=== PATIENT | female | born 1965 | race African-American/Black ===

== ENCOUNTER 2020-03-25 11:01 | Emergency (ER) | payer OTHER ==
--- OUTSIDE RECORDS SUMMARY | 2020-03-25 11:51 | XMS REPORT ---
:1965 Author Organization [employer] Care Team Providers Name Role Phone Darius Graf Provider Role Unavailable Allergies, Adverse Reactions, Alerts Substance Reaction Event Type N.K.D.A. 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
--- OUTSIDE RECORDS SUMMARY | 2020-03-25 11:51 | XMS REPORT ---
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
--- OUTSIDE RECORDS SUMMARY | 2020-03-25 11:51 | XMS REPORT | Continuity of Care Document ---
:1965 Author Organization [facility] Care Team Providers Name Role Phone [facility] Unavailable Un available Problems Problem Status Onset Classification Date Comments Sourc e Date Reported Posterior tibial Active Problem 12/06/2018 [place] [facility] dysfunction [facility] Posterior Active Problem 12/06/2018 [facility] Tibialis [facility]iatry Tendinitis Ass[facility] Type 2 diabetes Active Problem 12/06/2018 [place] [facility] mellitus without Pod iatry complication, Assoc without long-term current use of insulin Joint Active Problem 12/06/2018 [place] [facility] Contracture [facility] Calcaneal spur Active Problem 12/06/2018 [place] [facility] Arthritis - Active Problem 12/06/2018 [place] [facility] Degenerative [facility] y [facility] Medications Medication Details Route Status Patient Ordering Order Source Instructions Provider Date Tramadol one tab orally Active 50 mg orally Koepsel 01/18/20 [place] [facility] every 4-6 hours 18 [facility] prn pain Assoc Allergies, Adverse Reactions, Alerts No Known Medication Allergies Immunizations No Data Provided for This Section Results No Data Provided for This Section Pathology Reports No Data Provided for This Section Diagnostic Reports No Data Provided for This Section Consultation Notes No Data Provided for This Section Discharge Summaries No Data Provided for This Section History and Physicals No Data Provided for This Section Vital Signs No Data Provided for This Section Encounters No Data Provided for This Section Procedures No Data Provided for This Section Assessment and Plan No Data Provided for This Section Plan of Care No Data Provided for This Section Social History No Data Provided for This Section Family History No Data Provided for This Section Advance Directives No Data Provided for This Section Functional Status No Data Provided for This Section
--- OUTSIDE RECORDS SUMMARY | 2020-03-25 11:51 | XMS REPORT ---
[...] Primary osteoarthritis of right M19.071 Active foot Assessment Primary osteoarthritis of right M19.071 Active foot Assessment Pain, joint, foot, right M25.571 Act irena Medications Medication Code Code Instructions Start End Status Dosage System Date Date Lisinopril-Hyd [facility] [id number] Active not rochlorothiazi defined de Aspirin [address] [facility] [id number] Active not defined Tramadol HCl NDC 0 Active not defined PredniSONE [facility] [id number] 10 MG Orally Feb 11Jan Active 1 t ablet Once a day 2019 Metformin HCl [facility] [address]-17 Active not defined Results No Known Results Summary Purpose [employer]ClinicalWorks Submission
--- OUTSIDE RECORDS SUMMARY | 2020-03-25 11:51 | XMS REPORT | Continuity of Care Document ---
:1965 Author Organization [facility] t Address [address] [place] [address] Care Team Providers Name Role Phone Iraida RAIN Primary Care Physician Unavailable UNKE Attending Clinician Unavailable CANDIDO Attending Clinician Unavailable Gaurang FLOWERS Attending Clinician Gabino LANGE, L Attending Clinician Unavailable Candido FLOWERS Attending Clinician Iraida Rain MD Attending Clinician Payers Payer Name Policy Type Policy Number Effective Date Expiration Date Bassam BISHOP O POS [id number] 2016 00:00:00 OPEN ACCESS Problems Condition Condition Condition Status Onset Resolution Last Treating Co mments Source Name Details Category Date Date Treatment Clinician Date Endometriu Endometriu Disease Active 0 M D m m 1-17 Anderso thickened thickened 00:00: n 00 Postmenopa Postmenopa Disease Active 0 M D usal usal 09-28 Anderso bleeding bleeding 00:00: n 00 Morbid Morbid Disease Active MD obesity obesity 09-27 Anderso 00:00: n 00 Dysfunctio Dysfunctio Disease Active 0 M D nal nal 09-27 Anderso uterine uterine 00:00: n bleeding bleeding 00 Hypertensi Hypertensi Disease Active 2019-0 M D on on 09-27 Anderso 00:00: n 00 Primary Primary Problem Active [facility] left knee left knee [facility] Primary Primary Problem Active [facility]oarth[facility] left [facility] left foot l [facility] Primary Primary Problem Active [facility] osteoarthr osteoarthr [facility] - [facility] right foot right foot l [facility] Posterior Problem Active 2018-12-06 Me moria tibial 02:45:07 l tendon [facility] dysfunctio Posterior n tibial tendon dysfunctio n Active Problem 12/06/2018 [facility] Posterior Problem Active 2018-12-06 Me moria Tibialis 02:45:07 l Tendinitis Ashkan n Posterior Tibialis Tendinitis Active Problem 12/06/2018 [facility] Type 2 Problem Active 2018-12-06 [facility] diabetes 02:45:07 l mellitus Type 2 Ashkan n without diabetes complicati mellitus on, without without complicati long-term on, current without use of long-term insulin current use of insulin Active Problem 12/06/2018 [facility] Joint Problem Active 2018-12-06 [facility] Contractur 02:45:07 l e Joint [place] Contractur e Active Problem 12/06/2018 [facility] Calcaneal Problem Active 2018-12-06 Me moria spur 02:45:07 l [place] Calcaneal spur Active Problem 12/06/2018 [facility] Arthritis Problem Active 2018-12-06 Me moria - 02:45:07 l Degenerati Ashkan n ve Arthritis - Degenerati ve Active Problem 9 [facility] Allergies, Adverse Reactions, Alerts This patient has no known allergies or adverse reactions. Family History Family Member Diagnosis Comments Start Date Stop Date Source Paternal aunt Breast cancer MD Witt son Natural sister -Breast cancer Social History Social Habit Start Date Stop Date Quantity Comments Source Sex Assigned At MD Ortiz on Tobacco use and 2019-06-15 2019-06-15 Never used MD Ortiz on exposure 00:00:00 00:00:00 Alcohol intake 2019-06-15 2019-06-15 Current drinker of MD Omer 00:00:00 00:00:00 alcohol (finding) Alcohol Comment 2018-09-28 2018-09-28 Occasional drinker Anna Omer 00:00:00 00:00:00 Smoking Status Start Date Stop Date Source Never smoker MD Omer Medications Ordered Filled Start Stop Current Ordering Indication Dosage Frequency Signature Comments Components Source Medication Medication Date Date Medication? Clinician (SIG) Name Name PredniSONE PredniSONE 2019- Yes Darius [address] [facility] 9-14 09-19 [facility] cyanocobala 2020- No 1{tbl} Take 1 M D min, 1-15 -15 tablet by Anderso vitamin 20:10: 00:00 mouth n B-12, 14 :00 daily. (VITAMIN B-12 ORAL) BIOTIN ORAL 2020- No 1{tbl} Take 1 M D 1-15 -15 tablet by Anderso 20:10: 00:00 mouth n 10 :00 daily. cholecalcif Yes 1{tbl} Take 1 MD rickie, 1-15 tablet by Anderso vitamin D3, 20:10: mouth n (VITAMIN D3 09 daily. ORAL) aspirin 81 Yes 81mg Take 81 mg M D mg EC 1-15 by mouth Anderso tablet 20:10: daily. n 09 metFORMIN Yes 1{tbl} Take 1 MD (GLUCOPHAGE 1-16 tablet by And erso ) 500 mg 00:00: mouth n tablet 00 daily. Tramadol Yes Ignacio one tab [facility] a 8-20 Koepsel l 00:00: [place] 00 lisinopril- Yes 1{tbl} Take 1 MD hydrochloro 7-29 tablet by And erso thiazide 00:00: mouth n (PRINZIDE,Z 00 daily. ESTORETIC) 20-12.5 mg per tablet Aspirin 81 Aspirin 81 Yes Darius not [facility] Tramadol Tramadol Yes Darius not [facility] HCl HCl Graf defined [facility] Metformin Metformin Yes Darius not [facility] HCl HCl [facility]f defined [facility] Lisinopril- Lisinopril- Yes Darius not [facility] Hydrochloro Hydrochloro Graf defined [facility] Vital Signs Vital Name Observation Time Observation Value Comments Source Systolic blood pressure 2019-06-14 19:40:50 113 mm[Hg] MD Omer Diastolic blood pressure 2019-06-14 19:40:50 75 mm[Hg] MD Omer Heart rate 2019-06-14 19:40:50 109 /min MD Eduar childers Body temperature 2019-06-14 19:40:50 36.78 Jeanette MD Kamilah emerson Respiratory rate 2019-06-14 19:40:50 18 /min MD Kamilah emerson Body weight 2019-06-14 19:40:50 160.7 kg MD Eduar childers BMI 2019-06-14 19:40:50 67.24 kg/m2 MD Eduar childers Procedures Procedure Date / Time Performed Performing Clinician Sour e SURGICAL BIOPSY HISTORIC 2019-06-14 18:00:00 Conversion, Jyotsna Omer PATHOLOGY BIOPSY SPECIMEN 2019-06-14 00:00:00 Jude Rey MD INTERPRETATION US TRANSVAGINAL 2019-05-16 17:16:42 Jude Rey MD Encounters Start End Encounter Admission Attending Care Care Encounter Source Date/Time Date/Time Type Type Clinicians Facility Department ID 2020-02-14 2020-02-14 [facility] [id number] [facility] 08:26:00 08:26[facility] 2020-02-12 2020-02-12 [facility] [id number] [facility] 08:30:00 08:30:00 [facility] 2020-01-26 2020-01-26 Outpatient VANESSA SALDANA [facility] [id number] 00:00:00 00:00:00 Angel herrera 2020-01-24 2020-01-24 Outpatient JODI REY MDA MDA [id number] 00:00:00 00:00:00 JUDE herrera 2020-01-19 2020-01-19 [facility] [id number] [facility] 08:30:00 08:30[facility]00 [facility] Clin[facility] 2019-12-13 2019-12-13 Outpatient VANESSA SALDANA MDA MDA [id number] 00:00:00 00:00:00 Angel herrera 2019-12-13 2019-12-13 Outpatient JODI REY MDA MDA [id number] 00:00:00 00:00:00 JUDE herrera 2018-11-30 2018-11-30 Outpatient [facility] [id number] [facility]Clinic 10:40:00 10:40:00 Podiatry [facility] 2018-09-06 2018-09-06 [facility] [id number] [facility] 08:00:00 08:00:00 [facility] Clinics 2018-04-28 2018-04-28 Outpatient [facility] [id number] eClinic 09:00:00 09:00:00 Podiatry Podiatry altoño escamillas [facility] 2018-01-17 2018-01-17 Outpatient [facility] [id number] [facility]Clinic 11:19:00 11:19:00 [facility] Results Test Description Test Time Test Comments Results Result Sour e Comments US Transvaginal 2019-04-30 1. Several uterine MD Omer 7 fibroids. At least 1 20:36:19 of the likely fibroids has a significant submucosal component. 2. Endometrial stripe measures up to 0.6 cm. This is thickened given the patient's postmenopausal status. 3. Nonvisualization of the ovaries. Please see above for details. Interface, Radiology Results In - 05/16/2019 2:38 PM CSTFULL RESULT:Examination: US TRANSVAGINAL on 05/16/2019 11:16 AMClinical History: Postmenopausal bleedingIndication: Post Menopausal BleedingComparison: Ultrasound dated 09/30/2018.Technique: Grayscale and color Doppler transvaginal ultrasound.Findings:T he uterus measures 8.6 x 4.8 x 4.9 cm. There are multiple uterine fibroids identified. For example, in the left uterine body there is a partially necrotic/cavitary fibroid measuring up to 2.6 x 2.3 x 2.0 cm as compared to 2.9 x 3.6 x 2.8 cm. Towards the anterior midline, there is a 2.2 x 1.4 x 1.8 cm intramural fibroid as compared to 2.2 x 2.1 x 2.0 m. Towards the right uterus, there is a 2.0 x 1.9 x 1.8 cm intramural fibroid. There is an additional lesion along the endometrial stripe towards the midline measuring up to 1.5 x 1.4 cm and has a similar sonographic appearance and size as compared to prior ultrasound and most likely represents a submucosal fibroid. The finding should be correlated with prior hysteroscopy and endometrial biopsies to exclude an endometrial-based lesion/polyp.Of note, evaluation of the endometrial stripe is significantly limited secondary to the presence of the multiple uterine fibroids limiting evaluation. However, the endometrial stripe does measures up to 0.6 cm in thickness similar as compared to the prior exam. Neither of the ovaries were visualized.IMPRESSION :1. Several uterine fibroids. At least 1 of the likely fibroids has a significant submucosal component.2. Endometrial stripe measures up to 0.6 cm. This is thickened given the patient's postmenopausal status.3. Nonvisualization of the ovaries.Please see above for details.
[2020-03-25 12:29] LABS: Absolute Lymphocytes (CBC) 1.3 K/uL (0.7-4.9); Basophils % 0.6 % (0-1.3); Hematocrit 40.7 % (36.0-45.0); Lymphocytes % 12.9 % (15.3-44.8); MPV 8.1 fL (7.6-11.3); RBC Red Blood Cell Count 4.73 M/uL (3.86-4.86)
--- NOTE | 2020-03-25 12:33 | RAD REPORT ---
EXAM DESCRIPTION: US - Extremity Venous Uni Ltd - 03/25/2020 11:59 am CLINICAL HISTORY: PAIN Leg swelling and edema. COMPARISON: No comparisons FINDINGS: Left lower extremity venous system was interrogated with Doppler technique. Normal flow, c ompressibility and augmentation was noted. There is no DVT present. IMPRESSION: No evidence of left lower extremity deep venous thrombosis.
--- NOTE | 2020-03-25 12:35 | RAD REPORT ---
EXAM DESCRIPTION: RAD - Ankle Left 3 View - 03/25/2020 12:16 pm CLINICAL HISTORY: Pain;Swelling COMPARISON: No comparisons FINDINGS: Moderate soft tissue swelling is seen about the left ankle. Flatfoot deformity is present with moderate intertarsal degenerative changes. Large posterior and plantar calcaneal spurs.
[2020-03-25 12:47] LABS: Albumin 3.3 g/dL (3.4-5.0); Bilirubin Total 0.8 mg/dL (0.2-1.0); Potassium 3.4 mmol/L (3.5-5.1); Protein, Total 9.5 g/dL (6.4-8.2)
[2020-03-25] MEDS ORDERED: ONDANSETRON 4 MG/2 ML VIAL ONE (12:54)
[2020-03-25] MEDS ORDERED: MORPHINE 2 MG/ML SYR ONE ×2 (12:54→14:07)
[2020-03-25] MEDS ORDERED: KETOROLAC 30 MG/ML INJ ONE (12:55)
[2020-03-25] MEDS ORDERED: NA CHLORIDE 0.9% 1,000 ML ONE (12:55)
--- NOTE | 2020-03-25 12:59 | EDPHYS ---
Physician Documentation [facility] Name: Isabel Mccabe Age: 55 yrs Sex: Female : 1965 Arrival Date: 03/25/2020 Time: 11:03 Bed 16 Private MD: ED Physician Shivam Omer HPI: 03/25 11:29 This 55 yrs old Black Female presents to ER via EMS with complaints of Ankle Swelling - laura ankle pain. 11:29 The patient presents with decreased range of motion. The complaints affect the left laura ankle. Onset: The symptoms/episode began/occurred 3 month(s) ago. Context: The problem was sustained at an unknown location, resulted from a chronic degenerative joint disease, an unknown cause, The mechanism of injury is unknown. Associated signs and symptoms: The patient has no apparent associated signs or symptoms. Severity of symptoms: At their worst the symptoms were moderate, in the emergency department the symptoms are unchanged. The patient has experienced similar episodes in the past, multiple times, chronically. Historical: - Allergies: 11:13 No Known Allergies; iw - Immunization history:: Adult Immunizations up to date. - Family history:: not pertinent. - Social history:: Smoking status: Patient denies any tobacco usage or history of. ROS: 11:29 Constitutional: Negative for fever, chills, and weight loss, Eyes: Negative for injury, laura pain, redness, and discharge, ENT: Negative for injury, pain, and discharge, Neck: Negative for injury, pain, and swelling, Cardiovascular: Negative for chest pain, palpitations, and edema, Respiratory: Negative for shortness of breath, cough, wheezing, and pleuritic chest pain, Abdomen/GI: Negative for abdominal pain, nausea, vomiting, diarrhea, and constipation, Back: Negative for injury and pain, : Negative for injury, bleeding, discharge, and swelling, Skin: Negative for injury, rash, and discoloration, Neuro: Negative for headache, weakness, numbness, tingling, and seizure, Psych: Negative for depression, anxiety, suicide ideation, homicidal ideation, and hallucinations, Allergy/Immunology: Negative for hives, rash, and allergies, Endocrine: Negative for neck swelling, polydipsia, polyuria, polyphagia, and marked weight changes, Hematologic/Lymphatic: Negative for swollen nodes, abnormal bleeding, and unusual bruising. 11:29 MS/extremity: Positive for decreased range of motion, pain, swelling, tenderness, of the left Achilles, left lateral malleolus and left medial malleolus. Exam: 11:29 Constitutional: This is a well developed, well nourished patient who is awake, alert, laura and in no acute distress. Head/Face: Normocephalic, atraumatic. Eyes: Pupils equal round and reactive to light, extra-ocular motions intact. Lids and lashes normal. Conjunctiva and sclera are non-icteric and not injected. Cornea within normal limits. Periorbital areas with no swelling, redness, or edema. ENT: Nares patent. No nasal discharge, no septal abnormalities noted. Tympanic membranes are normal and external auditory canals are clear. Oropharynx with no redness, swelling, or masses, exudates, or evidence of obstruction, uvula midline. Mucous membranes moist. Neck: Trachea midline, no thyromegaly or masses palpated, and no cervical lymphadenopathy. Supple, full range of motion without nuchal rigidity, or vertebral point tenderness. No Meningismus. Chest/axilla: Normal chest wall appearance and motion. Nontender with no deformity. No lesions are appreciated. Cardiovascular: Regular rate and rhythm with a normal S1 and S2. No gallops, murmurs, or rubs. Normal PMI, no JVD. No pulse deficits. Respiratory: Lungs have equal breath sounds bilaterally, clear to auscultation and percussion. No rales, rhonchi or wheezes noted. No increased work of breathing, no retractions or nasal flaring. Abdomen/GI: Soft, non-tender, with normal bowel sounds. No distension or tympany. No guarding or rebound. No evidence of tenderness throughout. Back: No spinal tenderness. No costovertebral tenderness. Full range of motion. Female : Normal external genitalia. Skin: Warm, dry with normal turgor. Normal color with no rashes, no lesions, and no evidence of cellulitis. Neuro: Awake and alert, GCS 15, oriented to person, place, time, and situation. Cranial nerves II-XII grossly intact. Motor strength 5/5 in all extremities. Sensory grossly intact. Cerebellar exam normal. Normal gait. Psych: Awake, alert, with orientation to person, place and time. Behavior, mood, and affect are within normal limits. 11:29 Musculoskeletal/extremity: Extremities: grossly normal except: noted in the left lateral ankle, left medial ankle and anterior aspect of left ankle: decreased ROM, pain, swelling, tenderness. Vital Signs: 11:12 BP 130 / 70; Pulse 97; Resp 18 S; Temp 98.6; Pulse Ox 97% on R/A; Weight 152.41 kg; iw Height 5 ft. 5 in. (165.10 cm); Pain 10/10; 13:08 BP 141 / 87; Pulse 64; Resp 16; Pulse Ox 98% on R/A; iw 11:12 Body Mass Index 55.91 (152.41 kg, 165.10 cm) iw MDM: 11:14 Patient medically screened. [facility] 11:31 Differential diagnosis: fracture, sprain, arthritis, gout. Data reviewed: vital signs, [facility] nurses notes, lab test result(s), radiologic studies, doppler, plain films. 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 Test interpretation: by ED physician or midlevel provider: plain radiologic studies. Counseling: I had a detailed discussion with the patient and/or guardian regarding: the historical points, exam findings, and any diagnostic results supporting the discharge/admit diagnosis, lab results, radiology results. 03/25 11:28 Order name: CBC with Diff; Complete Time: 12:55 [facility] 03/25 11:28 Order name: Comprehensive Metabolic Panel; Complete Time: 12:55 [facility] 03/25 11:28 Order name: Ankle Left 3 View XRAY; Complete Time: 12:55 [facility] 03/25 11:28 Order name: US Extremity Venous Unilateral Ltd; Complete Time: 12:55 laura 03/25 11:29 Order name: Sed Rate; Complete Time: 12:55 [facility] 03/25 11:32 Order name: Uric Acid; Complete Time: 12:55 [facility] 03/25 11:29 Order name: Walking boot: short, before dc; Complete Time: 18:52 laura 03/25 11:32 Order name: Ice pack; Complete Time: 18:49 laura Administered Medications: 12:49 Drug: TORadol 30 mg Route: IVP; Site: left antecubital; iw 13:50 Follow up: Response: No adverse reaction iw 12:49 Drug: morphine 2 mg Route: IVP; Site: left antecubital; iw 12:50 Drug: NS 0.9% 500 ml Route: IV; Rate: bolus; Site: left antecubital; iw 12:50 Drug: Zofran (Ondansetron) 4 mg Route: IVP; Site: left antecubital; iw 13:10 Follow up: Response: No adverse reaction iw 13:30 Drug: NS 0.9% 1000 ml Route: IV; Rate: 125 ml/hr; Site: left antecubital; iw 13:30 Drug: Colcrys 1.2 mg Route: PO; iw 14:00 Follow up: Response: No adverse reaction iw 13:30 Drug: Potassium Effervescent Tablet 25 mEq Route: PO; iw 14:00 Follow up: Response: No adverse reaction iw 13:30 Drug: Decadron - Dexamethasone 10 mg Route: IVP; Site: left antecubital; iw 14:00 Follow up: Response: No adverse reaction iw 13:45 Drug: morphine 2 mg Route: IVP; Site: left antecubital; iw 14:00 Follow up: Response: No adverse reaction; Pain is decreased iw 14:00 Drug: Colcrys 0.6 mg Route: PO; iw 14:03 Follow up: Response: No adverse reaction iw Disposition: 03/25/20 12:58 Discharged to Home. Impression: Pain in left ankle and joints of left foot, Pain in left lower leg, Obesity, unspecified, Hypokalemia, Gout. - Condition is Stable. - Discharge Instructions: Joint Pain, Arthritis, Gout, Musculoskeletal Pain, Obesity, Adult, Cryotherapy, Euyo-fk-Qwnr, Gout, Jwjo-es-Uwkj, Arthritis, Vtan-jh-Nqep, Ankle Pain, Cryotherapy, Obesity, Adult, Euka-ex-Onez. - Prescriptions for Tylenol- Codeine #3 300-30 mg Oral Tablet - take 2 tablet by ORAL route every 6 hours As needed; 30 tablet. indomethacin 50 mg Oral capsule - take 1 capsule by ORAL route 3 times per day with food; 21 capsule. - Medication Reconciliation Form, Thank You Letter, Antibiotic Education, Prescription Opioid Use, Work release form form. - Follow up: Private Physician; When: 2 - 3 days; Reason: Recheck today's complaints, Continuance of care, Re-evaluation by your physician. Follow up: Anibal Chaparro; When: 2 - 3 days; Reason: Recheck today's complaints, Continuance of care, Re-evaluation by your physician. - Problem is new. - Symptoms have improved. Signatures: Dispatcher [employer] Shivam Cifuentes MD MD cha Williams, Irene, RN RN iw Corrections: (The following items were deleted from the chart) 14:03 12:58 03/25/2020 12:58 Discharged to Home. Impression: Pain in left ankle and joints of iw left foot; Pain in left lower leg; Obesity, unspecified; Hypokalemia; Gout. Condition is Stable. Discharge Instructions: Joint Pain, Arthritis, Musculoskeletal Pain, Obesity, Adult, Cryotherapy, Jqwe-cp-Hzyb, Arthritis, Bzhx-cd-Zyua, Ankle Pain, Cryotherapy, Obesity, Adult, Xmcw-yz-Xiau. Prescriptions for Tylenol-Codeine #3 300-30 mg Oral Tablet - take 2 tablet by ORAL route every 6 hours As needed; 30 tablet, Motrin IB 200 mg Oral Tablet - take 3 tablet by ORAL route every 6 hours As needed as needed with food; 30 tablet. and Forms are Medication Reconciliation Form, Thank You Letter, Antibiotic Education, Prescription Opioid Use. Follow up: Private Physician; When: 2 - 3 days; Reason: Recheck today's complaints, Continuance of care, Re-evaluation by your physician. Follow up: Anibal Chaparro; When: 2 - 3 days; Reason: Recheck today's complaints, Continuance of care, Re-evaluation by your physician. Problem is new. Symptoms have improved. laura
--- NOTE | 2020-03-25 12:59 | ER ---
Nurse's Notes [facility] Name: Isabel Mccabe Age: 55 yrs Sex: Female : 1965 Arrival Date: 03/25/2020 Time: 11:03 Bed 16 Private MD: Diagnosis: Pain in left ankle and joints of left foot;Pain in left lower leg;Obesity, unspecified;Hypokalemia;Gout Presentation: 03/25 11:09 Chief complaint: Patient states: has hx of chronic left ankle pain for a few months iw now, has been seen at [facility], was told it was arthritis, had xray and cortisone injections, having increased pain over past couple days. Coronavirus screen: At this time, the client does not indicate any symptoms associated with coronavirus-19. Ebola Screen: Patient negative for fever greater than or equal to 101.5 degrees Fahrenheit, and additional compatible Ebola Virus Disease symptoms Patient denies exposure to infectious person. Patient denies travel to an Ebola-affected area in the 21 days before illness onset. No symptoms or risks identified at this time. Initial Sepsis Screen: Does the patient meet any 2 criteria? No. Patient's initial sepsis screen is negative. Does the patient have a suspected source of infection? No. Patient's initial sepsis screen is negative. Risk Assessment: Do you want to hurt yourself or someone else? Patient reports no desire to harm self or others. Onset of symptoms was December 2019. 11:09 Method Of Arrival: EMS: [facility] iw 11:09 Acuity: PRADIP 3 iw Triage Assessment: 13:00 General: Appears in no apparent distress. Behavior is calm, cooperative. iw Historical: - Allergies: 11:13 No Known Allergies; iw - Immunization history:: Adult Immunizations up to date. - Family history:: not pertinent. - Social history:: Smoking status: Patient denies any tobacco usage or history of. Screenin:09 Abuse screen: Denies threats or abuse. Denies injuries from another. Nutritional iw screening: No deficits noted. Tuberculosis screening: No symptoms or risk factors identified. Fall Risk None identified. Assessment: 11:30 General: Appears in no apparent distress. Behavior is calm, cooperative. Pain: iw Complains of pain in left lateral ankle, left medial ankle and anterior aspect of left ankle Pain currently is 10 out of 10 on a pain scale. Neuro: Level of Consciousness is awake, alert, obeys commands, Oriented to person, place, time, situation, Moves all extremities. Full function. Cardiovascular: Patient's skin is warm and dry. Respiratory: Respiratory effort is even, unlabored, Respiratory pattern is regular, symmetrical. GI: No signs and/or symptoms were reported involving the gastrointestinal system. Derm: Skin is healthy with good turgor. Musculoskeletal: Range of motion: limited in left ankle Swelling present in left lateral ankle, left medial ankle and anterior aspect of left ankle. 13:08 Reassessment: Patient appears in no apparent distress at this time. Patient and/or iw family updated on plan of care and expected duration. Pain level reassessed. Patient is alert, oriented x 3, equal unlabored respirations, skin warm/dry/pink. 14:00 Reassessment: Patient appears in no apparent distress at this time. Patient and/or iw family updated on plan of care and expected duration. Pain level reassessed. Patient is alert, oriented x 3, equal unlabored respirations, skin warm/dry/pink. Patient states feeling better. Vital Signs: 11:12 BP 130 / 70; Pulse 97; Resp 18 S; Temp 98.6; Pulse Ox 97% on R/A; Weight 152.41 kg; iw Height 5 ft. 5 in. (165.10 cm); Pain 10/10; 13:08 BP 141 / 87; Pulse 64; Resp 16; Pulse Ox 98% on R/A; iw 11:12 Body Mass Index 55.91 (152.41 kg, 165.10 cm) ED Course: 11:03 Patient arrived in ED. iw 11:08 Ameena Webster, RN is Primary Nurse. iw 11:12 Triage completed. iw 11:13 Arm band placed on. iw 11:14 Shivam Omer MD is Attending Physician. laura 11:30 Patient has correct armband on for positive identification. iw 11:55 US Extremity Venous Unilateral Ltd In Process Unspecified. EDMS 12:15 Initial lab(s) drawn, by ga, sent to lab. Inserted saline lock: 20 gauge in left iw antecubital area, using aseptic technique. 12:16 Ankle Left 3 View XRAY In Process Unspecified. EDMS 12:58 Anibal Chaparro MD is Referral Physician. laura 14:02 No provider procedures requiring assistance completed. Patient did not have IV access iw during this emergency room visit. Administered Medications: 12:49 Drug: TORadol 30 mg Route: IVP; Site: left antecubital; iw 13:50 Follow up: Response: No adverse reaction iw 12:49 Drug: morphine 2 mg Route: IVP; Site: left antecubital; iw 12:50 Drug: NS 0.9% 500 ml Route: IV; Rate: bolus; Site: left antecubital; iw 12:50 Drug: Zofran (Ondansetron) 4 mg Route: IVP; Site: left antecubital; iw 13:10 Follow up: Response: No adverse reaction iw 13:30 Drug: NS 0.9% 1000 ml Route: IV; Rate: 125 ml/hr; Site: left antecubital; iw 13:30 Drug: Colcrys 1.2 mg Route: PO; iw 14:00 Follow up: Response: No adverse reaction iw 13:30 Drug: Potassium Effervescent Tablet 25 mEq Route: PO; iw 14:00 Follow up: Response: No adverse reaction iw 13:30 Drug: Decadron - Dexamethasone 10 mg Route: IVP; Site: left antecubital; iw 14:00 Follow up: Response: No adverse reaction iw 13:45 Drug: morphine 2 mg Route: IVP; Site: left antecubital; iw 14:00 Follow up: Response: No adverse reaction; Pain is decreased iw 14:00 Drug: Colcrys 0.6 mg Route: PO; iw 14:03 Follow up: Response: No adverse reaction iw Outcome: 12:58 Discharge ordered by MD. sanchez 14:02 Discharged to home ambulatory, via wheelchair, with family. iw 14:02 Condition: good 14:02 Discharge instructions given to patient, Instructed on discharge instructions, follow up and referral plans. medication usage, Demonstrated understanding of instructions, follow-up care, medications, Prescriptions given X 2. 14:03 Patient left the ED. iw Signatures: Dispatcher [employer] Shivam Cifuentes MD MD cha Williams, Irene, RN RN iw
[2020-03-25] MEDS ORDERED: dexAMETHasone 4 MG/ML VIAL ONE (13:35)
[2020-03-25] MEDS ORDERED: COLCHICINE 0.6 MG TAB ONE ×2 (13:35)
[2020-03-25] MEDS ORDERED: POTASSIUM 25 MEQ EFFERV TAB ONE (13:36)
[2020-03-25 14:13] VITALS: TEMP 98.6
[2020-03-25 14:14] VITALS: BP 141/87; O2SAT 98
== END 2020-03-25 14:03 | disposition home or self-care (01) ==
LOC: ER 11:01
DX: M10.9 Gout, unspecified (principal); M79.662 Pain in left lower leg; E87.6 Hypokalemia; E66.9 Obesity, unspecified
CPT/HCPCS: 85025; 36415; 84550; 85652; 80053; 73610; 93971; 96375; 96374; 99284; J1100; J2270 ×2; J7030; J2405

== ENCOUNTER 2022-07-29 07:31 | Day surgery (SDC) | payer OTHER ==
[2022-07-29] MEDS ORDERED: NA CHLORIDE 0.9% 1,000 ML ONE (08:02)
[2022-07-29] MEDS ORDERED: propofoL 200 MG/20 ML VIAL IV ONE ×2 (09:29→09:30)
[2022-07-29 10:48] VITALS: BP 107/74; TEMP 97.8; O2SAT 100
== END 2022-07-29 10:55 | disposition home or self-care (01) ==
LOC: OR 07:31
PROVIDERS: ATTEND Internal Medicine Gastroenterology
PROC: 0DJD8ZZ Inspection of Lower Intestinal Tract, Via Natural or Artificial Opening Endoscopic (ICD-10-PCS; principal; 2022-07-29 08:45)
DX: Z12.11 Encounter for screening for malignant neoplasm of colon (principal); I10 Essential (primary) hypertension; K64.8 Other hemorrhoids; Q43.8 Other specified congenital malformations of intestine
CPT/HCPCS: 82947 ×2; 45378; J2704 ×2; J7030

== ENCOUNTER 2023-02-18 01:37 | Emergency (ER) | payer OTHER ==
--- OUTSIDE RECORDS SUMMARY | 2023-02-18 01:41 | XMS REPORT | Clinical Summary ---
:1965 Author Organization [facility] MD [facility] Address [address] [place] [address] Care Team Providers Name Role Phone Shree Cardoso MD Unavailable Rosibel Mcdonald MD Unavailable Unavailable Jasmin Hugo MD Primary Care Provider Tomás Dykes MD Unavailable Allergies No known active allergies Medications Medication Sig Dispensed Refills Start Date End Date Status cholecalciferol, Take 1 tablet by 0 Active vitamin D3, (VITAMIN mouth daily. D3 ORAL) aspirin 81 mg EC Take 81 mg by 0 Active tablet mouth daily. lisinopril-hydrochloro Take 1 tablet by 0 12/26/2017 Active thiazide mouth daily. 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, 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 after 02/18/2022 Surgical History Surgery Date Site/Laterality Comments STOMACH SURGERY 05/31/1988 - 05/30/1989 CHOLECYSTECTOMY 05/31/1988 - 05/30/1989 open Medical History Medical History Date Comments Hypertension Cyst of breast Arthritis Other pulmonary embolism without acute cor pulmonale 2019 vs 2020 Hyperglycemia Family History Medical History Relation Name Comments Breast cancer Paternal Aunt -Breast cancer Sister Lexie Miller Relation Name Status Comments Paternal Aunt Sister Lexie Miller Social History Tobacco Use Types Packs/Day Years Used Date Smoking Tobacco: Never Smokeless Tobacco: Never Alcohol Use Standard Drinks/Week Comments Yes 0 (1 standard drink = 0.6 oz pure alcoho l) Occasional drinker Sex Assigned at Date Recorded Not on file Job Start Date Occupation Industry Not on file Not on file Not on file Obstetrics History Para Term AB IAB SAB Ectopic Multiple Living Live Births 1 Date Outcome GA Total Labor/2nd/3rd Weight Sex Delivery Anes PTL Chitra A 1 A5 Name Clin Labor Term Comments Normal vaginal delivery Last Filed Vital Signs Not on file Plan of Treatment Date Type Specialty Care Team Description 03/12/2023 Consult Gynecology Jasmin Hugo MD [facility] [place], [place] [address] (Wo rk) Health Maintenance Due Date Last Done Comments COVID-19 Vaccination (3 - Pfizer series) 11/02/2020 021, 08/17/2020 Results Not on fileafter 02/18/2022 Insurance Payer Benefit Plan / Subscriber ID Effective Dates Phone Addre ss Type Group [employer] MANAGED CIGNA HMO POS [id number] 2016-Present [id number] HMO CARE OPEN ACCESS KAYLA Enrique [id number] Care Teams 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
--- OUTSIDE RECORDS SUMMARY | 2023-02-18 01:43 | XMS REPORT | Continuity of Care Document ---
:1965 Author Organization [facility] t Address [address] [facility] [address]. [address] [place] [address] Care Team Providers Name Role Phone [phone] Primary Care Physician Unavailable SYSTEM, PROVIDER NOT IN Attending Clinician Unavailable Rosibel Mcdonald Attending Clinician Unavailable Richy Che Attending Clinician Unavailable Arsen Carballo Attending Clinician Unavailable Ela Mcneil Attending Clinician [phone] Iker HENAO, Pedro Kunz Attending Clinician [phone] Lalo LANGE, August Attending Clinician Unavailable ELA GUTIÉRREZ Attending Clinician Unavailable LEONORA RAIN Attending Clinician Unavailable CORONA DAVILA Attending Clinician Unavailable Only, Ang Db Test Attending Clinician Unavailable Kavon Fisher Attending Clinician KAVON GRESHAM Attending Clinician Unavailable ALIN GUEVARA Attending Clinician Unavailable Whitley Anglin Attending Clinician [phone] Ebrahim GAS GOLF CART REPAIRER, Rania Attending Clinician Avinash LANGE, Shivam Attending Clinician Unavailable Only, Adc Test Attending Clinician Unavailable Dion Mcintyre MD Attending Clinician Genny Woodall RN Attending Clinician Unavailable Doctor Unassigned, [place] Attending Clinician Unavailable VANESSA EVERETT Attending Clinician Unavailable MAGNUS REY Attending Clinician Unavailable Rosibel Mcdonald Admitting Clinician Unavailable Richy Che Admitting Clinician Unavailable Arsen Carballo Admitting Clinician Unavailable Payers Payer Name Policy Type Policy Number Effective Date Expiration Date S ourdalia Problems Condition Condition Condition Status Onset Resolution Last Treating Co mments Source Name Details Category Date Date Treatment Clinician Date Endometriu Endometriu Disease Active 2020-0 U nivers m m 1-17 [place] [facility] Postmenopa Postmenopa Disease Active 2019-0 U nivers usal usal 5-01 ity of bleeding bleeding 00:00: [place] 00 MD [facility] Morbid Morbid Disease Active 2019-0 Univers obesity obesity 4-30 ity of 00:00: [place] 00 MD [facility] Dysfunctio Dysfunctio Disease Active 2019-0 U nivers nal nal 4-30 ity of uterine uterine 00:00: [place] bleeding bleeding 00 MD [facility] Hypertensi Hypertensi Disease Active 2019-0 U nivers on on 4-30 ity of 00:00: [place] 00 MD [facility] Primary Primary Problem Active Common osteoarthr osteoarthr Sp callie itis of itis of - [facility] left knee left knee [facility] Primary Primary Problem Active Common osteoarthr osteoarthr Sp callie itis of itis of - [facility] left foot left foot [facility] Primary Primary Problem Active Common osteoarthr osteoarthr Sp callie itis of itis of - [facility] right foot right foot [facility] Posterior Posterior Problem Active 2018-12-06 Memoria tibial tibial 02:45:07 l tendon tendon Freddy dysfunctio dysfunctio n n Active Problem 12/06/2018 [facility] Posterior Problem Active 2018-12-06 Me moria Tibialis Posterior 02:45:07 l Tendinitis Tibialis Herm hilda Tendinitis Active Problem 12/06/2018 [facility] Type 2 Type 2 Problem Active 2018-12-06 Derik brian diabetes diabetes 02:45:07 l mellitus mellitus Ashkan n without without complicati complicati on, on, without without long-term long-term current current use of use of insulin insulin Active Problem 12/06/2018 [facility] Joint Joint Problem Active 2018-12-06 Memor ia Contractur Contractur 02:45:07 l e e Active [place] Problem 12/06/2018 [facility] Calcaneal Calcaneal Problem Active 2018-12-06 Memoria spur spur 02:45:07 l Active [place] Problem 12/06/2018 [facility] Arthritis Arthritis Problem Active 2018-12-06 Memoria - - 02:45:07 l Degenerati Degenerati He rmann ve ve Active Problem 12/06/2018 [facility] Allergies, Adverse Reactions, Alerts Allergy Allergy Status Severity Reaction(s) Onset Inactive Treating Comm ents Source Name Type Date Date Clinician No Known DA Active U 2020-1 [facility] All[facility]ie 1-21 [place] 00:00: [facility] 00 are [facility] No Known DA Active U 2020-1 [facility] Allergie 1-21 [place] 00:00: [facility] 00 are [facility] No Known DA Active U 2020-1 [facility] Allergie 1-18 [place] s 00:00: Ashraf 00 [facility] No Known DA Active U 2020-1 [facility] Allergie 1-18 [place] s 00:00: Ashraf 00 [facility] NO KNOWN Drug Active Univers ALLERGIE Class ity of S [place] [facility] Family History Family Member Diagnosis Comments Start Date Stop Date Source Paternal aunt Breast cancer [facility] MD Omer [place] Natural sister -Breast cancer [facility] MD Kan [place] r [place] Social History Social Habit Start Date Stop Date Quantity Comments Source [facility] Tobacco use and 2022-12-21 2022-12-21 Smokeless tobacco [facility] exposure 00:00:00 00:00:00 non-user Hospital History of Social 2022-12-21 2022-12-[address] function 00:00:00 00:00:00 Hospital Alcohol intake 2022-01-30 2022-01-30 Current drinker Unive rsity of 00:00:00 00:00:00 of alcohol [facility] Exposure to 2021-12-12 2021-12-22 Not sure University SARS-CoV-2 (event) 00:00:00 09:26:00 [facility] Alcohol Comment 2018-09-28 2018-09-28 Occasional Universit y of 00:00:00 00:00:00 drinker [facility] Sex Ass[birth year] At [birth year] Universit y of 00:00:00 00:00:00 [facility] Smoking Status Start Date Stop Date Source Never smoked tobacco [facility] Medications Ordered Filled Start Stop Current Ordering Indication Dosage Frequency Signature Comments Components Source Medication Medication Date Date Medication? Clinician (SIG) Name Name aspirin Yes 81mg QD Take 1 [facility] (ECOTRIN) 7-24 tablet (81 st 81 MG 08:52: mg total) Hospita enteric 03 by mouth l coated daily. tablet methylPREDN 2022- No [id number] follow [facility] ISolone -24 12-[id number] (Medrol, 00:00: 04:59 directions Ho bree Haro,) 4 mg 00 :00 l tablet Xarelto 20 Yes 20mg QD Take 1 Metho di mg tablet 7-11 tablet (20 st 00:00: mg total) [facility]ospita 00 by mouth l daily. gabapentin Yes [facility] (NEURONTIN) -05 st 300 mg 00:00: Hospita capsule 00 l lisinopriL- Yes 1{tbl} QD Take 1 Me thodi hydrochloro 7-[address] thiazide 00:00: mouth [facility]osp[facility] (PRINZIDE) 00 daily. l 20-25 mg per tablet allopurinoL Yes Method i (ZYLOPRIM) 5-19 st 100 MG 00:00: Hospita tablet 00 l traMADoL Yes 1{capsu Take 1 Univ ers 300 mg MP17 7-15 le} capsule by it y of 13:44: mouth [place] 16 daily. Medical Branch traMADoL Yes 1{capsu Take 1 Univ ers 300 mg MP17 7-15 le} capsule by it y of 13:44: mouth [place] 16 daily. Medical Branch aspirin 81 Yes 81mg Take 81 mg U nivers mg EC 7-15 by mouth ity of tablet 13:43: daily. [address] rivaroxaban Yes 20mg Take 20 mg Univers 20 mg 7-15 by mouth. ity of tablet 13:43: [address] aspirin 81 0 Yes 81mg Take 81 mg U nivers mg EC 7-15 by mouth ity of tablet 13:43: daily. [address] rivaroxaban Yes 20mg Take 20 mg Univers 20 mg 7-15 by mouth. ity of tablet 13:43: [address] clindamycin 2021- No [id number] 300mg Take 1 Univers 300 mg 7-15 - capsule by ity of capsule 00:00: 04:59 mouth 4 [place] 00 [facility] times [place] daily for 10 days. clindamycin 2021- No [id number] 300mg Take 1 Univers 300 mg 7-15 - capsule by ity of capsule 00:00: 04:59 mouth 4 [place] 00 :[facility] [place] daily for 10 days. lisinopriL Yes Univers 20 mg 6-02 ity of tablet 00:00: [place] 00 [facility] lisinopriL 0 Yes Univers 20 mg 6-02 ity of tablet 00:00: [address] Xarelto 20 0 Yes TAKE 1 Unive rs mg tablet 4-10 TABLET BY ity o f 00:00: MOUTH [place] 00 EVERY DAY MD [facility] PredniSONE PredniSONE 2020-0 2020- No Darius 1 tablet Common 02-11 Graf Spirit 00:00: 00:00 - [facility] 00 :00 [facility] cholecalcif 2020-0 Yes 1{tbl} Take 1 Un cristian rickie, 1-15 tablet by ity of vitamin D3, 14:10: mouth [place] (VITAMIN D3 09 daily. ORAL) [facility] aspirin 81 2019-0 Yes 81mg Take 81 mg U nivers mg EC 1-15 by mouth ity of tablet 14:10: daily. [place] 09 [facility] aspirin 81 2018-0 Yes 81mg Take 81 mg U nivers mg EC 8-22 by mouth ity of tablet 18:26: daily. [address] aspirin 81 2018-0 Yes 81mg Take 81 mg U nivers mg EC 8-22 by mouth ity of tablet 18:26: daily. [address] aspirin 81 2018-0 Yes 81mg Take 81 mg U nivers mg EC 8-22 by mouth ity of tablet 18:26: daily. [address] aspirin 81 2018-0 Yes 81mg Take 81 mg U nivers mg EC 8-22 by mouth ity of tablet 13:26: daily. [address] aspirin 81 2018-0 Yes 81mg Take 81 mg U nivers mg EC 8-22 by mouth ity of tablet 13:26: daily. [address] Tramadol 2017-0 Yes Ignacio one tab Memori a 8-20 [place] 00:[place]: [place] Tramadol 2018-0 Yes Ignacio one tab Memori a 8-20 [place] 00:00: [place] Tramadol 2018-0 Yes Ignacio one tab Memori a 8-20 [place] 00:[place]: [place] metFORMIN 2018-0 Yes Univers 500 mg 8-16 ity of tablet 00:00: [address] metFORMIN 2018-0 Yes Univers 500 mg 8-16 ity of tablet 00:00: [address] metFORMIN 2018-0 Yes Univers 500 mg 8-16 ity of tablet 00:00: [address] metFORMIN 2018-0 Yes Univers 500 mg 8-16 ity of tablet 00:00: [address] metFORMIN 2018-0 Yes Methodi (GLUCOPHAGE 8-16 st ) 500 mg 00:00: Hospita tablet 00 l metFORMIN 2018-0 Yes Univers 500 mg 8-16 ity of tablet 00:00: [address] metFORMIN 2018-0 Yes Univers 500 mg 8-16 ity of tablet 00:00: [address] metFORMIN 2018-0 Yes Univers 500 mg 8-16 ity of tablet 00:00: [address] lisinopril- 0 Yes Saravanan s hydrochloro 7-29 ity of thiazide 00:00: [place] 20-12.5 00 [facility] Branch lisinopril- 0 Yes Univer s hydrochloro 7-29 ity of thiazide 00:00: [place] 20-12.5 mg 00 Medical per tablet Branch lisinopril- Yes Univer s hydrochloro 7-29 ity of thiazide 00:00: [place] 20-12.5 mg 00 Medical per tablet Branch lisinopril- Yes Univer s hydrochloro 7-29 ity of thiazide 00:00: [place] 20-12.5 mg 00 Medical per tablet Branch lisinopril- Yes Univer s hydrochloro 7-29 ity of thiazide 00:00: [place] 20-12.5 mg 00 Medical per tablet Branch lisinopril- Yes Univer s hydrochloro 7-29 ity of thiazide 00:00: [place] 20-12.5 mg 00 Medical per tablet Branch lisinopril- Yes Univer s hydrochloro 7-29 ity of thiazide 00:00: [place] 20-12.5 mg 00 Medical per tablet Branch lisinopril- Yes 1{tbl} Take 1 Un cristian hydrochloro 7-29 tablet by ity of thiazide 00:00: mouth [place] (ANABELL,Z 00 daily. MD KELLY) Anderso 20-12.5 mg n per tablet [facility] Aspirin 81 Aspirin 81 Yes Darius not Common Graf defined [facility] Tramadol Tramadol Yes Darius not Comm on HCl HCl Graf defined [facility] Metformin Metformin Yes Darius not Co mmon HCl HCl Graf defined [facility] Lisinopril- Lisinopril- Yes Darius not Common Hydrochloro Hydrochloro Graf defined [facility] thiazide thiazide [facility] Vital Signs Vital Name Observation Time Observation Value Comments Source Systolic blood 2021-12-12 18:34:00 138 mm[Hg] Univer sity of pressure [facility] Diastolic blood 2021-12-12 18:34:00 85 mm[Hg] Unive rsity of [facility] Heart rate 2021-12-12 18:34:00 90 /min [facility] Body temperature 2021-12-12 18:34:00 37.11 Jeanette [facility] Respiratory rate 2021-12-12 18:34:00 18 /min [facility] Body height 2021-12-12 18:34:00 165.1 cm [facility] Body weight 2021-12-12 18:34:00 154.722 kg [facility] BMI 2021-12-12 18:34:00 56.76 kg/m2 [facility] Oxygen saturation in 2021-12-12 18:34:00 97 /min [facility] Arterial blood by [facility] Pulse oximetry Branch Systolic blood 2022-12-21 13:41:00 127 mm[Hg] [facility] pressure Diastolic blood 2022-12-21 13:41:00 81 mm[Hg] [facility] dist [facility] pressure Heart rate 2022-12-21 13:41:00 117 /min [facility] Body height 2022-12-21 13:41:[address] [facility] Body weight 2022-12-21 13:41:[address] [facility] BMI 2022-12-21 13:41:00 45.76 kg/m2 [facility] Procedures Procedure Date / Time Performed Performing Clinician Sour e XR HAND 3+ VW RIGHT 2022-12-21 14:00:27 Dong, Myphuong [facility] Joaquina ASSIGNMENT OF BENEFITS 2020-09-03 14:21:36 Doctor Unassigned, No [facility] Plan of Care Planned Activity Planned Date Details Comments Source Future Scheduled 2023-02-12 [facility] Test 18:04:14 malignant neoplasm of colon (procedure) [code = 703247244] Future Scheduled 2023-02-12 [facility] Test 18:04:14 malignant neoplasm of colon (procedure) [code = 704620488] Future Scheduled 2023-02-12 [facility] Test 18:04:14 malignant neoplasm of colon (procedure) [code = 089658675] Future Scheduled 2023-02-12 Hepatitis C screening [facility] Test 18:04:14 (procedure) [code = 747112801] Future Scheduled 2023-02-12 [facility] Test 18:04:14 malignant neoplasm of cervix (procedure) [code = 122795229] Future Scheduled 2023-02-12 [facility] Test 18:04:14 malignant neoplasm of colon (procedure) [code = 898623652] Future Scheduled 2023-02-12 [facility] Test 18:04:14 malignant neoplasm of colon (procedure) [code = 642362175] Future Scheduled 2023-02-12 COVID-19 VACCINE ([facility] - [facility] Test 18:04:14 Pfizer series) [code = COVID-19 VACCINE (3 - Pfizer series)] Future Scheduled 2023-02-12 INFLUENZA VACCINE [facility] Test 18:04:14 (#1) [code = INFLUENZA VACCINE (#1)] Future Scheduled 2023-02-12 BREAST CANCER [facility] Test 18:04:14 SCREENING [code = BREAST CANCER SCREENING] Future Scheduled 2023-02-11 COVID-19 Vaccination Uni [facility] Test 14:45:52 (3 - Pfizer series) MD [facility] [code = COVID-19 Center Vaccination (3 - Pfizer series)] Encounters Start End Encounter Admission Attending Care Care Encounter Source Date/Time Date/Time Type Type Clinicians Facility Department ID 2023-02-18 Outpatient [id number] Memoria 01:41:06 [id number] Freddy [id number] 2022-12-21 Outpatient [id number] Memoria 20:29:09 [id number] Freddy [id number] 2022-02-12 Outpatient SYSTEM, [facility] [id number] 08:03:19 PROVIDER Angel herrera 2022-02-03 Outpatient [id number] Memoria 10:32:42 [id number] Freddy [id number] 2022-01-30 Outpatient [id number] Memoria 10:01:16 [id number] Freddy [id number] 2021-12-23 Outpatient SYSTEM, [facility] KRISTIN [id number] 14:16:48 PROVIDER Angel herrera 2021-06-25 Outpatient Harry STLMLC STLMLC [id number] Common 11:39:04 Rosibel Spirit - [facility] 2020-07-03 Inpatient HCACL YADY [id number] [facility] 05:40:00 07 [facility] 2020-04-20 Inpatient EM Yane, [facility] ADMI [id number] [facility] 22:15:00 Richy 36 [facility] 2020-04-17 Inpatient UR Haris, [facility] MEDI.01 [id number] [facility] 08:48:00 Oladipo 20 [facility] 2023-02-10 2023-02-10 Orders Rubin-Madhuri 1.2.840.1 [id number] [facility] 00:00:00 00:00:00 Only Ela iniguez 87073.1.1 ity of 3.412.2.7 [place] .3.080090 MD Atkins8 [facility] 2022-12-21 2022-12-21 Office Iker 1.2.840.1 [id number] [place] 09:20:00 09:49:25 Visit Myphuojacky [id number] Joaquina 3.430.2.7 Hospit a .3.388141 jossie Nguyen 2022-12-21 2022-12-21 [facility] [id number] [place] 00:00:00 00:00:[address] 2022-12-21 2022-12-21 [facility] [id number] [place] 00:00:00 00:00:00 LELAUONG 721 Wileyo [facility] 2022-05-29 2022-05-29 Orders Hernandez-Madhuri 1.2.840.1 [id number] Univers 00:00:00 00:00:00 Only Ela iniguez 30513.1.1 ity of 3.412.2.7 [place] .3.009317 .8 [facility] 2022-03-30 2022-03-30 Telephone Lalo, 1.2.840.1 [id number] Univers 00:00:00 00:00:00 August F 33348.1.1 ity of 3.412.2.7 [place] .3.684941 .8 [facility] 2022-02-03 2022-02-03 Outpatient EL HERNANDEZ-MADHURI FOSTER MDA [id number] 11:45:58 11:45:58 ELA INIGUEZ 2022-02-03 2022-02-03 Outpatient JODI RAIN MDA MDA [id number] 11:17:01 11:17:01 LEONORA herrera 2022-02-03 2022-02-03 Outpatient JODI RAIN MDA MDA [id number] 11:16:56 11:16:56 LEONORA herrera 2022-02-03 2022-02-03 Outpatient EL BRIAN FOSTER MDA [id number] 10:21:52 10:21:52 ELA INIGUEZso javier 2022-01-30 2022-01-30 Outpatient JODI DAVILA MDA MDA [id number] 10:01:04 11:45:40 CORONA herrera 2021-12-22 2021-12-22 Laboratory Only, Ang Db Test [facility] 1.2.8 40.114 [id number] [facility] 09:30:00 09:45:00 Only Idalmis, [facility] 350.1.13.10 ity of [place] 4.2.7.2.686 Paul as YOVANNY?BLEA [id number] [address] MEDICAL OFFICE BUILDING 2021-12-22 2021-12-22 Outpatient R IDALMIS [facility] [id number] Univers 09:30:00 09:38:34 KAVON greene o jenifer [facility] 2021-12-12 2021-12-12 Outpatient R RADHA [facility] [id number] Univers 13:20:00 13:58:14 RANIA ity of [facility] 2021-12-12 2021-12-12 Urgent Whitley Germain [facility] 1.2. 840.114 [id number] Univers 13:20:00 13:58:14 Care Alin Guevara [facility] 350.1.13.10 ity of [place] 4.2.7.2.686 Paul as YOVANNY?BLEA [id number] [address] MEDICAL OFFICE BUILDING 2021-05-27 2021-05-27 Telephone BEATRIZ Da Silva 1.2.840.114 [id number] Univers 00:00:00 00:00:00 Shivam LIMA 350.1.13.10 it y of [facility] 4.2.7.2.686 Paul as [id number] [address] 2021-05-26 2021-05-26 Outpatient R IDALMIS [facility] [id number] Univers 15:15:00 16:20:21 KAVON thakkary o jenifer [facility] 2021-05-26 2021-05-26 Laboratory Only, Ang Db Test [facility] 1.2.8 40.114 [id number] Univers 15:15:00 15:30:00 Only Kavon Gresham 350.1.13.10 ity of [place] 4.2.7.2.686 Paul as YOVANNY?BLEA [id number] [address] MEDICAL OFFICE BUILDING 2021-05-19 2021-05-19 Outpatient R IDALMIS [facility] [id number] Univers 18:30:00 18:30:00 KAVON ity o jenifer [facility] 2020-09-03 2020-09-03 Laboratory Only, Adc Test [facility] 1.2.840. 114 [id number] Univers 09:21:28 09:36:28 Only Dion Mcintyre 350.1.13.10 ity of [place] 4.2.7.2.686 [place] [facility] [id number] [facility] [address] Branch 2020-09-03 2020-09-03 Outpatient R [facility] [id number] Univers 09:30:00 09:30:00 ity of [facility] 2020-09-03 2020-09-03 Telephone Stenstadken HENDERSON 1.2.840.114 [id number] Univers 00:00:00 00:00:00 Genny partida 350.1.13.10 ity of [facility] 4.2.7.2.686 Paul as [id number] [facility] 019 Branch 2020-09-03 2020-09-03 Orders Doctor BEATRIZ 1.2.840.114 [id number] 00:00:00 00:00:00 Only Unassigned, JANIE 350.1.13.10 ity of [place] [facility] 4.2.7.2.686 Paul as [id number] [facility] 009 Branch 2020-04-20 2020-04-20 Outpatient ELIE Che REF [id number] [facility] 21:37:00 21:37:[address] [place] [address] 2020-04-17 2020-04-17 Outpatient INDIO Carballo LABO [id number] [facility] 23:25:00 23:25:[address] [place] [address] 2020-02-14 2020-02-14 Outpatient [facility] [id number] Common 08:26:00 08:26:00 t [facility] 2020-02-12 2020-02-12 Outpatient [facility] [id number] Common 08:30:00 08:30:00 t [facility] 2020-01-26 2020-01-26 Outpatient VANESSA SALDANA MDA, MDA [id number] 00:00:00 00:00:00 Angel herrera 2020-01-24 2020-01-24 Outpatient JODI REY MDA MDA [id number] 00:00:00 00:00:00 MAGNUS herrera 2020-01-19 2020-01-19 Outpatient [facility] [id number] Common 08:30:00 08:30:00 t [facility] 2019-12-13 2019-12-13 Outpatient VANESSA SALDANA KRISTIN [facility] [id number] 00:00:00 00:00:00 Angel herrera 2019-12-13 2019-12-13 Outpatient JODI REY KRISTIN FOSTER [id number] 00:00:00 00:00:00 MAGNUS herrera 2018-11-30 2018-11-30 Outpatient [facility] [id number] eClinic 10:40:00 10:40:00 Podiatry [facility] 2018-09-06 2018-09-06 Outpatient [facility] [id number] Common 08:00:00 08:00:00 t [facility] 2018-04-28 2018-04-28 Outpatient [facility] [id number] eClinic 09:00:00 09:00:00 Podiatry Podiatry [facility] 2018-01-17 2018-01-17 Outpatient [facility] [id number] eClinic 11:19:00 11:19:00 [facility] Results Test Description Test Time Test Comments Results Result Comments Source LUPUS ANTICOAGULANT PROFILE 2020-07-06 08:14:00 Test Item Value Reference Range Interpretation Comme nts RVVT PATIENT (test code 45.8 sec () Refe rence Range:<= 47.0 = RVVTPAT) RVVT PATIENT CONFIRM Test not performed () T esting Not IndicatedNot indicated (test code = RVVTPATMC) sec PTT LONG ACTING (test 37.7 sec () A aPTT i s 26.7 seconds following code = PTTLA) heparin neutra lization.This test has not been valida cabrera for monitoringunfra ctionated heparin therapy. aPTT-b ased therapeuticrang es for unfractionated heparin therapy have not beenestablished . Consider ordering Heparin anti-Xa(unfract ionated).Reference Range:18 years and older: 22.9 - 30.2 PTT LONG ACTING MIX Test not performed () Te sting Not IndicatedNot (test code = PTTLAM) sec indicat edThis test was developed and its performance characteristics determined by [facility]. It has not been cleared or approvedby the [place] Food and Drug Administration. PTT LONG ACTING INCUB Test not performed () Testing Not IndicatedNot MIX (test code = sec indicatedTh is test was developed and PTTLAMI) its performance characteristics determined by [facility]. It has not been cleared or approvedby the [place] Food and Drug Administration. HEXAGONAL PHASE 0 sec () This value i s NEGATIVE.This is a PHOSPHOLIPID (test code qual itative assay and is therefore = HEXPHAS) reported asposi tive for lupus anticoagulant o r negative. Thequantitative value is provided as an aid in diagn osis.Reference Range:0 - 11 LUPUS ANTICOAGULANT Comment () The APTT is prolonged. A lupus PANEL INT (test code = antic oagulant is notdetected. LUPPT) Anticoagulant t herapy (vitamin K antagonist,dire ct Xa inhibitor, direct thrombin inhibitor (DTI) orheparin thera py) may prolong the APTT. All antip hospholipidantibodies evaluated are n ormal. As antibody titers mayfluct uate with time, repeat testing may be indicated andideally shou ld be performed in the absence of anticoagulanttherapy. Please contact [facility] if evaluationof the prolonged APTT or further clar ification is needed.Performe d At: [id number] 8 [id number] Fermin Lopez MD RENAL FUNCTION [id number] 08:03:00 Test Item Value Reference Range Interpretation Comments SODIUM (test code = NA) 137 mEq/L 134-147 N POTASSIUM (test code = 3.9 mEq/L 3.4-5.0 N K) CHLORIDE (test code = 106 mEq/L 100-108 N CL) CARBON DIOXIDE (test 27 mEq/l 21-33 N code = CO2) ANION GAP (test code = 8 0-20 N GAP) GLUCOSE (test code = 117 mg/dL 70-110 H GLU) BLOOD UREA NITROGEN 10 mg/dL 7-18 (test code = BUN) GLOMERULAR FILTRATION 104.4 90-95 H Units of measure = RATE (test code = GFR) ml/mi n/1.73 m2 CREATININE (test code = 0.7 mg/dL 0.6-1.3 N CREAT) ALBUMIN (test code = 3.10 g/dL 3.4-5.0 L ALB) CALCIUM (test code = CA) 9.0 mg/dL 8.0-10.5 N PHOSPHOROUS (test code = 3.4 MG/DL 2.5-4.9 N PHOS) COVID 19 Asymptomatic IH [id number] 11:38:00 Test Item Value Reference Range Interpretation Comments COVID 19 Asymptomatic Negative Negative A nega tive result is IH AG (test code = presumpti ve and should COVNONPUIAG) be confirmedwit h an FDA authorized mole cular assay, if neces hortencia forpatient jennifer g[place].A positive result does not rule out co-inf ections withother patho gens.This test detects irina th viable (live) and non-viable,SARS -CoV, and SARS-CoV-2. Cleopatra t performance dep ends on theamount of vi yair (antigen) in th e sample.This cleopatra t has not been FDA cleare d or approved; the t est hasbeen authori zed by FDA under an Em ergency Use Authorizati on(EUA) for use by labo ratories certified under the CLIA thatmeet the requirements to perform moderate, high or waivedcomplexit y tests. COMMENTS: If not done this admission- CT ABD PELVIS W/[id number] 07:12:00 [facility] 1965 Sex: F Name: EMILY ARRINGTON : 1965 Age/S: 55 / F [address] [place] [address] Unit #: [id number] Loc: [place] [address] Phys: Scooter Martin MD Acct: [id number] Dis Date: Status: REG ER PHONE #: [phone] Exam Date: 07/03/2020 0624 FAX #: [phone] Reason: PAIN WITH TRAUMA EXAMS: CPT CODE:[id number] CT ABD PELVIS W/CONT 99205 STUDY: - CT CHEST W/CONTRAST, - CT ABD PELVIS W/CONT 07/03/2020 5:55 AM Ordering Physician: Scooter Martin MD Patient Name: EMILY ARRINGTON MR: [id number] : 1965; Age: 55 years y/o Female Clinical Indication: Generalized chest and abdominal pain related to trauma. Comparison: None TECHNIQUE: Multiple contiguous postcontrast transaxial CT images were obtained f rom the base of the neck through the symphysis pubis. Sagittal and coronal reformatted images were prepared. CT imaging performed at this location utilizes radiation dose optimization techniques which include one or more of the following: -Automated exposure control -Adjustment of the mA and/or kV according to patient size -Use of iterative reconstruction technique IV CONTRAST: [id number] Radiation Dose DLP: 1974.50 mGy-cm FINDINGS: CT CHEST WITH CONTRAST: LUNGS: Well inflated lungs associated with a moderately elevated right hemidiaphragm and mild bilateral basilar subsegmental atelectasis and scarring. No consolidation, pleural effusion, or pneumothorax. AIRWAY: Clear central tracheobronchial tree. HEART: Mild cardiomegaly. 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 No aneurysm or injury is appreciated. PULMONARY ARTERIES: Prominent central pulmonary arteries consistent with pulmonary arterial hypertension without central pulmonary embolus. PAGE 1 Signed Report (CONTINUED) Name: EMILY ARRINGTON : 1965 Age/S: 55 / F [address] [place] [address] Unit #: [id number] Loc: [place] [address] Phys: Scooter Martin MD Acct: [id number] Dis Date: Status: REG ER PHONE #: [phone] Exam Date: 07/03/2020623 FAX #: [phone] Reason: PAIN WITH TRAUMA EXAMS: CPT CODE: [id number] CT ABD PELVIS W/CONT 78142 <Continued> MEDIASTINUM AND YRN: No mediastinal lymphadenopathy or mass. Heterogeneous thyroid with indeterminate low-attenuation lesions measuring up to 8 mm. SOFT TISSUES: Mild indurationand stranding seen in the soft tissues in the left anterior chest wall consistent with soft tissue injury. OSSEOUS STRUCTURES: Mild to moderate thoracic spondylosis and facet arthrosis greatest in the mid and lower thoracic spine. Acute mildly displaced obliquely oriented fracture involving the T10 vertebral body extending into the posterior aspect of the T10-T11 intervertebral disc space or posterior margin of the spinal canal. Multiple mild 10% at maximum compression fractures in the remaining midand lower thoracic spine are of indeterminate age, but likely old most notably at T6, T7, T8, T9. CTABDOMEN WITH CONTRAST: BOWEL GAS: Nonobstructed bowel gas pattern. Mild colonic diverticulosis. APPENDIX: Normal appendix without inflammatory change. STOMACH: Under distended thick-walled stomach. PERITONEUM AND MESENTERY: Free Air: No evidence of pneumoperitoneum. Free Fluid: No evidence of significant free fluid, loculated fluid, peripherally enhancing abscess, or hemorrhage. Mesenteric and peritoneal fat: Normal without focal lesion or inflammation. LYMPH NODES: No lymphadenopathy or mass. VASCULAR: Abdominal Aorta: Normal caliber abdominal aorta without aneurysm or dissection. IVC: Normal. ABDOMINAL ORGANS: Liver: Normal size and morphology without discrete lesion. PAGE 2 Signed Report (BOB NUED) Name: EMILY ARRINGTON [facility] : 1965 Age/S: 55 / F [address] [place], [place] [address]vd Unit #:[id number] Loc: [place] [address] Phys: Scooter Martin MD Acct: [id number] Dis Date: Status: REG ER PHONE #: [phone] Exam Date: 07/03/2020623 FAX #: [phone] Reason: PAIN WITH TRAUMA EXAMS: CPT CODE: [id number] CT ABD PELVIS W/CONT 76272 <Continued> Gallbladder: Postoperative change of cholecystectomy. Biliary Tree: Mildly to moderately dilated intrahepatic and extrahepatic bile ducts likely physiological in nature status post cholecystectomy. Kidneys: Normal size and morphology without discrete lesion or hydronephrosis. Adrenal Glands: Normal size and morphology without discrete lesion. Pancreas: Normal size and morphology without discrete lesion. Spleen: Normal size spleenassociated with an indeterminate low- attenuation lesion measuring 5 mm inferiorly. PELVIC ORGANS: Urinary bladder: Normal nonenhanced appropriate for degree of distention. Reproductive organs: Normal uterus and adnexa. SOFT TISSUES: Focal soft tissue density in the subcutaneous fat in the right mid abdomen likely represent medication injection. Moderate size umbilical hernia measuring 10.8 x 9.4 x 10.3 cm containing omental fat and a portion of the transverse colon. Nonspecific small to mildly enlarged bilateral inguinal lymph nodes. Mild hazy induration is otherwise seen in the subcutaneous fat across the anterior lower abdominal wall fat. OSSEOUS STRUCTURES: Mild to moderate lumbar spondylosis and facet arthrosis. Mild loss of vertebral body height multiple lumbar vertebral body levels appears to be related to degenerative change. No definite acute fracture or dislocation is appreciated. No acute fracture or dislocation within the pelvis or hips. IMPRESSION: PAGE 3 Signed Report (CONTINUED) Name: EMILY ARRINGTON [facility] : 1965 Age/S: 55 / F [address] [place] [address] Blvd Unit #: [id number] Loc: [place] [address] Phys: Scooter Martin MD Acct: [id number] Dis Date: Status: REG ER PHONE #: [phone] Exam Date: 07/03/2020 06 FAX #: [phone] Reason: PAIN WITH TRAUMA EXAMS: CPT CODE: [id number] CT ABD PELVIS W/CONT 01827 <Continued> Acute mildly displaced obliquely oriented fracture involving the T10 vertebral body extending into the posterior aspect of the T10-T11 inte rvertebral disc space or posterior margin of the spinal canal. Multiple mild 10% at maximum compression fractures in the remaining mid and lower thoracic spine are of indeterminate age, but likely old most notably at T6, T7, T8, T9. No acute internal injury in the chest, abdomen, or pelvis. Mild cardiomegaly. Suspected pulmonary arterial hypertension without central pulmonary embolus. Heterogeneousthyroid with subcentimeter indeterminate low-attenuation lesions. No follow-up required. Postoperative change of cholecystectomy with mildly to moderately dilated intrahepatic and extrahepatic bile ducts likely physiological in nature to reservoir effect. Clinical correlation is required. Indeterminate low-attenuation splenic lesion measuring 5 mm cannot be better described. Moderate size umbilical hernia containing omental fat and a portion of the transverse colon. Mild soft tissue injury involving the anterior lower abdominal wall fat and the left upper chest wall fat. Critical findings were communicated to Dr. Coburn on 07/03/2020 7:07 AM. SL: TPAINTER-H at 0712 Reported and signed by: Jorden Palmer M.D. PAGE 4 Signed Report (CONTINUED) Name: EMILY ARRINGTON [facility] : 1965 Age/S: 55 / F [address] [place] [address] Unit #: [id number] Loc: [place] [address] Phys: Scooter Martin MD Acct: [id number] Dis Date: Status: REG ER PHONE #: [phone] Exam Date: 07/03/2020623 FAX #: [phone] Reason: PAIN WITH TRAUMA EXAMS: CPT CODE: [id number] CT ABD PELVIS W/CONT 40597 <Continued> CC: Rosibel Mcdonald; Scooter Martin MD Technologist:Dago Chen, RT(R) CTDI: DLP: Trnscb Date/Time: 07/03/2020 (711) [email or web address] Orig Print D/T: S: 07/03/2020 (07) PAGE 5 Signed Report- CT CHEST W/[id number] 07[facility]12[facility]00 [facility] 1965 Sex: F Name: EMILY ARRINGTON : 1965 Age/S: 55 / F [address] [facility] Unit #: [id number] Loc: [place] [address] Phys: Scooter Martin MD Acct: [id number] Dis Date: Status: REG ER PHONE #: [phone] Exam Date: 07/03/2020 0624 FAX #: [phone] Reason: PAIN WITH TRAUMA EXAMS: CPT CODE:[id number] CT CHEST W/CONTRAST 65999 STUDY: - CT CHEST W/CONTRAST, - CT ABD PELVIS W/CONT 07/03/2020 5:55 AM Ordering Physician: Scooter Martin MD Patient Name: EMILY ARRINGTON MR: [id number] : 1965; Age: 55 years y/o Female Clinical Indication: Generalized chest and abdominal pain related to trauma. Comparison: None TECHNIQUE: Multiple contiguous postcontrast transaxial CT images were obtained from the base of the neck through the symphysis pubis. Sagittal and coronal reformatted images were prepared. CT imaging performed at this location utilizes radiation dose optimization techniques which include one or more of the following: -Automated exposure control -Adjustment of the mA and/or kV according to patient size -Use of iterative reconstruction technique IV CONTRAST: [id number] Radiation Dose DLP: 1974.50 mGy-cm FINDINGS: CT CHEST WITH CONTRAST: LUNGS: Well inflated lungs associated with a moderately elevated right hemidiaphragm and mild bilateral basilar subsegmental atelectasisand scarring. No consolidation, pleural effusion, or pneumothorax. AIRWAY: Clear central tracheobronchial tree. HEART: Mild cardiomegaly. 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 No aneurysm or injury is appreciated. PULMONARY ARTERIES: Prominent central pulmonary arteries consistent with pulmonary arterial hypertension without central pulmonary embolus. PAGE 1 Signed Report (CONTINUED) Name: EMILY ARRINGTON : 1965 Age/S: 55 / F [address] [facility] Unit #: [id number] Loc: [place] [address] Phys: Scooter Martin MD Acct: [id number] Dis Date: Status: REG ER PHONE #: [phone] Exam Date: 07/03/2020623 FAX #: [phone] Reason: PAIN WITH TRAUMA EXAMS: CPT CODE: [id number] CT CHEST W/CONTRAST 03001 <Continued> MEDIASTINUM AND YRN: No mediastinal lymphadenopathy or mass. Heterogeneous thyroid with indeterminate low-attenuation lesions measuring up to 8 mm. SOFT TISSUES: Mild induration and stranding seen in the soft tissues in the left anterior chest wall consistent with soft tissue injury. OSSEOUS STRUCTURES: Mild to moderate thoracic spondylosis and facet arthrosis greatest in the mid and lower thoracic spine. Acute mildly displaced obliquely oriented fracture involving the T10 vertebral body extending into the posterior aspect of the T10-T11 intervertebral disc space or posterior margin of the spinal canal. Multiple mild 10% at maximum compression fractures in the remaining mid and lower thoracic spine are of indeterminate age, but likely old most notably at T6, T7, T8, T9. CT ABDOMEN WITH CONTRAST: BOWEL GAS: Nonobstructed bowel gas pattern. Mild colonic diverticulosis. APPENDIX: Normal appendix without inflammatory change. STOMACH: Under distended thick-walled stomach. PERITONEUM AND MESENTERY: Free Air: No evidence of pneumoperitoneum. Free Fluid: No evidence of significant free fluid, loculated fluid, peripherally enhancing abscess, or hemorrhage. Mesenteric and peritoneal fat: Normal without focal lesion or inflammation. LYMPH NODES: No lymphadenopathy or mass. VASCULAR: Abdominal Aorta: Normal caliber abdominal aorta without aneurysm or dissection. IVC: Normal. ABDOMINAL ORGANS: Liver: Normal size and morphology without discrete lesion. PAGE 2 Signed Report (CONTINUED) Name: EMILY ARRINGTON [facility] : 1965 Age/S: 55 / F [address] [place] [address] Blvd Unit #: [id number] Loc: [place] [address] Phys: Scooter Martin MD Acct: [id number] Dis Date: Status: REG ER PHONE #: [phone] Exam Date: 07/03/2020623 FAX #: [phone] Reason: PAIN WITH TRAUMA EXAMS: CPT CODE: [id number] CT CHEST W/CONTRAST 26486 <Continued> Gallbladder: Postoperative change of cholecystectomy. Biliary Tree: Mildly to moderately dilated intrahepatic and extrahepatic bile ducts likely physiological in nature status post cholecystectomy. Kidneys: Normal size and morphology wit hout discrete lesion or hydronephrosis. Adrenal Glands: Normal size and morphology without discretelesion. Pancreas: Normal size and morphology without discrete lesion. Spleen: Normal size spleen associated with an indeterminate low-attenuation lesion measuring 5 mm inferiorly. PELVIC ORGANS: Urinary bladder: Normal nonenhanced appropriate for degree of distention. Reproductive organs: Normal uterus and adnexa. SOFT TISSUES: Focal soft tissue density in the subcutaneous fat in the right mid abdomen likely represent medication injection. Moderate size umbilical hernia measuring 10.8 x 9.4 x 10.3 cm containing omental fat and a portion of the transverse colon. Nonspecific small to mildly enlarged bilateral inguinal lymph nodes. Mild hazy induration is otherwise seen in the subcutaneous fat across the anterior lower abdominal wall fat. OSSEOUS STRUCTURES: Mild to moderate lumbar spondylosis and facet arthrosis. Mild loss of vertebral body height multiple lumbar vertebral body levels appears to be related to degenerative change. No definite acute fracture or dislocation is appreciated. No acutefracture or dislocation within the pelvis or hips. IMPRESSION: PAGE 3 Signed Report (CONTINUED) Name: EMILY ARRINGTON [facility] : 1965 Age/S: 55 / F [address] [place] [address] Blvd Unit #: [id number] Loc: [place] [address] Phys: Scooter Martin MD Acct: [id number] Dis Date: Status: REG ER PHONE #: [phone] Exam Date: 07/03/2020623 FAX #: [phone] Reason: PAIN WITH TRAUMA EXAMS: CPT CODE: [id number] CT CHEST W/CONTRAST 24203 <Continued> Acute mildly displaced obliquely oriented fracture involving the T10 vertebral body extending into the posterior aspect of the T10-T11 intervertebral disc space or posterior margin of the spinal canal. Multiple mild 10% at maximum compression fractures in the remaining mid and lower thoracic spine are of indeterminate age, but likely old most notably at T6, T7, T8, T9. No acute internal injury in the chest, abdomen, or pelvis. Mild cardiomegaly. Suspected pulmonary arterial hypertension without central pulmonary embolus. Heterogeneous thyroidwith subcentimeter indeterminate low-attenuation lesions. No follow-up required. Postoperative change of cholecystectomy with mildly to moderately dilated intrahepatic and extrahepatic bile ducts likely physiological in nature to reservoir effect. Clinical correlation is required. Indeterminate low-attenuation splenic lesion measuring 5 mm cannot be better described. Moderate size umbilical hernia containing omental fat and a portion of the transverse colon. Mild soft tissue injury involving the anterior lower abdominal wall fat and the left upper chest wall fat. Critical findings were communicated to Dr. Coburn on 07/03/2020 7:07 AM. SL: TPAINTER-H at 0712 Reported and signed by: Jorden Palmer M.D. PAGE 4 Signed Report (CONTINUED) Name: EMILY ARRINGTON [facility] : 1965 Age/S: 55 / F [address] [place] [address] Unit #: [id number] Loc: [place] [address] Phys: Scooter Martin MD Acct: [id number] Dis Date: Status: REG ER PHONE #: [phone] Exam Date: 07/03/2020623 FAX #: [phone] Reason: PAIN WITH TRAUMA EXAMS: CPT CODE: [id number] CT CHEST W/CONTRAST 95819 <Continued> CC: Rosibel Mcdonald; Scooter Martin MD Technologist:Dago Chen, RT(R) CTDI: DLP: Trnscb Date/Time: 07/03/2020 (711) [email or web address] Orig Print D/T: S: 07/03/2020 (714) PAGE 5 Signed Report- CT C-SPINE W/O [id number] 06:45:00 [facility] 1965 Sex: F Name: EMILY ARRINGTON : 1965 Age/S: 55 / F [address] [facility] Unit #: [id number] Loc: [place] [address] Phys: Scooter Martin MD Acct: [id number] Dis Date: Status: REG ER PHONE #: [phone] Exam Date: 07/03/2020623 FAX #: [phone] Reason: NECK PAIN EXAMS: CPT CODE: [id number] CT C-SPINE W/O CONT 04657 STUDY: - CT C-SPINE W/O CONT 07/03/2020 5:55 AM Ordering Physician: Scooter Martin MD Patient Name: EMILY ARRINGTON MR: [id number] : 1965; Age: 55 years y/o Female Clinical Indication: Cervical pain related to trauma. Comparison: None Technique: Multiple contiguous noncontrast CT images were obtained through the cervical spine. Coronal and sagittal reconstructions were prepared. CT imaging performed at this location utilizes radiation dose optimization techniques which include one or more of the following: -Automated exposure control -Adjustment of the mA and/or kV according to patient size -Use of iterative reconstruction technique CT Radiation Dose DLP: 295.66 mGy-cm FINDINGS: ALIGNMENT AND GENERAL ASSESSMENT: Mild to moderate cervical spondylosis and facet arthrosis greatest in the mid and lower cervical spine. No acute fracture, dislocation, or suspicious focal osseous lesion. No acute fracture or dislocation. DISK SPACES: Multilevel mild to moderate spinal canal narrowing and mild to moderate neural foraminal narrowing greatest in the mid and lower cervical spine. PREVERTEBRAL SOFT TISSUES: The prevertebral soft tissue thickness is normal. Mildly heterogeneous thyroid. LUNG APICES: The visualized portions of the lung apices are clear. IMPRESSION: PAGE1 Signed Report (CONTINUED) Name: EMILY ARRINGTON : 1965 Age/S: 55 / F [address] [place] [address] Unit #: [id number] Loc: [place] [address] Phys: Scooter Martin MD Acct: [id number] Date: Status: REG ER PHONE #: [phone] Exam Date: 07/03/2020623 FAX #: [phone] Reason: NECK PAIN EXAMS: CPT CODE: [id number] CT C-SPINE W/O CONT 11151 <Continued> Mild to moderate cervical spondylosis and facet arthrosis. No acute fracture or dislocation. SL: BERTHAINTER-H at 0645 Reported and signed by: Bre Young CC: Rosibel Mcdonald; Scooter Martin MD Technologist:Dago Chen, RT(R) CTDI: DLP: Trnscb Date/Time: 07/03/2020 (0645) [email or web address] Orig Print D/T: S: 07/03/2020 (48) PAGE 2 Signed Report- CT HEAD/BRAIN W/O [id number] 06:40[facility]00[facility] 1965 Sex: F Name: EMILY ARRINGTON [facility] : 1965 Age/S: 55 / F [address] [place] [address] Unit #: [id number] Loc: [place] [address] Phys: Scooter Martin MD Acct: [id number] Dis Date: Status: REG ER PHONE #: [phone] Exam Date: 07/03/2020623 FAX #: [phone] Reason: PAIN WITH TRAUMA EXAMS: CPT CODE:[id number] CT HEAD/BRAIN W/O CONT 33808 STUDY: - CT HEAD/BRAIN W/O CONT 07/03/2020 5:55 AM Ordering Phys ician: Scooter Martin MD Patient Name: EMILY ARRINGTON MR: [id number] : 1965; Age: 55 years y/o Female Clinical Indication: Headache related to trauma. Comparison: None TECHNIQUE: Multiple contiguous transaxial noncontrast CT images were obtained through the head. Coronal and sagittal reformatted images were prepared. CT imaging performed at this location utilizes radiation dose optimization techniques which include one or more of the following: - Automated exposure control -Adjustment of the mA and/or kV according to patient size -Use of iterative reconstruction technique CT Radiation Dose DLP: 609.43 mGy-cm FINDINGS: BRAIN PARENCHYMA: Mildly limited examination secondary to patient positioning. 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 No evidence of acute intracranial hemorrhage, mass lesion, mass effect, midline shift, or extra-axial fluid collection. VENTR ICLES: The lateral ventricles, third ventricle, fourth ventricle, and basilar cisterns are appropriate for degree of atrophy present. PARANASAL SINUSES: Minimal mucoperiosteal thickening in the left maxillary sinus.. The visualized portions of the remaining paranasal sinuses are clear. MASTOIDS: Clear. PAGE 1 Signed Report (CONTINUED) Name: EMILY ARRINGTON : 1965 Age/S: 55 / F [address] [place], [place] [address]vd Unit #: [id number] Loc: [place] [address] Phys: Scooter Martin MD Acct: [id number] Dis Date: Status: REG ER PHONE #: [phone] Exam Date: 07/03/2020 0624 FAX #: [phone] Reason: PAIN WITH TRAUMA EXAMS: CPT CODE: [id number] CT HEAD/BRAIN W/O CONT 99407 <Continued>ORBITS: The visualized portions of the orbits are normal. SOFT TISSUES: No significant abnormality. SKULL: No acute fracture or suspicious osseous lesion. 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 No acute intracranial abnormality. Multiple chronic sinusitis. SL: TPAINTER-H at 0640 Reported and signed by: Jorden Palmer M.D. CC: Rosibel Mcdonald; Scooter Martin MD Technologis t:Dago Chen, RT(R) CTDI: DLP: Trnscb Date/Time: 07/03/2020 (639) [email or web address] Orig Print D/T: S: 07/03/2020 (0615) PAGE 2 Signed ReportBASIC METABOLIC [id number] 06:30:00 Test Item Value Reference Range Interpretation Comments SODIUM (test code = NA) 139 mEq/L 134-147 N POTASSIUM (test code = 4.6 mEq/L 3.4-5.0 N K) CHLORIDE (test code = 107 mEq/L 100-108 N CL) CARBON DIOXIDE (test 26 mEq/l 21-33 N code = CO2) ANION GAP (test code = 11 0-20 N GAP) GLUCOSE (test code = 141 mg/dL 70-110 H GLU) BLOOD UREA NITROGEN 21 mg/dL 7-18 H (test code = BUN) GLOMERULAR FILTRATION 78.1 90-95 L Units of measure = RATE (test code = GFR) ml/mi n/1.73 m2 CREATININE (test code = 0.9 mg/dL 0.6-1.3 N CREAT) CALCIUM (test code = 9.9 mg/dL 8.0-10.5 N CA) HEPATIC FUNCTION [id number] 06:30:00 Test Item Value Reference Range Interpretation Comments TOTAL PROTEIN (test code = PROT) 7.3 g/dL 6.4-8.2 N ALBUMIN (test code = ALB) 3.50 g/dL 3.4-5.0 N BILIRUBIN TOTAL (test code = BILT) 0.70 mg/dL 0.0-1.0 N BILIRUBIN DIRECT (test code = 0.20 MG/DL 0.0-0.30 N BILD) BILIRUBIN INDIRECT (test code = 0.50 MG/DL BILIND) SGOT/AST (test code = AST) 55 IUnit/L 15-37 H SGPT/ALT (test code = ALT) 46 IUnit/L 30-65 N ALKALINE PHOSPHATASE TOTAL (test 86 IUnit/L 20-125 N code = ALKP) [id number] 06:30:00 Test Item Value Reference Range Interpretation Comments TROPONIN-I < 0.006 ng/mL 0.000-0.045 N Negative: <= 0 .045 Positive: (test code = >= 0.046 Correl ation with TROPI) serial results, other cardiac markers andclinical findings is nec essary to determine the clinicalsignifi cance of this result. Results using different metho dologies should not be c omparedto one another as dalton titative results may jolly y by method. [id number] 06:30:00 Test Item Value Reference Range Interpretation Comments ALCOHOL (test code 3.2 mg/dL <10 N Ethyl Alc ohol = ALC) Interpretation: 100 mg/dL - Legally Intox icated 300-400 mg/dL - Severely Intoxicated &gt ;400 mg/dL - Potentially L ethalThe pharmacological response to blood alcoho l levels mayvary from in dividual to individual. Sig ns of intoxicationcan be observed at lev els of 50-100 mg/dL. R esults are for Medical pur poses only, and not for Leg al orEmployment ev aluation purposes. PROTHROMBIN [id number] 06:18:00 Test Item Value Reference Range Interpretation Comments PROTHROMBIN TIME 12.7 SECONDS 9.3-12.9 N PATIENT (test code = PTP) INTERNATIONAL NORMAL 1.2 0.8-1.2 N TARGET INR BY RATIO (test code = INDICATIO N Indication INR) INR1. Prophylax is of venous thrombos is 2.0 - 3.0 (orthoped ic surgery), Proph ylaxis of venous throm bosis (other than hig h-risk surgery), Treat ment of Deep Vein Thrombosis/Pulm onary Embolism, Preve ntion of systemic emb olism - Tissue heart va lves, Acute Myocardia l Infarction (to prevent systemic emboli sm), Valvular heart disease, Atrial Fibrillation, Bileaflet mecha nical valve in aortic position.2. Mec hanical prosthetic valv es (high risk), 2. 5 - 3.5 Presence of Lup us Anticoagulant o r Antiphospholipi d Antibodies, Pre vention of systemic emb olism - Acute Myocardia l Infarction (to prevent recurrent infar ct). THROMBOPLASTIN TIME [id number] 06:18:00 Test Item Value Reference Range Interpretation Comments THROMBOPLASTIN TIME 32.2 Seconds 25.0-39.5 N Therape utic Range: PARTIAL (test code = 50.4 - 88.3 Seconds PTT) Effective 09/13/2018 PROTHROMBIN [id number] 06:17:00 Test Item Value Reference Range Interpretation Comments PROTHROMBIN TIME 12.7 SECONDS 9.3-12.9 N PATIENT (test code = PTP) INTERNATIONAL NORMAL 1.2 0.8-1.2 N TARGET INR BY RATIO (test code = INDICATIO N Indication INR) INR1. Prophylax is of venous thrombos is 2.0 - 3.0 (orthoped ic surgery), Proph ylaxis of venous throm bosis (other than hig h-risk surgery), Treat ment of Deep Vein Thrombosis/Pulm onary Embolism, Preve ntion of systemic emb olism - Tissue heart va lves, Acute Myocardia l Infarction (to prevent systemic emboli sm), Valvular heart disease, Atrial Fibrillation, Bileaflet mecha nical valve in aortic position.2. Mec hanical prosthetic valv es (high risk), 2. 5 - 3.5 Presence of Lup us Anticoagulant o r Antiphospholipi d Antibodies, Pre vention of systemic emb olism - Acute Myocardia l Infarction (to prevent recurrent infar ct). THROMBOPLASTIN TIME [id number] 06:17:00 Test Item Value Reference Range Interpretation Comments THROMBOPLASTIN TIME PARTIAL (test Seconds 25.0-39.5 code = PTT) - XR PELVIS 1/2 [id number] 06:14:00 [facility] : 1965 Sex: F FAX: Rosibel Samuel MD [phone] [place]: St: [facility] FAX: Scooter Aguila MD [phone] Name: EMILY ARRINGTON [facility] [place] : 1965 Age/S: 55/F [address] [place] [address] Unit #: [id number] Loc: [place] [address] Phys: Scooter Martin MD Acct: [id number] Dis Date: Status: REG ER PHONE #: [phone] Exam Date: 07/03/2020 06 FAX #: [phone] Reason: PELVIC PAIN EXAMS: CPT CODE: [id number] XR PELVIS 1/2VIEWS 12635 Study: - XR PELVIS 1/2 VIEWS 07/03/2020 5:55 AM Patient Name: EMILY ARRINGTON MR: [id number] : 1965; Age: 55 years y/o Female Ordering Physician: Scooter Martin MD Clinical Indication:Pelvic pain related to trauma. Comparison: None PELVIS, 1 view: IMPRESSION: Mildly limited examination secondary to underpenetration greatest in the superior half of the pelvis. No acute fracture or dislocation is appreciated given limitations. 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 Moderatelumbosacral spondylosis and facet arthrosis. Normal soft tissues. SL: TPAINTER-H at 0614 Reported and signed by: Jorden Palmer M.D. CC: Rosibel Mcdonald; Scooter Martin MD Technologist: Radha Washington RT(R) Trnscrd Date/Time/By: 07/03/2020 (613) : By: [email or web address] Orig Print D/T: S: 07/03/2020 (0617) PAGE 1 Signed Report- XR CHEST 1 [id number] 06:12:00 [facility] 1965 Sex: F FAX: Rosibel Dozier MD [phone] [place]: St: REG FAX: Scooter Aguila MD [phone] Name: EMILY ARRINGTON [facility] [place] : 1965 Age/S: 55/F [address] [place] [address] Unit #: [id number] Loc: [place] [address] Phys: Scooter Martin MD Acct: [id number] Dis Date: Status: REG ER PHONE #: [phone] Exam Date: 07/03/2020 0600 FAX #: [phone] Reason: CHEST PAIN EXAMS: CPT CODE: [id number] XR CHEST 1 V 82011 Study: - XR CHEST 1 V 07/03/2020 5:55 AM Patient Name: EMILY ARRINGTON MR: [id number] : 1965; Age: 55 years y/o Female Ordering Physician: Scooter Martin MD Clinical Indication: Chest pain related to trauma. Comparison: None FINDINGS LUNGS: Mildly hypoinflated and underpenetrated lungs associated with mild central pulmonary vascular congestion, a mildly elevated right hemidiaphragm, and ill-defined left lower lobe opacity and right perihilar opacity suggesting artifact, subsegmental atelectasis, or pneumonia. Question small left pleural effusion. No pneumothorax. HEART AND MEDIASTINUM: Mild cardiomegaly. LINES: None. OSSEOUS STRUCTURES: No fracture, dislocation, or suspicious focal osseous lesion. OTHER: None. IMPRESSION: Mildly hypoinflated and underpenetrated lungs associated with mild central pulmonary vascular congestion, a mildly elevated right hemidiaphragm, and ill-defined left lower lobe opacity and right perihilar opacity suggesting artifact, subsegmental atelectasis, or pneumonia. Question small left pleural effusion. Mild cardiomegaly. SL: TPAINTER-H PAGE 1 Signed Report (CONTINUED) FAX: Rosibel Samuel MD [phone] [place]: St: REG FAX: Scooter Aguila MD [phone] Name: EMILY ARRINGTON [facility] : 1965 Age/S: 55/F [address] [place] [address] Unit #: [id number] Loc: [place] [address] Phys: Scooter Martin MD Acct: [id number] Dis Date: Status: REG ER PHONE #: [phone] Exam Date: 07/03/2020 0600 FAX #: [phone] Reason: CHEST PAIN EXAMS: CPT CODE: [id number] XR CHEST 1 V 67623 <Continued> at 0612 Reported and signed by: Jorden Palmer M.D. CC: Rosibel Mcdonald; Scooter Martin MD Technologist: RT Hector(R) Trnscrd Date/Time/By: 07/03/2020 (611) : By: [email or web address] Orig Print D/T: S: 07/03/2020 (0615) PAGE 2 Signed ReportCBC W/AUTO DIFF 2020-07-03 06:10:00 Test Item Value Reference Range Interpretation Comments WHITE BLOOD CELL (test code = 7.1 x10 3/uL 4.5-11.0 N WBC) RED BLOOD CELL (test code = 4.88 x10 6/uL 3.54-5.02 N RBC) HEMOGLOBIN (test code = HGB) 13.6 g/dL 11.0-15.0 N HEMATOCRIT (test code = HCT) 44.2 % 33.0-45.0 N MEAN CELL VOLUME (test code = 90.6 fL 81.0-99.0 N MCV) MEAN CELL HGB (test code = MCH) 27.9 pg 27.0-33.0 N MEAN CELL HGB CONCETRATION 30.8 g/dL 33.0-37.0 L (test code = MCHC) RED CELL DISTRIBUTION WIDTH CV 15.0 % 11.5-14.5 H (test code = RDW) RED CELL DISTRIBUTION WIDTH SD 50.6 fL 37.0-54.0 N (test code = RDW-SD) PLATELET COUNT (test code = 299 x10 3/uL 150-400 N PLT) MEAN PLATELET VOLUME (test code 10.0 fL 7.0-9.0 H = MPV) NEUTROPHIL % (test code = NT%) 53.6 % 56.0-77.0 L IMMATURE GRANULOCYTE % (test 1.1 % 0.0-2.0 N code = IG%) LYMPHOCYTE % (test code = LY%) 38.0 % 14.0-32.0 H MONOCYTE % (test code = MO%) 4.8 % 4.8-9.0 N EOSINOPHIL % (test code = EO%) 2.1 % 0.3-3.7 N BASOPHIL % (test code = BA%) 0.4 % 0.0-2.0 N NUCLEATED RBC % (test code = 0.0 % 0-0 N NRBC%) NEUTROPHIL # (test code = NT#) 3.78 x10 3/uL 2.0-7.6 N IMMATURE GRANULOCYTE # (test 0.08 x10 3/uL 0.00-0.03 H code = IG#) LYMPHOCYTE # (test code = LY#) 2.68 x10 3/uL 1.0-3.8 N MONOCYTE # (test code = MO#) 0.34 x10 3/uL 0.1-0.8 N EOSINOPHIL # (test code = EO#) 0.15 x10 3/uL 0.0-0.2 N BASOPHIL # (test code = BA#) 0.03 x10 3/uL 0.0-0.2 N NUCLEATED RBC # (test code = 0.00 x10 3/uL 0.0-0.1 N NRBC#) MANUAL DIFF REQUIRED (test code NO = MDIFF) CBC W/AUTO [id number] 06:09:00 Test Item Value Reference Range Interpretation Comments WHITE BLOOD CELL (test code = x10 3/uL 4.5-11.0 WBC) RED BLOOD CELL (test code = RBC) x10 6/uL 3.54-5.02 HEMOGLOBIN (test code = HGB) 13.6 g/dL 11.0-15.0 N HEMATOCRIT (test code = HCT) 44.2 % 33.0-45.0 N MEAN CELL VOLUME (test code = fL 81.0-99.0 MCV) MEAN CELL HGB (test code = MCH) pg 27.0-33.0 MEAN CELL HGB CONCETRATION (test g/dL 33.0-37.0 code = MCHC) RED CELL DISTRIBUTION WIDTH CV % 11.5-14.5 (test code = RDW) PLATELET COUNT (test code = PLT) 299 x10 3/uL 150-400 N NEUTROPHIL % (test code = NT%) % 56.0-77.0 LYMPHOCYTE % (test code = LY%) % 14.0-32.0 NEUTROPHIL # (test code = NT#) x10 3/uL 2.0-7.6 LYMPHOCYTE # (test code = LY#) x10 3/uL 1.0-3.8 MANUAL DIFF REQUIRED (test code = MDIFF) LUPUS ANTICOAGULANT [id number] 18:08:00 Test Item Value Reference Interpretation Comments Range RVVT PATIENT (test 45.8 sec () Reference Range:<= 47.0 code = RVVTPAT) RVVT PATIENT sec () Testing Not Ind icatedNot CONFIRM (test code indicated = RVVTPATMC) PTT LONG ACTING 37.7 sec () A aPTT is 26.7 seconds following (test code = heparin neutral ization.This PTTLA) test has not be en validated for monitoringu nfractionated heparin therapy . aPTT-based therapeuticrang es for unfractionated heparin therapy have not beenes tablished. Consider orderi ng Heparin anti-Xa(unfract ionated).Refere nce Range:18 ye ars and older: 22.9 - 30.2 PTT LONG ACTING sec () Testing Not IndicatedNot MIX (test code = indicatedTh is test was PTTLAM) developed and i ts performance characteristics determined by [facility]. It has not been cleared or appr ovedby the US Food and Drug A dministration. PTT LONG ACTING sec () Testing Not IndicatedNot INCUB MIX (test indicatedThi s test was code = PTTLAMI) developed an d its performance characteristics determined by [facility]. It has not been cleared or appr ovedby the US Food and Drug A dministration. HEXAGONAL PHASE 0 sec () This value i s NEGATIVE.This is PHOSPHOLIPID (test a qualita tive assay and is code = HEXPHAS) therefore re ported aspositive for lupus antic oagulant or negative. Thequ antitative value is provid ed as an aid in diagnosis.Refer ence Range:0 - 11 LUPUS Comment () The APTT is pro longed. A lupus ANTICOAGULANT anticoagulant is notdetected. PANEL INT (test Anticoagulan t therapy (vitamin code = LUPPT) K antagonist,d irect Xa inhibitor, dire ct thrombin inhibitor (DTI) orheparin therapy) may pr olong the APTT. All antiphospho lipidantibodies evaluated are n ormal. As antibody titers mayfluctuate with time, repe at testing may be indicated an dideally should be performed in the absence of anticoagulantth erapy. Please contact [employer] [facility] if evaluationof the prolonged APTT or further clarification is needed.Perfo rmed At: [facility] [id number] [facility] [place], [place] [id number] Lopez MD Ph:[phone] ANTI PHOSPHOLIPID [id number] 19:41:00 Test Item Value Reference Interpretation Comments Range RVVT PATIENT 45.9 sec () Reference Range :<= 47.0 (test code = RVVTPAT) RVVT PATIENT Test not CONFIRM (test performed code = RVVTPATMC) RVVT RATIO (test Test not () Testing Not IndicatedNot code = RVVTRAT) performed indicated ratio PTT LONG ACTING 31.7 sec () A This test bey s not been (test code = validated for PTTLA) monitoringunfra ctionated heparin therapy . aPTT-based therapeuticrang es for unfractionated heparin therapy have no t beenestablished . Consider ordering Hepari n anti-Xa(unfract ionated).Refe rence Range:18 years and older: 22.9 - 3 0.2 PTT LONG ACTING Test not () Testing Not IndicatedNot MIX (test code = performed sec indicatedT his test was PTTLAM) developed and i ts performance characteristics determined by [facility]. It has not been cleared or appr ovedby the [place] Food and Drug Administration. PTT LONG ACTING Test not () Testing Not IndicatedNot INCUB MIX (test performed sec indicatedTh is test was code = PTTLAMI) developed an d its performance characteristics determined by [facility]. It has not been cleared or appr ovedby the US Food and Drug Administration. HEXAGONAL PHASE 1 sec () This value i s NEGATIVE.This PHOSPHOLIPID is a qualitativ e assay and (test code = is therefore re ported HEXPHAS) aspositive for lupus anticoagulant o r negative. Thequantitative value is provided as an aid in diagnosis.Refer ence Range:0 - 11 PNP/PATIENT (test 4.2 sec () H Testing wh ile the patient is code = PNPPAT) on anticoagul ant therapyincludin g heparin, dabigatran, or direct anti-Xa inhibit ormay cause a false positive result.Referenc e Range:0.0 - 3.0This test wa s developed and its perform ance characteristics determined by [facility]. It has not been cleared or appr ovedby the Food and Drug Administration. LUPUS Comment () Results are int erpreted as ANTICOAGULANT indeterminate for the PANEL INT (test presenceof a lupus code = LUPPT) anticoagulant (LA). Only one phospholipiddep endent assay shows evidence of confirmation, w ith theplatelet velasquez tralization procedure (PNP) result fallingwithin a n indeterminate r chinmay. This test may be fal selypositive if the sample i s collected while the patie nt is onwarfarin, hep carlos, direct Xa inhibitor, o r direct thrombininhibit or therapy. Only persistent LA meet laboratorydiagn ostic criteria for antiphospholipi d syndrome. Toconfirm or re fute the presence of a L A and to determinepersis tence, repeat testing in 12 o r more weeks isrecommended. Ideally, repeat testing should be performed inthe absence of anticoagulant t herapy. All KAYLEIGH-basedanti phospholipid antibodies eval uated are normal. Pleasec ontact [facility] ation if further clarifi cation isneeded.Perfor med At: [facility] [id number] [place], [place] [id number] r Fermin Lopez MD Ph:[phone] sults are interpreted as indeterminate for the presenc eof a lupus anticoagulant ( LA). Only one phospholipiddep endent assay shows evidence of confirmation, w ith theplatelet velasquez tralization procedure (PNP) result fallingwithin a n indeterminate r chinmay. This test may be fal selypositive if the sample i s collected while the patie nt is onwarfarin, hep carlos, direct Xa inhibitor, o r direct thrombininhibit or therapy. Only persistent LA meet laboratorydiagn ostic criteria for antiphospholipi d syndrome. Toconfirm or re fute the presence of a L A and to determinepersis tence, repeat testing in 12 o r more weeks isrecommended. Ideally, repeat testing should be performed inthe absence of anticoagulant t herapy. All KAYLEIGH-basedanti phospholipid antibodies eval uated are normal. Pleasec ontact [facility] ation if further clarifi cation isneeded. HERBER IGG (test <9 GPL U/mL 0-14 Reference Rang e:Negative: code = ACAG) <15Indeterminat e: 15 - 20Low to medium posit manuel: >20 - 80High positive : >80 Negative: <15 Indeterminate: 15 - 20 Low-Med Positiv e: >20 - 80 High Positive: >80Reference Range:Negative: <15Indeterminat e: 15 - 20Low to medium posit manuel: >20 - 80High positive : >80 Negative: <15 I ndeterminate: 15 - 20 Low-Med Positive: >20 - 80 High P ositive: >80Previously r eported result: <10 GPL U/mLEdited by: INFCE on 05/06/20:1008Pr eviously reported result : <9 GPLEdited by: Tito DACOSTA on 05/06/20:1008Pr eviously reported result : <10 GPL U/mLEdited by: CHRIS on 05/05/20:2005 HERBER IGA (test <9 APL U/mL 0-11 Reference Rang e:Negative: code = ACAA) <12Indeterminat e: 12 - 20Low to medium posit manuel: >20 - 80High positive : >80 Negative: <12 I ndeterminate: 12 - 20 Low-Med Positive: >20 - 80 High P ositive: >80Performed At : [facility] [id number] ra Felicia HENAO Ph:[phone] ference Range:Negative: <12Indeterminat e: 12 - 20Low to medium posit manuel: >20 - 80High positive : >80 Negative: <12 I ndeterminate: 12 - 20 Low-Med Positive: >20 - 80 High Positive: >80Performed At : [facility] [id number] [id number] r Brian F. MD Ph:[phone] rformed At: [facility] [id number] ra Felicia HENAO Ph:[phone] eviously reported result : <10 APL U/mLEdited by: CHRIS on 05/06/20:1008Pr eviously reported result : <9 APLEdited by: Tito DACOSTA on 05/06/20:1008Pr eviously reported result : <10 APL U/mLEdited by: CHRIS on 05/05/20:2005 HERBER IGM (test <9 MPL U/mL 0-12 Reference Rang e:Negative: code = ACAM) <13Indeterminat e: 13 - 20Low to medium posit manuel: >20 - 80High positive : >80 Negative: <13 Indeterminate: 13 - 20 Low-Med Positiv e: >20 - 80 High Positive: >80Reference Range:Negative: <13Indeterminat e: 13 - 20Low to medium posit manuel: >20 - 80High positive : >80 Negative: <13 I ndeterminate: 13 - 20 Low-Me d Positive: >20 - 80 High P ositive: >80Previously r eported result: <10 MPL U/mLEdited by: CHRIS on 05/06/20:1008Pr eviously reported result : <9 MPLEdited by: Tito NFCE on 05/06/20:1008Pr eviously reported result : <10 MPL U/mLEdited by: INFCE on 05/05/20:2005 AB 11 G units () Reference Range :Negative: ANTI-PROTHROMBIN <21 IGG (test code = APTABIGG) APS ABS IGG (test 0 GPS () Reference Range:Negative: code = APSIGG) <16Low Positi ve: 16 - 30Moderate Posi tive: 31 - 50High Positive : >50 APS ABS IGM (test 0 MPS () Reference Range:Negative: code = APSIGM) <22Low Positi ve: 22 - 35Moderate Posi tive: 36 - 50High Positive : >50 [id number]-[id number] I <10 SMU () The reference interval IGM (test code = reflects a 3SD or 99th GPIIGM) percentileinter amanda, which is thought to repr esent a potentiallyclin ically significant res ult in accordance with theInternationa l Consensus Statement on th e classificationc riteria for definitive anti phospholipid syndrome (APS). JThromb Toex5406;4:295- 306.Reference Range:Negative: <33 HTAZ-8-TQIZJ I <10 SGU () The reference interval IGG (test code = reflects a 3SD or 99th GPIIGG) percentileinter amanda, which is thought to repr esent a potentiallyclin ically significant res ult in accordance with theInternationa l Consensus Statement on th e classificationc riteria for definitive anti phospholipid syndrome (APS). JThromb Eeum6653;4:295- 306.Reference Range:Negative: <21 NLQG-1-KIZTD I <10 LORI () The reference interval IGA (test code = reflects a 3SD or 99th GPIIGA) percentileinter amanda.Reference Range:Negative: <26 FACTOR [id number] 19:41:00 Test Item Value Reference Range Interpretation Comments FACTOR V (test code = FAC5) ANTI PHOSPHOLIPID [id number] 10:08:00 Test Item Value Reference Interpretation Comments Range RVVT PATIENT 45.9 sec () Reference Range :<= 47.0 (test code = RVVTPAT) RVVT RATIO (test ratio () Testing Not IndicatedNot code = RVVTRAT) indicated PTT LONG ACTING 31.7 sec () A This test bey s not been (test code = validated for PTTLA) monitoringunfra ctionated heparin therapy . aPTT-based therapeuticrang es for unfractionated heparin therapy have no t beenestablished . Consider ordering Hepari n anti-Xa(unfract ionated).Refer ence Range:18 y ears and older: 22.9 - 3 0.2 PTT LONG ACTING sec () Testing Not IndicatedNot MIX (test code = indicatedTh is test was PTTLAM) developed and i ts performance characteristics determined by [facility]. It has not been cleared or appr ovedby the US Food and Drug A dministration. PTT LONG ACTING sec () Testing Not IndicatedNot INCUB MIX (test indicatedThi s test was code = PTTLAMI) developed an d its performance characteristics determined by [facility]. It has not been cleared or appr ovedby the US Food and Drug A dministration. HEXAGONAL PHASE 1 sec () This value i s NEGATIVE.This PHOSPHOLIPID is a qualitativ e assay and is (test code = therefore repor cabrera aspositive HEXPHAS) for lupus antic oagulant or negative. Thequ antitative value is provid ed as an aid in diagnosis.Re ference Range:0 - 11 PNP/PATIENT (test 4.2 sec () H Testing wh ile the patient is code = PNPPAT) on anticoagul ant therapyincludin g heparin, dabigatran, or direct anti-Xa inhibitormay ca use a false positive result .Reference Range:0.0 - 3.0 This test was developed and i ts performance characteristics determined by [facility]. It has not been cleared or appr ovedby the Food and Drug A dministration. LUPUS Comment () Results are int erpreted as ANTICOAGULANT indeterminate for the PANEL INT (test presenceof a lupus code = LUPPT) anticoagulant (LA). Only one phospholipiddep endent assay shows evidence of confirmation, w ith theplatelet velasquez tralization procedure (PNP) result fallingwithin a n indeterminate r chinmay. This test may be fal selypositive if the sample i s collected while the patie nt is onwarfarin, hep carlos, direct Xa inhibitor, o r direct thrombininhibit or therapy. Only persistent LA meet laboratorydiagn ostic criteria for antiphospho lipid syndrome. Tocon firm or refute the presence of a LA and to determinepersis tence, repeat testing in 12 o r more weeks isrecommended. Ideally, repeat testing should be performed inthe absence of anticoagulant t herapy. All KAYLEIGH-basedanti phospholipid antibodies eval uated are normal. Pleasec ontact [facility] ation if further clarifi cation isneeded.Perfor med At: [facility] [facility] [place], [place] [id number] r Fermin Lopez MD Ph:[phone] sults are interpreted as indeterminate for the presenc eof a lupus anticoagulant ( LA). Only one phospholipiddep endent assay shows evidence of confirmation, w ith theplatelet velasquez tralization procedure (PNP) result fallingwithin a n indeterminate r chinmay. This test may be fal selypositive if the sample i s collected while the patie nt is onwarfarin, hep carlos, direct Xa inhibitor, o r direct thrombininhibit or therapy. Only persistent LA meet laboratorydiagn ostic criteria for antiphospho lipid syndrome. Tocon firm or refute the presence of a LA and to determinepersis tence, repeat testing in 12 o r more weeks isrecommended. Ideally, repeat testing should be performed inthe absence of anticoagulant t herapy. All KAYLEIGH-basedanti phospholipid antibodies eval uated are normal. Pleasec ontact [facility] ation if further clarifi cation isneeded. HERBER IGG (test <10 GPL () Reference Rang e:Negative: code = ACAG) <15Indeterminat e: 15 - 20Low to medium posit manuel: >20 - 80High positive : >80 Negative: <15 I ndeterminate: 15 - 20 Low-Med Positive: >20 - 80 High Posi tive: >80Reference Ra nge:Negative: <15Indeterminat e: 15 - 20Low to medium posit manuel: >20 - 80High positive : >80Previously r eported result: <9 GPLE dited by: CHRIS on 05/06/20:1008Pr eviously reported result : <10 GPL U/mLEdited by: CHRIS on 05/05/20:2005 HERBER IGA (test <10 APL () Reference Rang e:Negative: code = ACAA) <12Indeterminat e: 12 - 20Low to medium posit manuel: >20 - 80High positive : >80 Negative: <12 I ndeterminate: 12 - 20 Low-Med Positive: >20 - 80 High Posit manuel: >80Performed At : [facility] [address] [id number] ra Felicia HENAO Ph:[phone] ference Range:Negative: <12Indeterminat e: 12 - 20Low to medium posit manuel: >20 - 80High positive : >80Previously r eported result: <9 APLE dited by: CHRIS on 05/06/20:1008Pr eviously reported result : <10 APL U/mLEdited by: CHRIS on 05/05/20:2005 HERBER IGM (test <10 MPL () Reference Rang e:Negative: code = ACAM) <13Indeterminat e: 13 - 20Low to medium posit manuel: >20 - 80High positive : >80 Negative: <13 I ndeterminate: 13 - 20 Low-Med Positive: >20 - 80 High Posit manuel: >80Reference Ra nge:Negative: <13Indeterminat e: 13 - 20Low to medium posit manuel: >20 - 80High positive : >80Previously r eported result: <9 MPLE dited by: CHRIS on 05/06/20:1008Pr eviously reported result : <10 MPL U/mLEdited by: CHRIS on 05/05/20:2005 AB 11 G units () Reference Range :Negative: <21 ANTI-PROTHROMBIN IGG (test code = APTABIGG) APS ABS IGG (test 0 GPS () Reference Range:Negative: code = APSIGG) <16Low Positi ve: 16 - 30Moderate Posi tive: 31 - 50High Positive : >50 APS ABS IGM (test 0 MPS () Reference Range:Negative: code = APSIGM) <22Low Positi ve: 22 - 35Moderate Posi tive: 36 - 50High Positive : >50 [id number]-[id number] I <10 SMU () The reference interval IGM (test code = reflects a 3SD or 99th GPIIGM) percentileinter amanda, which is thought to repr esent a potentiallyclin ically significant res ult in accordance with theInternationa l Consensus Statement on e classificationc riteria for definitive anti phospholipid syndrome (APS). JThromb Ygmq5225;4:295- 306.Reference Range:Negative: <33 DEKA-7-JNLPD I <10 SGU () The reference interval IGG (test code = reflects a 3SD or 99th GPIIGG) percentileinter amanda, which is thought to repr esent a potentiallyclin ically significant res ult in accordance with theInternationa l Consensus Statement on e classificationc riteria for definitive anti phospholipid syndrome (APS). JThromb Bswj9529;4:295- 306.Reference Range:Negative: <21 RBLR-7-IPVPZ I <10 LORI () The reference interval IGA (test code = reflects a 3SD or 99th GPIIGA) percentileinter amanda.Reference Range:Negative: <26 FACTOR [id number] 10:08:00 Test Item Value Reference Range Interpretation Comments FACTOR V (test code = FAC5) ANTI PHOSPHOLIPID [id number] 10:08:00 Test Item Value Reference Interpretation Comments Range RVVT PATIENT 45.9 sec () Reference Range :<= 47.0 (test code = RVVTPAT) RVVT RATIO (test ratio () Testing Not IndicatedNot code = RVVTRAT) indicated PTT LONG ACTING 31.7 sec () A This test bey s not been (test code = validated for PTTLA) monitoringunfra ctionated heparin therapy . aPTT-based therapeuticrang es for unfractionated heparin therapy have no t beenestablished . Consider ordering Hepari n anti-Xa(unfract ionated).Refer ence Range:18 y ears and older: 22.9 - 3 0.2 PTT LONG ACTING sec () Testing Not IndicatedNot MIX (test code = indicatedTh is test was PTTLAM) developed and i ts performance characteristics determined by [facility]. It has not been cleared or appr ovedby the [place] Food and Drug A dministration. PTT LONG ACTING sec () Testing Not IndicatedNot INCUB MIX (test indicatedThi s test was code = PTTLAMI) developed an d its performance characteristics determined by [facility]. It has not been cleared or appr ovedby the [place] Food and Drug A dministration. HEXAGONAL PHASE 1 sec () This value i s NEGATIVE.This PHOSPHOLIPID is a qualitativ e assay and is (test code = therefore repor cabrera aspositive HEXPHAS) for lupus antic oagulant or negative. Thequ antitative value is provid ed as an aid in diagnosis.Re ference Range:0 - 11 PNP/PATIENT (test 4.2 sec () H Testing wh ile the patient is code = PNPPAT) on anticoagul ant therapyincludin g heparin, dabigatran, or direct anti-Xa inhibitormay ca use a false positive result .Reference Range:0.0 - 3.0 This test was developed and i ts performance characteristics determined by [facility]. It has not been cleared or appr ovedby the Food and Drug A dministration. LUPUS Comment () Results are int erpreted as ANTICOAGULANT indeterminate for the PANEL INT (test presenceof a lupus code = LUPPT) anticoagulant (LA). Only one phospholipiddep endent assay shows evidence of confirmation, w ith theplatelet velasquez tralization procedure (PNP) result fallingwithin a n indeterminate r chinmay. This test may be fal selypositive if the sample i s collected while the patie nt is onwarfarin, hep carlos, direct Xa inhibitor, o r direct thrombininhibit or therapy. Only persistent LA meet laboratorydiagn ostic criteria for antiphospho lipid syndrome. Tocon firm or refute the presence of a LA and to determinepersis tence, repeat testing in 12 o r more weeks isrecommended. Ideally, repeat testing should be performed inthe absence of anticoagulant t herapy. All KAYLEIGH-basedanti phospholipid antibodies eval uated are normal. Pleasec ontact [facility] Co[facility] ation if further clarifi cation isneeded.Perfor med At: [facility] [id number] [place], [place] [id number] r Fermin Lopez MD Ph:[phone] sults are interpreted as indeterminate for the presenc eof a lupus anticoagulant ( LA). Only one phospholipiddep endent assay shows evidence of confirmation, w ith theplatelet velasquez tralization procedure (PNP) result fallingwithin a n indeterminate r chinmay. This test may be fal selypositive if the sample i s collected while the patie nt is onwarfarin, hep carlos, direct Xa inhibitor, o r direct thrombininhibit or therapy. Only persistent LA meet laboratorydiagn ostic criteria for antiphospho lipid syndrome. Tocon firm or refute the presence of a LA and to determinepersis tence, repeat testing in 12 o r more weeks isrecommended. Ideally, repeat testing should be performed inthe absence of anticoagulant t herapy. All KAYLEIGH-basedanti phospholipid antibodies eval uated are normal. Pleasec ontact [facility] Co[facility] ation if further clarifi cation isneeded. HERBER IGG (test <9 GPL U/mL 0-14 Reference Rang e:Negative: code = ACAG) <15Indeterminat e: 15 - 20Low to medium posit manuel: >20 - 80High positive : >80 Negative: <15 I ndeterminate: 15 - 20 Low-Med Positive: >20 - 80 High Posit manuel: >80Reference Ra nge:Negative: <15Indeterminat e: 15 - 20Low to medium posit manuel: >20 - 80High positive : >80 Negative: <15 I ndeterminate: 15 - 20 Low-Med Positive: >20 - 80 High Posit manuel: >80Previously r eported result: <10 GPL U/mLEdited by: CHRIS on 05/06/20:1008Pr eviously reported result : <9 GPLEdited by: CHRIS on 05/06/20:1008Pr eviously reported result : <10 GPL U/mLEdited by: CHRIS on 05/05/20:2005 HERBER IGA (test <9 APL U/mL 0-11 Reference Rang e:Negative: code = ACAA) <12Indeterminat e: 12 - 20Low to medium posit manuel: >20 - 80High positive : >80 Negative: <12 I ndeterminate: 12 - 20 Low-Med Positive: >20 - 80 High Posi tive: >80Performed At : [facility] [address] [place], [place] [id number] ra Felicia HENAO Ph:[phone] ference Range:Negative: <12Indeterminat e: 12 - 20Low to medium posit manuel: >20 - 80High positive : >80 Negative: <12 I ndeterminate: 12 - 20 Low-Med Positive: >20 - 80 High Posit manuel: >80Performed At : [facility] [employer] [address] [id number] r Fermin Lopez MD Ph:[phone] rformed At: [facility] [place], [place] [id number] ra Felicia HENAO Ph:[phone] eviously reported result : <10 APL U/mLEdited by: CHRIS on 05/06/20:1008Pr eviously reported result : <9 APLEdited by: CHRIS on 05/06/20:1008Pr eviously reported result : <10 APL U/mLEdited by: CHRIS on 05/05/20:2005 HERBER IGM (test <9 MPL U/mL 0-12 Reference Rang e:Negative: code = ACAM) <13Indeterminat e: 13 - 20Low to medium posit manuel: >20 - 80High positive : >80 Negative: <13 I ndeterminate: 13 - 20 Low-Med Positive: >20 - 80 High Posit manuel: >80Reference Ra nge:Negative: <13Indeterminat e: 13 - 20Low to medium posit manuel: >20 - 80High positive : >80 Negative: <13 Indeterminate: 13 - 20 Low-Med Positive: >20 - 80 High Posit manuel: >80Previousl y reported result: <10 MPL U/mLEdited by: CHRIS on 05/06/20:1008Pr eviously reported result : <9 MPLEdited by: CHRIS on 05/06/20:1008Pr eviously reported result : <10 MPL U/mLEdited by: CHRIS on 05/05/20:2005 AB 11 G units () Reference Range :Negative: <21 ANTI-PROTHROMBIN IGG (test code = APTABIGG) APS ABS IGG (test 0 GPS () Reference Range:Negative: code = APSIGG) <16Low Positi ve: 16 - 30Moderate Posi tive: 31 - 50High Positive : >50 APS ABS IGM (test 0 MPS () Reference Range:Negative: code = APSIGM) <22Low Positi ve: 22 - 35Moderate Posi tive: 36 - 50High Positive : >50 JYCB-0-MIODJ I <10 SMU () The reference interval IGM (test code = reflects a 3SD or 99th GPIIGM) percentileinter amanda, which is thought to repr esent a potentiallyclin ically significant res ult in accordance with theInternationa l Consensus Statement on e classificationc riteria for definitive anti phospholipid syndrome (APS). JThromb Fyxt4161;4:295- 306.Reference Range:Negative: <33 VXGQ-3-LXVSL I <10 SGU () The reference interval IGG (test code = reflects a 3SD or 99th GPIIGG) percentileinter amanda, which is thought to repr esent a potentiallyclin ically significant res ult in accordance with theInternationa l Consensus Statement on th e classificationc riteria for definitive anti phospholipid syndrome (APS). JThromb Nzad0221;4:295- 306.Reference Range:Negative: <21 DETC-6-HHBWN I <10 LORI () The reference interval IGA (test code = reflects a 3SD or 99th GPIIGA) percentileinter amanda.Reference Range:Negative: <26 FACTOR [id number] 10:08:00 Test Item Value Reference Range Interpretation Comments FACTOR V (test code = FAC5) ANTI PHOSPHOLIPID [id number] 20:06:00 Test Item Value Reference Interpretation Comments Range RVVT PATIENT 45.9 sec () Reference Range :<= 47.0 (test code = RVVTPAT) RVVT RATIO (test ratio () Testing Not IndicatedNot code = RVVTRAT) indicated PTT LONG ACTING 31.7 sec () A This test bey s not been (test code = validated for PTTLA) monitoringunfra ctionated heparin therapy . aPTT-based therapeuticrang es for unfractionated heparin therapy have no t beenestablished . Consider ordering Hepari n anti-Xa(unfract ionated).Refer ence Range:18 y ears and older: 22.9 - 3 0.2 PTT LONG ACTING sec () Testing Not IndicatedNot MIX (test code = indicatedTh is test was PTTLAM) developed and i ts performance characteristics determined by [facility]. It has not been cleared or appr ovedby the US Food and Drug A dministration. PTT LONG ACTING sec () Testing Not IndicatedNot INCUB MIX (test indicatedThi s test was code = PTTLAMI) developed an d its performance characteristics determined by [facility]. It has not been cleared or appr ovedby the US Food and Drug A dministration. HEXAGONAL PHASE 1 sec () This value i s NEGATIVE.This PHOSPHOLIPID is a qualitativ e assay and is (test code = therefore repor cabrera aspositive HEXPHAS) for lupus antic oagulant or negative. Thequ antitative value is provid ed as an aid in diagnosis.Re ference Range:0 - 11 PNP/PATIENT (test 4.2 sec () H Testing wh ile the patient is code = PNPPAT) on anticoagul ant therapyincludin g heparin, dabigatran, or direct anti-Xa inhibitormay ca use a false positive result .Reference Range:0.0 - 3.0 This test was developed and i ts performance characteristics determined by [facility]. It has not been cleared or appr ovedby the Food and Drug A dministration. LUPUS Comment () Results are int erpreted as ANTICOAGULANT indeterminate for the PANEL INT (test presenceof a lupus code = LUPPT) anticoagulant (LA). Only one phospholipiddep endent assay shows evidence of confirmation, w ith theplatelet velasquez tralization procedure (PNP) result fallingwithin a n indeterminate r chinmay. This test may be fal selypositive if the sample i s collected while the patie nt is onwarfarin, hep carlos, direct Xa inhibitor, o r direct thrombininhibit or therapy. Only persistent LA meet laboratorydiagn ostic criteria for antiphospho lipid syndrome. Tocon firm or refute the presence of a LA and to determinepersis tence, repeat testing in 12 o r more weeks isrecommended. Ideally, repeat testing should be performed inthe absence of anticoagulant t herapy. All KAYLEIGH-basedanti phospholipid antibodies eval uated are normal. Pleasec ontact [facility] ation if further clarifi cation isneeded.Perfor med At: [facility] [id number] [facility] [place], [place] [id number] r Fermin Lopez MD Ph:[phone] HERBER IGG (test <9 GPL U/mL 0-14 Reference Rang e:Negative: code = ACAG) <15Indeterminat e: 15 - 20Low to medium posit maunel: >20 - 80High positive : >80 Negative: <15 I ndeterminate: 15 - 20 Low-Med Positive: >20 - 80 High Posi tive: >80Previously r eported result: <10 GPL U/mLEdited by: CHRIS on :2005 HERBER IGA (test <9 APL U/mL 0-11 Reference Rang e:Negative: code = ACAA) <12Indeterminat e: 12 - 20Low to medium posit manuel: >20 - 80High positive : >80 Negative: <12 I ndeterminate: 12 - 20 Low-Med Positive: >20 - 80 High Posit manuel: >80Performed At : [facility] [id number] ra Felicia HENAO Ph:[phone] eviously reported result : <10 APL U/mLEdited by: CHRIS on 05/05/20:2005 HERBER IGM (test <9 MPL U/mL 0-12 Reference Rang e:Negative: code = ACAM) <13Indeterminat e: 13 - 20Low to medium posit manuel: >20 - 80High positive : >80 Negative: <13 I ndeterminate: 13 - 20 Low-Med Positive: >20 - 80 High Posit manuel: >80Previously r eported result: <10 MPL U/mLEdited by: CHRIS on :2005 AB 11 G units () Reference Range :Negative: <21 ANTI-PROTHROMBIN IGG (test code = APTABIGG) APS ABS IGG (test 0 GPS () Reference Range:Negative: code = APSIGG) <16Low Positi ve: 16 - 30Moderate Posi tive: 31 - 50High Positive : >50 APS ABS IGM (test 0 MPS () Reference Range:Negative: code = APSIGM) <22Low Positi ve: 22 - 35Moderate Posi tive: 36 - 50High Positive : >50 TCXH-8-INGYV I <10 SMU () The reference interval IGM (test code = reflects a 3SD or 99th GPIIGM) percentileinter amanda, which is thought to repr esent a potentiallyclin ically significant res ult in accordance with theInternationa l Consensus Statement on e classificationc riteria for definitive anti phospholipid syndrome (APS). JThromb Fpbl4068;4:295- 306.Reference Range:Negative: <33 PQXQ-1-DPELX I <10 SGU () The reference interval IGG (test code = reflects a 3SD or 99th GPIIGG) percentileinter amanda, which is thought to repr esent a potentiallyclin ically significant res ult in accordance with theInternationa l Consensus Statement on e classificationc riteria for definitive anti phospholipid syndrome (APS). JThromb Kwoh4960;4:295- 306.Reference Range:Negative: <21 WSOI-6-TQXKG I <10 LORI () The reference interval IGA (test code = reflects a 3SD or 99th GPIIGA) percentileinter amanda.Reference Range:Negative: <26 FACTOR [id number] 20:06:00 Test Item Value Reference Range Interpretation Comments FACTOR V (test code = FAC5) ANTI PHOSPHOLIPID [id number] 15:08:00 Test Item Value Reference Interpretation Comments Range RVVT PATIENT 45.9 sec () Reference Range :<= 47.0 (test code = RVVTPAT) RVVT RATIO (test ratio () Testing Not IndicatedNot code = RVVTRAT) indicated PTT LONG ACTING 31.7 sec () A This test bey s not been (test code = validated for PTTLA) monitoringunfra ctionated heparin therapy . aPTT-based therapeuticrang es for unfractionated heparin therapy have no t beenestablished . Consider ordering Hepari n anti-Xa(unfract ionated).Refer ence Range:18 y ears and older: 22.9 - 3 0.2 PTT LONG ACTING sec () Testing Not IndicatedNot MIX (test code = indicatedTh is test was PTTLAM) developed and i ts performance characteristics determined by [facility]. It has not been cleared or appr ovedby the US Food and Drug A dministration. PTT LONG ACTING sec () Testing Not IndicatedNot INCUB MIX (test indicatedThi s test was code = PTTLAMI) developed an d its performance characteristics determined by [facility]. It has not been cleared or appr ovedby the US Food and Drug A dministration. HEXAGONAL PHASE 1 sec () This value i s NEGATIVE.This PHOSPHOLIPID is a qualitativ e assay and is (test code = therefore repor cabrera aspositive HEXPHAS) for lupus antic oagulant or negative. Thequ antitative value is provid ed as an aid in diagnosis.Re ference Range:0 - 11 PNP/PATIENT (test 4.2 sec () H Testing wh ile the patient is code = PNPPAT) on anticoagul ant therapyincludin g heparin, dabigatran, or direct anti-Xa inhibitormay ca use a false positive result .Reference Range:0.0 - 3.0 This test was developed and i ts performance characteristics determined by [facility]. It has not been cleared or appr ovedby the Food and Drug A dministration. LUPUS Comment () Results are int erpreted as ANTICOAGULANT indeterminate for the PANEL INT (test presenceof a lupus code = LUPPT) anticoagulant (LA). Only one phospholipiddep endent assay shows evidence of confirmation, w ith theplatelet velasquez tralization procedure (PNP) result fallingwithin a n indeterminate r chinmay. This test may be fal selypositive if the sample i s collected while the patie nt is onwarfarin, hep carlos, direct Xa inhibitor, o r direct thrombininhibit or therapy. Only persistent LA meet laboratorydiagn ostic criteria for antiphospho lipid syndrome. Tocon firm or refute the presence of a LA and to determinepersis tence, repeat testing in 12 o r more weeks isrecommended. Ideally, repeat testing should be performed inthe absence of anticoagulant t herapy. All KAYLEIGH-basedanti phospholipid antibodies eval uated are normal. Pleasec ontact [facility] Co[facility] ation if further clarifi cation isneeded.Perfor med At: [facility] [id number] [facility] [place], [place] [id number] r Fermin Lopez MD Ph:[phone] HERBER IGG (test <10 GPL () Reference Rang e:Negative: code = ACAG) <15Indeterminat e: 15 - 20Low to medium posit manuel: >20 - 80High positive : >80 HERBER IGA (test <10 APL () Reference Rang e:Negative: code = ACAA) <12Indeterminat e: 12 - 20Low to medium posit manuel: >20 - 80High positive : >80 HERBER IGM (test <10 MPL () Reference Rang e:Negative: code = ACAM) <13Indeterminat e: 13 - 20Low to medium posit manuel: >20 - 80High positive : >80 AB 11 G units () Reference Range :Negative: <21 ANTI-PROTHROMBIN IGG (test code = APTABIGG) APS ABS IGG (test 0 GPS () Reference Range:Negative: code = APSIGG) <16Low Positi ve: 16 - 30Moderate Posi tive: 31 - 50High Positive : >50 APS ABS IGM (test 0 MPS () Reference Range:Negative: code = APSIGM) <22Low Positi ve: 22 - 35Moderate Posi tive: 36 - 50High Positive : >50 IXPD-6-URBJG I <10 SMU () The reference interval IGM (test code = reflects a 3SD or 99th GPIIGM) percentileinter amanda, which is thought to repr esent a potentiallyclin ically significant res ult in accordance with theInternationa l Consensus Statement on th e classificationc riteria for definitive anti phospholipid syndrome (APS). JThromb Ogrx7448;4:295- 306.Reference Range:Negative: <33 LEBM-7-BEEKD I <10 SGU () The reference interval IGG (test code = reflects a 3SD or 99th GPIIGG) percentileinter amanda, which is thought to repr esent a potentiallyclin ically significant res ult in accordance with theInternationa l Consensus Statement on th e classificationc riteria for definitive anti phospholipid syndrome (APS). JThromb Oelq1839;4:295- 306.Reference Range:Negative: <21 MIFL-9-KFFQJ I <10 LORI () The reference interval IGA (test code = reflects a 3SD or 99th GPIIGA) percentileinter amanda.Reference Range:Negative: <26 FACTOR [id number] 15:08:00 Test Item Value Reference Range Interpretation Comments FACTOR V (test code = FAC5) [id number] 07:32:00 Test Item Value Reference Range Interpretation Comments GLUBED (test code = GLUBED) 113 MG/DL 70-105 H [id number] 05:56:00 Test Item Value Reference Range Interpretation Comments GLUBED (test code = GLUBED) 112 MG/DL 70-105 H [id number] 23:48:00 Test Item Value Reference Range Interpretation Comments GLUBED (test code = GLUBED) 117 MG/DL 70-105 H [id number] 20:18:00 Test Item Value Reference Range Interpretation Comments CKMB (test code = 2.67 ng/mL 0.97-3.77 INTERPRETA TIVE CKMBT) DATA:Negative o r inconclusive re sults do not exclude myocardialinfar ction. Serial tests at appropriate int ervals may benecessary. [id number] 20:18:00 Test Item Value Reference Range Interpretation Comments TROPONIN-I (test < 0.30 ng/mL 0.00-0.30 N INTERPRETAT MANUEL code = TROPI) DATA:Negative or inconclusive re uslts do not exclude myocardialinfar ction. Serial tests at appropriate int ervals may benecessary. [id number] 18:37:00 Test Item Value Reference Range Interpretation Comments GLUBED (test code = GLUBED) 115 MG/DL 70-105 H [id number] 12:06:00 Test Item Value Reference Range Interpretation Comments GLUBED (test code = GLUBED) 95 MG/DL 70-105 N [id number] 06:50:00 Test Item Value Reference Range Interpretation Comments GLUBED (test code = GLUBED) 108 MG/DL 70-105 H [id number] 00:37:00 Test Item Value Reference Range Interpretation Comments GLUBED (test code = GLUBED) 103 MG/DL 70-105 N [id number] 17:22:00 Test Item Value Reference Range Interpretation Comments GLUBED (test code = GLUBED) 130 MG/DL 70-105 H [id number] 11:17:00 Test Item Value Reference Range Interpretation Comments GLUBED (test code = GLUBED) 113 MG/DL 70-105 H - XR CHEST 1 [id number] 07:42:00 [facility] 1965 Sex: FPatient Name: EMILY ARRINGTON Unit No: [id number] EXAMS: CPT CODE: [id number] XR CHEST 1 V 40578 HISTORY: Shortness of breath Comparison to April 17, 2020 Location code: B2 FINDINGS: Frontal view of the chest demonstrates a mildly enlarged, but stable cardiomediastinal silhouette. The trachea is midline. Mild stable prominence of the pulmonary trunk and pulmonary arteries. The lungs are clear. There is no effusion or pneumothorax. The bones are intact. IMPRESSION: 1. Mild cardiomegaly, without acute decompensation. 2. Suggestion of mild pulmonary arterial hypertension at 0742 Reported and signed by: Shabbir Do M.D. CC: Richy Che MD; Pietro Rodney MD Technologist: Milena Brown Time: DAP (Gy m2): Air Kerma (mGy): Trscr Dt/Tm: 04/22/2020 (0742) by:[email or web address] Printed Date/Time: 04/22/2020 (0745) Name: EMILY ARRINGTON [facility] Phys: Pietro Valladares MD [address] : 1965 Age: 55 Sex: [place] [id number] Loc: P.0215 1 Exam Date: 04/22/2020 Status: ADM IN PH: FAX: PAGE1 Signed ReportBASI METABOLIC [id number] 07:10:00 Test Item Value Reference Range Interpretation Comments SODIUM (test code 134 MMOL/L 136-143 L = NA) POTASSIUM (test 4.0 MMOL/L 3.5-5.1 N code = K) CHLORIDE (test 101 MMOL/L 98-107 N code = CL) CARBON DIOXIDE 24 mmol/L 24-31 N (test code = CO2) GLUCOSE (test code 103 mg/dL 70-104 N = GLU) BLOOD UREA 10.8 MG/DL 7.0-21.0 N NITROGEN (test code = BUN) GLOMERULAR >=60 max >60 The estimated FILTRATION RATE estimate glomerular (test code = GFR) filtration rate is computed usingpatient ra ce, age (>18), sex, and serum creatinin e. If anyof the neede d data elements a re missing the Laboratory deneen ot compute an estimation of t he glomerular filtration rate . CREATININE (test 0.6 mg/dL 0.8-1.5 L code = CREAT) CALCIUM (test code 9.4 mg/dL 8.8-10.2 N = CA) [id number] 07:10:00 Test Item Value Reference Range Interpretation Comments PHOSPHOROUS (test code = PHOS) 3.6 mg/dL 2.7-4.5 N [id number] 07:10:00 Test Item Value Reference Range Interpretation Comments MAGNESIUM (test code = MAG) 2.2 mg/dL 1.4-2.6 N THROMBOPLASTIN TIME [id number] 06:28:00 Test Item Value Reference Range Interpretation Comments THROMBOPLASTIN TIME 70.5 SECONDS 23.8-34.8 H INTERPRE TATIVE PARTIAL (test code = DATA: erapeutic PTT) range: Unfractionated heparin:55 - 80 seconds Argatroban:1.5 to 3 times the basel ine PTT CBC W/AUTO [id number] 06:01:00 Test Item Value Reference Range Interpretation Comments WHITE BLOOD CELL (test code = 7.1 x10 3/uL 4.8-10.8 N WBC) RED BLOOD CELL (test code = 4.53 x10 6/uL 4.20-5.40 N RBC) HEMOGLOBIN (test code = HGB) 12.5 g/dL 14.5-20 L HEMATOCRIT (test code = HCT) 39.0 % 37.0-47.0 N MEAN CELL VOLUME (test code = 86.1 fL 81.0-99.0 N MCV) MEAN CELL HGB (test code = MCH) 27.6 pg 27-31 N MEAN CELL HGB CONCENTRATION 32.1 G/DL 33-36.5 L (test code = MCHC) RED CELL DISTRIBUTION WIDTH 13.8 % 12.9-16.9 N (test code = RDW) PLATELET COUNT (test code = 216 150-440 N PLT) MEAN PLATELET VOLUME (test code 10.1 fL 8.9-12.4 N = MPV) NEUTROPHIL % (test code = NT%) 61.8 % 42.2-75.2 N LYMPHOCYTE % (test code = LY%) 26.9 % 20.5-51.1 N MONOCYTE % (test code = MO%) 7.6 % 1.7-9.3 N EOSINOPHIL % (test code = EO%) 3.0 % 0.0-7.0 N BASOPHIL % (test code = BA%) 0.4 % 0-2.5 N NEUTROPHIL # (test code = NT#) 4.38 x10 3/uL 1.80-7.70 N LYMPHOCYTE # (test code = LY#) 1.91 x10 3/uL 1.00-4.80 N MONOCYTE # (test code = MO#) 0.54 x10 3/uL 0.00-0.80 N EOSINOPHIL # (test code = EO#) 0.21 x10 3/uL 0.00-0.45 N BASOPHIL # (test code = BA#) 0.03 x10 3/uL 0.0-0.20 N THROMBOPLASTIN TIME [id number] 22:53:00 Test Item Value Reference Range Interpretation Comments THROMBOPLASTIN TIME 83.5 SECONDS 23.8-34.8 H INTERPRE TATIVE PARTIAL (test code = DATA: erapeutic PTT) range: Unfractionated heparin:55 - 80 seconds Argatroban:1.5 to 3 times the basel ine PTT [id number] 18:01:00 Test Item Value Reference Range Interpretation Comments GLUBED (test code = GLUBED) 109 MG/DL 70-105 H THROMBOPLASTIN TIME [id number] 14:28:00 Test Item Value Reference Range Interpretation Comments THROMBOPLASTIN TIME 37.2 SECONDS 23.8-34.8 H INTERPRE TATIVE PARTIAL (test code = DATA: erapeutic PTT) range: Unfractionated heparin:55 - 80 seconds Argatroban:1.5 to 3 times the basel ine PTT - CTA CHEST FOR [id number] 13:26:00 [facility] 1965 Sex: FPatient Name: EMILY ARRINGTON Unit No: [id number] EXAMS: CPT CODE: [id number] [place] [address] [place] angiogram chest with contrast (PE protocol) Location: A1 HISTORY: , Reasses PE, COMPARISON: No prior imaging is available TECHNIQUE: Multiple axial slices through the chest were obtained during 150mL of Isovue-370 contrast administration for evaluation of the pulmonary arteries. Coronal and sagittal maximum intensity projections were performed and evaluated. One or more of the following dose reduction techniques were used: Automated exposure control, adjustment of the mA and/or kV according to patient size, and/or utilization of iterative reconstruction technique. GFR: Greater than 60, Creatinine: 0.6mg/dL DLP: 669mGy-cm. FINDINGS: Pulmonary arteries: There is adequate opacification. There is no filling defect within the pulmonary trunk. There are emboli within the distal bilateral main pulmonary arteries with extension into bilateral upper, lower and right middle lobe segmental pulmonary arteries. If prior imaging is available, comparison is recommended. Thoracic aorta: No evidence for aneurysmal dilatation or dissection. Heart: Heart is moderately enlarged. There is no pericardial effusion. Mediastinum: No hilar or mediastinal adenopathy. Lungs: No discrete airspace densities are identified. No nodules or mass lesions. No interlobular septal thickening or bronchiectasis. Airway: The tr acheobronchial tree is patent. Pleura: No effusions. Abdomen: There is suture material in the proximal stomach. Surgical absence of the gallbladder. Visualized intra-abdominal contents are within normal limits. Bones: Skeletal structures are unremarkable. IMPRESSION: 1. Bilateral pulmonary emboli extending from the distal main [facility] Phys: ROSAURA Sebas Ferguson DO [address] : 1965 Age: 55 Sex: F [place] [address] Loc: P.[id number] 1 Exam Date: 04/21/2020 Status: ADM IN PH: FAX: PAGE 1 Signed Report (CONTINUED) Patient Name: EMILY ARRINGTON Unit No: [id number] EXAMS: CPT CODE: [id number] [place] [address] <Continued> pulmonary arteries and into the segmental arteries. There is sparing of the pulmonary trunk. If prior imaging is available, then comparison is recommended. 2. Cardiomegaly. Preliminary findings were given to Ana Fonseca RN in the ICU at 1325 hours on 04/21/2020 FOR INTERNAL CODING PURPOSES ONLY RESULT CODE: CVR at 1326 Reported and signed by: BRUCE WARD M.D. CC: Sebas Che MDTechnologist: VERONIQUE Ruiz([place])(CT) CTDI: 60.88 DLP: 669.3 Trscr Dt/Tm: 04/21/2020 (1326) by:[email or web address] Printed Date/Time: 04/21/2020 (1329) [facility] Phys: ROSAURA Sebas Ferguson DO [address] : 1965 Age: 55 Sex: [place] [address] Loc: P.0215 1 Exam Date: 04/21/2020 Status: ADM IN PH: FAX: PAGE 2 Signed [id number] 11:47:00 Test Item Value Reference Range Interpretation Comments GLUBED (test code = GLUBED) 96 MG/DL 70-105 N THROMBOPLASTIN TIME [id number] 05:41:00 Test Item Value Reference Range Interpretation Comments THROMBOPLASTIN TIME 134.8 SECONDS 23.8-34.8 HH Critica l Value PARTIAL (test code = reporte d toFirst PTT) Name:YARI Last Name:JODI HICKMAN READ BACK AND VERIFIEDby P.LAB.SKD, on 04/21/20, @ 0541.INTERPRETA TIVE DATA:Therapeuti c range: Unfractionated heparin:55 - 80 seconds Argatroban:1.5 to 3 times the basel ine PTT BASIC METABOLIC [id number] 05:37:00 Test Item Value Reference Range Interpretation Comments SODIUM (test code 135 MMOL/L 136-143 L = NA) POTASSIUM (test 4.1 MMOL/L 3.5-5.1 N code = K) CHLORIDE (test 101 MMOL/L 98-107 N code = CL) CARBON DIOXIDE 27 mmol/L 24-31 N (test code = CO2) GLUCOSE (test code 116 mg/dL 70-104 H = GLU) BLOOD UREA 10.0 MG/DL 7.0-21.0 N NITROGEN (test code = BUN) GLOMERULAR >=60 max >60 The estimated FILTRATION RATE estimate glomerular (test code = GFR) filtration rate is computed usingpatient ra ce, age (>18), sex, and serum creatinin e. If anyof the neede d data elements a re missing the Laboratory deneen ot compute an estimation of t he glomerular filtration rate . CREATININE (test 0.6 mg/dL 0.8-1.5 L code = CREAT) CALCIUM (test code 9.2 mg/dL 8.8-10.2 N = CA) [id number] 05:37:00 Test Item Value Reference Range Interpretation Comments PHOSPHOROUS (test code = PHOS) 3.4 mg/dL 2.7-4.5 N [id number] 05:37:00 Test Item Value Reference Range Interpretation Comments MAGNESIUM (test code = MAG) 2.1 mg/dL 1.4-2.6 N CBC W/AUTO [id number] 05:18:00 Test Item Value Reference Range Interpretation Comments WHITE BLOOD CELL (test code = 6.7 x10 3/uL 4.8-10.8 N WBC) RED BLOOD CELL (test code = 4.44 x10 6/uL 4.20-5.40 N RBC) HEMOGLOBIN (test code = HGB) 12.4 g/dL 14.5-20 L HEMATOCRIT (test code = HCT) 38.2 % 37.0-47.0 N MEAN CELL VOLUME (test code = 86.0 fL 81.0-99.0 N MCV) MEAN CELL HGB (test code = MCH) 27.9 pg 27-31 N MEAN CELL HGB CONCENTRATION 32.5 G/DL 33-36.5 L (test code = MCHC) RED CELL DISTRIBUTION WIDTH 13.4 % 12.9-16.9 N (test code = RDW) PLATELET COUNT (test code = 186 150-440 N PLT) MEAN PLATELET VOLUME (test code 10.2 fL 8.9-12.4 N = MPV) NEUTROPHIL % (test code = NT%) 65.7 % 42.2-75.2 N LYMPHOCYTE % (test code = LY%) 23.9 % 20.5-51.1 N MONOCYTE % (test code = MO%) 6.1 % 1.7-9.3 N EOSINOPHIL % (test code = EO%) 3.7 % 0.0-7.0 N BASOPHIL % (test code = BA%) 0.3 % 0-2.5 N NEUTROPHIL # (test code = NT#) 4.43 x10 3/uL 1.80-7.70 N LYMPHOCYTE # (test code = LY#) 1.61 x10 3/uL 1.00-4.80 N MONOCYTE # (test code = MO#) 0.41 x10 3/uL 0.00-0.80 N EOSINOPHIL # (test code = EO#) 0.25 x10 3/uL 0.00-0.45 N BASOPHIL # (test code = BA#) 0.02 x10 3/uL 0.0-0.20 N [id number] 00:57:00 Test Item Value Reference Range Interpretation Comments GLUBED (test code = GLUBED) 98 MG/DL 70-105 N THROMBOPLASTIN TIME [id number] 23:04:00 Test Item Value Reference Range Interpretation Comments THROMBOPLASTIN TIME 75.1 SECONDS 23.8-34.8 H INTERPRE TATIVE PARTIAL (test code = DATA: erapeutic PTT) range: Unfractionated heparin:55 - 80 seconds Argatroban:1.5 to 3 times the basel ine PTT [id number] 17:41:00 Test Item Value Reference Range Interpretation Comments CKMB (test code = 2.20 ng/mL 0.97-3.77 N INTERPRETA TIVE CKMBT) DATA:Negative o r inconclusive re sults do not exclude myocardialinfar ction. Serial tests at appropriate int ervals may benecessary. [id number] 17:41:00 Test Item Value Reference Range Interpretation Comments TROPONIN-I (test < 0.30 ng/mL 0.00-0.30 N INTERPRETAT MANUEL code = TROPI) DATA:Negative or inconclusive re uslts do not exclude myocardialinfar ction. Serial tests at appropriate int ervals may benecessary. BASIC METABOLIC [id number] 16:57:00 Test Item Value Reference Range Interpretation Comments SODIUM (test code 137 MMOL/L 136-143 N = NA) POTASSIUM (test 3.7 MMOL/L 3.5-5.1 N code = K) CHLORIDE (test 102 MMOL/L 98-107 N code = CL) CARBON DIOXIDE 26 mmol/L 24-31 N (test code = CO2) GLUCOSE (test code 139 mg/dL 70-104 H = GLU) BLOOD UREA 9.7 MG/DL 7.0-21.0 N NITROGEN (test code = BUN) GLOMERULAR >=60 max >60 The estimated FILTRATION RATE estimate glomerular (test code = GFR) filtration rate is computed usingpatient ra ce, age (>18), sex, and serum creatinin e. If anyof the neede d data elements a re missing the Laboratory deneen ot compute an estimation of t he glomerular filtration rate . CREATININE (test 0.8 mg/dL 0.8-1.5 N code = CREAT) CALCIUM (test code 9.2 mg/dL 8.8-10.2 N = CA) COMPREHENSIVE METABOLIC [id number] 16:57:00 Test Item Value Reference Range Interpretation Comments TOTAL PROTEIN (test code = PROT) 7.3 g/dL 6.3-8.3 N ALBUMIN (test code = ALB) 3.0 G/DL 3.5-5.0 L BILIRUBIN TOTAL (test code = BILT) 0.5 mg/dL 0.2-1.0 N SGOT/AST (test code = AST) 26 IU/L 10-34 N SGPT/ALT (test code = ALT) 29 U/L 10-36 N ALKALINE PHOSPHATASE (test code = 86 U/L 32-104 N ALKP) [id number] 16:57:00 Test Item Value Reference Range Interpretation Comments PHOSPHOROUS (test code = PHOS) 3.1 mg/dL 2.7-4.5 N CREATINE KINASE (CK)2020-04-20 16:57:00 Test Item Value Reference Range Interpretation Comments CREATINE KINASE (CK) (test code = CK) 34 U/L 24-204 N LACTIC DEHYDROGENASE(LDH)2020-04-20 16:57:00 Test Item Value Reference Range Interpretation Comments LACTIC DEHYDROGENASE(LDH) (test code 229 U/L 135-214 H = LDH) [id number] 16:57:00 Test Item Value Reference Range Interpretation Comments MAGNESIUM (test code = MAG) 2.0 mg/dL 1.4-2.6 N LACTIC [id number] 16:52:00 Test Item Value Reference Range Interpretation Comments LACTIC ACID (test 1.4 mmol/L 0.5-2.0 N Effective 03/23/2020, code = LACT) units of measur ement for lactic acidrepo rting switched to mmo l/L from mg/dL. Please n ote the reference range has changed accordi ngly PROTHROMBIN [id number] 16:42:00 Test Item Value Reference Range Interpretation Comments PROTHROMBIN TIME 11.9 SECONDS 10.3-12.9 N PATIENT (test code = PTP) INTERNATIONAL 1.05 INR UNIT 0.9-1.11 N The INR is us eful only NORMAL RATIO (test for monit oring code = INR) anticoagulant therapy.It may be unreliable in t he initial phase o f antigoagulation and in unstable patien ts. Indication for Anticoagulation Recommended INR 1. Prevention of v enous thomboembolism 2.0-3.0in high- risk patients; treat ment of venousthrombosi s and pulmonary embol ism aftera course o f heparin; preven tion of systemicembolis m in a variety of cond itions, including atria l fibrillation an d prothetic tissu e heart valves, 2. Pros thetic mechanical hear t valves; 2.5-3.5recurren t systemic emboli sm. THROMBOPLASTIN TIME [id number] 16:42:00 Test Item Value Reference Range Interpretation Comments THROMBOPLASTIN TIME 36.7 SECONDS 23.8-34.8 H INTERPRE TATIVE PARTIAL (test code = DATA: erapeutic PTT) range: Unfractionated heparin:55 - 80 seconds Argatroban:1.5 to 3 times the basel ine PTT [id number] 16:42:00 Test Item Value Reference Range Interpretation Comments D-DIMER (test 12400 ng/mL 0-500 H THE DDIMER MET HOD IS USED IN code = DDIMER) THE EXCLUSION OF DEEP VEINTHROMBOSIS AND/OR PULMONARY EMBOL ISM AND THE CLINICAL CUT-OF F VALUE FOR EXCLUSION (500 NG/ML FEU) OF THESE CONDITION SIS VALIDATED BY THE MANUFACT URER OF THE METHOD. A NEGAT MANEUL DDIMER RESULT WHEN COM BINED WITH A CLINICALASSESSM ENT OF LOW PRETEST PROBABI LITY HAS BEEN SHOWN TO HAVEA HIGH NEGATIVE PREDICTIVE VALU E OF DVT OR PE. D-DIMER AMANDA UES >500 ng/mL ARE NOT D IAGNOSTIC FOR DVT,PEOR DIC WI THOUT OTHER CONFIRMATORY TE STS AND APPROPRIATECLIN ICAL EVALUATIONS. CBC W/AUTO [id number] 16:31:00 Test Item Value Reference Range Interpretation Comments WHITE BLOOD CELL (test code = 6.4 x10 3/uL 4.8-10.8 N WBC) RED BLOOD CELL (test code = 4.41 x10 6/uL 4.20-5.40 N RBC) HEMOGLOBIN (test code = HGB) 12.5 g/dL 14.5-20 L HEMATOCRIT (test code = HCT) 38.8 % 37.0-47.0 N MEAN CELL VOLUME (test code = 88.0 fL 81.0-99.0 N MCV) MEAN CELL HGB (test code = MCH) 28.3 pg 27-31 N MEAN CELL HGB CONCENTRATION 32.2 G/DL 33-36.5 L (test code = MCHC) RED CELL DISTRIBUTION WIDTH 13.6 % 12.9-16.9 N (test code = RDW) PLATELET COUNT (test code = 192 150-440 N PLT) MEAN PLATELET VOLUME (test code 10.4 fL 8.9-12.4 N = MPV) NEUTROPHIL % (test code = NT%) 62.4 % 42.2-75.2 N LYMPHOCYTE % (test code = LY%) 27.1 % 20.5-51.1 N MONOCYTE % (test code = MO%) 6.4 % 1.7-9.3 N EOSINOPHIL % (test code = EO%) 3.4 % 0.0-7.0 N BASOPHIL % (test code = BA%) 0.5 % 0-2.5 N NEUTROPHIL # (test code = NT#) 4.00 x10 3/uL 1.80-7.70 N LYMPHOCYTE # (test code = LY#) 1.74 x10 3/uL 1.00-4.80 N MONOCYTE # (test code = MO#) 0.41 x10 3/uL 0.00-0.80 N EOSINOPHIL # (test code = EO#) 0.22 x10 3/uL 0.00-0.45 N BASOPHIL # (test code = BA#) 0.03 x10 3/uL 0.0-0.20 N ARTERIAL BLOOD [id number] 16:15:00 Test Item Value Reference Range Interpretation Comments ARTERIAL BLOOD GAS PH (test code 7.44 7.35-7.45 N = PHA) ARTERIAL BLOOD GAS PCO2 (test 39.1 mmHg 35.0-45.0 N code = PCO2A) ARTERIAL BLOOD GAS PO2 (test code 82.2 mmHg 80.0-95.0 N = PO2A) BICARBONATE TOTAL HCO3 (test code 26.5 mmol/L 22.0-24.0 H = HCO3) BASE EXCESS (test code = JOHNNY) 2.4 mmol/L (+/-)2.0 H ABG O2 SATURATION (test code = 95.6 % 95.0-100.0 N SATA) ABG TYPE (test code = TYPEA) ROOM AIR ABG SITE (test code = SITEA) R rad ALLENS TEST (test code = ALLENS) Pass TOTAL HGB (test code = THB) 13.0 g/dL 12.0-16.0 N METHEMOGLOBIN (test code = <0.8 % 0-1.5 N METHGB) GLUCOSE BEDSIDE [id number] 14:30:00 Test Item Value Reference Range Interpretation Comments GLUCOSE BEDSIDE TESTING (test code = 97 mg/dL 70-110 N GLUBED) GLUCOSE BEDSIDE [id number] 08:08:00 Test Item Value Reference Range Interpretation Comments GLUCOSE BEDSIDE TESTING (test code = 96 mg/dL 70-110 N GLUBED) THROMBOPLASTIN TIME [id number] 04:46:00 Test Item Value Reference Range Interpretation Comments THROMBOPLASTIN TIME PARTIAL 74.3 SECONDS 26-35 H (test code = PTT) CBC W/AUTO [id number] 04:14:00 Test Item Value Reference Range Interpretation Comments WHITE BLOOD CELL (test code = 5.7 K/mm3 3.5-11.0 N WBC) RED BLOOD CELL (test code = 4.23 M/mm3 4.70-6.10 L RBC) HEMOGLOBIN (test code = HGB) 11.9 G/DL 10.4-14.9 N HEMATOCRIT (test code = HCT) 37.5 % 31.5-44.1 N MEAN CELL VOLUME (test code = 88.7 Fl 84.5-98.6 N MCV) MEAN CELL HGB (test code = MCH) 28.1 pg 27.0-34.2 N MEAN CELL HGB CONCETRATION 31.7 G/DL 31.5-34.0 N (test code = MCHC) RED CELL DISTRIBUTION WIDTH 13.7 SD 11.5-14.5 N (test code = RDW) PLATELET COUNT (test code = 182 K/mm3 150-450 N PLT) MEAN PLATELET VOLUME (test code 10.20 fL 7.0-10.5 N = MPV) NEUTROPHIL % (test code = NT%) 56.1 % 40-76 N IMMATURE GRANULOCYTE % (test 0.2 % 0.0-5.0 N code = IG%) LYMPHOCYTE % (test code = LY%) 30.8 % 20.5-51.1 N MONOCYTE % (test code = MO%) 8.1 % 1.7-9.3 N EOSINOPHIL % (test code = EO%) 4.4 % 0.0-6.0 N BASOPHIL % (test code = BA%) 0.4 % 0.0-2.0 N NUCLEATED RBC % (test code = 0.0 /100WBC% 0.0-1.0 N NRBC%) NEUTROPHIL # (test code = NT#) 3.2 K/mm3 1.8-7.6 N IMMATURE GRANULOCYTE # (test 0.01 x10 3/uL 0.00-0.03 N code = IG#) LYMPHOCYTE # (test code = LY#) 1.8 K/mm3 0.6-3.2 N MONOCYTE # (test code = MO#) 0.5 K/mm3 0.3-1.1 N EOSINOPHIL # (test code = EO#) 0.3 K/mm3 0.0-0.4 N BASOPHIL # (test code = BA#) 0.0 K/mm3 0.0-0.1 N NUCLEATED RBC # (test code = 0.0 K/mm3 0.0-0.1 N NRBC#) MANUAL DIFF REQUIRED (test code NO DIFF/SCN CRITERIA = MDIFF) THROMBOPLASTIN TIME [id number] 20:59:00 Test Item Value Reference Range Interpretation Comments THROMBOPLASTIN TIME PARTIAL 74.2 SECONDS 26-35 H (test code = PTT) GLUCOSE BEDSIDE [id number] 20:20:00 Test Item Value Reference Range Interpretation Comments GLUCOSE BEDSIDE TESTING (test code 122 mg/dL 70-110 H = GLUBED) GLUCOSE BEDSIDE [id number] 17:18:00 Test Item Value Reference Range Interpretation Comments GLUCOSE BEDSIDE TESTING (test code 117 mg/dL 70-110 H = GLUBED) GLUCOSE BEDSIDE [id number] 11:41:00 Test Item Value Reference Range Interpretation Comments GLUCOSE BEDSIDE TESTING (test code = 96 mg/dL 70-110 N GLUBED) GLUCOSE BEDSIDE [id number] 08:05:00 Test Item Value Reference Range Interpretation Comments GLUCOSE BEDSIDE TESTING (test code 105 mg/dL 70-110 N = GLUBED) CBC W/AUTO [id number] 06:29:00 Test Item Value Reference Range Interpretation Comments WHITE BLOOD CELL (test code = 5.2 K/mm3 3.5-11.0 N WBC) RED BLOOD CELL (test code = 4.42 M/mm3 4.70-6.10 L RBC) HEMOGLOBIN (test code = HGB) 12.3 G/DL 10.4-14.9 N HEMATOCRIT (test code = HCT) 38.9 % 31.5-44.1 N MEAN CELL VOLUME (test code = 88.0 Fl 84.5-98.6 N MCV) MEAN CELL HGB (test code = MCH) 27.8 pg 27.0-34.2 N MEAN CELL HGB CONCETRATION 31.6 G/DL 31.5-34.0 N (test code = MCHC) RED CELL DISTRIBUTION WIDTH 13.6 SD 11.5-14.5 N (test code = RDW) PLATELET COUNT (test code = 190 K/mm3 150-450 N PLT) MEAN PLATELET VOLUME (test code 9.80 fL 7.0-10.5 N = MPV) NEUTROPHIL % (test code = NT%) 54.6 % 40-76 N IMMATURE GRANULOCYTE % (test 0.2 % 0.0-5.0 N code = IG%) LYMPHOCYTE % (test code = LY%) 32.9 % 20.5-51.1 N MONOCYTE % (test code = MO%) 7.2 % 1.7-9.3 N EOSINOPHIL % (test code = EO%) 4.3 % 0.0-6.0 N BASOPHIL % (test code = BA%) 0.8 % 0.0-2.0 N NUCLEATED RBC % (test code = 0.0 /100WBC% 0.0-1.0 N NRBC%) NEUTROPHIL # (test code = NT#) 2.8 K/mm3 1.8-7.6 N IMMATURE GRANULOCYTE # (test 0.01 x10 3/uL 0.00-0.03 N code = IG#) LYMPHOCYTE # (test code = LY#) 1.7 K/mm3 0.6-3.2 N MONOCYTE # (test code = MO#) 0.4 K/mm3 0.3-1.1 N EOSINOPHIL # (test code = EO#) 0.2 K/mm3 0.0-0.4 N BASOPHIL # (test code = BA#) 0.0 K/mm3 0.0-0.1 N NUCLEATED RBC # (test code = 0.0 K/mm3 0.0-0.1 N NRBC#) MANUAL DIFF REQUIRED (test code NO DIFF/SCN CRITERIA = MDIFF) THROMBOPLASTIN TIME [id number] 06:27:00 Test Item Value Reference Range Interpretation Comments THROMBOPLASTIN TIME PARTIAL 46.1 SECONDS 26-35 H (test code = PTT) CBC W/AUTO [id number] 06:25:00 Test Item Value Reference Range Interpretation Comments WHITE BLOOD CELL (test code = WBC) 5.2 K/mm3 3.5-11.0 N RED BLOOD CELL (test code = RBC) 4.42 M/mm3 4.70-6.10 L HEMOGLOBIN (test code = HGB) 12.3 G/DL 10.4-14.9 N HEMATOCRIT (test code = HCT) 38.9 % 31.5-44.1 N MEAN CELL VOLUME (test code = MCV) 88.0 Fl 84.5-98.6 N MEAN CELL HGB (test code = MCH) 27.8 pg 27.0-34.2 N MEAN CELL HGB CONCETRATION (test 31.6 G/DL 31.5-34.0 N code = MCHC) RED CELL DISTRIBUTION WIDTH (test SD 11.5-14.5 N code = RDW) PLATELET COUNT (test code = PLT) 190 K/mm3 150-450 N MEAN PLATELET VOLUME (test code = fL 7.0-10.5 N MPV) NEUTROPHIL % (test code = NT%) % 40-76 N IMMATURE GRANULOCYTE % (test code % 0.0-5.0 N = IG%) LYMPHOCYTE % (test code = LY%) % 20.5-51.1 N MONOCYTE % (test code = MO%) % 1.7-9.3 N EOSINOPHIL % (test code = EO%) % 0.0-6.0 N BASOPHIL % (test code = BA%) % 0.0-2.0 N NUCLEATED RBC % (test code = /100WBC% 0.0-1.0 N NRBC%) NEUTROPHIL # (test code = NT#) K/mm3 1.8-7.6 N IMMATURE GRANULOCYTE # (test code x10 3/uL 0.00-0.03 N = IG#) LYMPHOCYTE # (test code = LY#) K/mm3 0.6-3.2 N MONOCYTE # (test code = MO#) K/mm3 0.3-1.1 N EOSINOPHIL # (test code = EO#) K/mm3 0.0-0.4 N BASOPHIL # (test code = BA#) K/mm3 0.0-0.1 N NUCLEATED RBC # (test code = K/mm3 0.0-0.1 N NRBC#) MANUAL DIFF REQUIRED (test code = DIFF/SCN CRITERIA MDIFF) THROMBOPLASTIN TIME [id number] 22:38:00 Test Item Value Reference Range Interpretation Comments THROMBOPLASTIN TIME PARTIAL 155.1 SECONDS 26-35 HH (test code = PTT) GLUCOSE BEDSIDE [id number] 20:22:00 Test Item Value Reference Range Interpretation Comments GLUCOSE BEDSIDE TESTING (test code 142 mg/dL 70-110 H = GLUBED) THROMBOPLASTIN TIME [id number] 16:44:00 Test Item Value Reference Range Interpretation Comments THROMBOPLASTIN TIME PARTIAL 88.2 SECONDS 26-35 H (test code = PTT) GLUCOSE BEDSIDE [id number] 15:59:00 Test Item Value Reference Range Interpretation Comments GLUCOSE BEDSIDE TESTING (test code 111 mg/dL 70-110 H = GLUBED) - DUP VEIN [id number] 15:55:00 [facility] 1965 Sex: F Name: EMILY ARRINGTON [facility] : 1965 Age/S: 55 / F [address] Unit #: [id number] Loc: [place] [address] Phys: Arsen Carballo MD Acct: [id number] Dis Date: Status: ADM IN PHONE #: [phone] Exam Date: 04/18/2020 6088 FAX #: Reason: R/O DVT EXAMS: CPT: [id number] DUP VEIN ANT 04974 Exam:Bilateral lower extremity duplex venous ultrasound Location: S17 Clinical Indication:55-year-old with tenderness and PE Comparison:None Findings:Duplex ultrasound of the lower extremity veins was performed,including grayscale, color-flow, and spectral waveform analysis. There is lack of compressibility and increased intraluminal echogenicity within the popliteal vein, consistent with nonocclusive DVT. The thrombus extends down into the posterior tibial vein in the calf. The right superficial femoral andcommon femoral veins are patent. No evidence of DVT in the left lower extremity. Impression: Acute DVT of the right popliteal vein and posterior tibial vein. Findings discussed with Dr. Carballo at 1554 hours. at 1555 Reported and signed by: Liang Duong M.D. CC: Arsen Carballo MD Technologist: Rashmi Pierce Trnsdb Date/Time: 04/18/2020 (3675) [email or web address] PAGE 1 Signed Report Name: EMILY ARRINGTON [place] : 1965 Age/S:55 / F [id number] Unit #: [id number] Loc: [place] [address] Phys: Arsen Carballo MD Acct: [id number] Dis Date: Status: ADM IN PHONE #: [phone] Exam Date: 04/18/2020 1530 FAX #: Reason: R/O DVT EXAMS: CPT: [id number] DUP VEIN ANT [id number] (Continued) Orig Print D/T: S: 04/18/2020 (0026) Probe: PAGE 2 Signed Report GLUCOSE BEDSIDE [id number] 11:04:00 Test Item Value Reference Range Interpretation Comments GLUCOSE BEDSIDE TESTING (test code 123 mg/dL 70-110 H = GLUBED) THROMBOPLASTIN TIME [id number] 10:36:00 Test Item Value Reference Range Interpretation Comments THROMBOPLASTIN TIME PARTIAL 205.8 SECONDS 26-35 HH (test code = PTT) GLUCOSE BEDSIDE [id number] 08:11:00 Test Item Value Reference Range Interpretation Comments GLUCOSE BEDSIDE TESTING (test code 110 mg/dL 70-110 N = GLUBED) GLYCOSYLATED HEMOGLOBIN [id number] 04:31:00 Test Item Value Reference Range Interpretation Comments GLYCOSYLATED HEMOGLOBIN (HA1C) 6.2 % A1C 0.0-5.7 H (test code = GLYHGB) ESTIMATED AVERAGE GLUCOSE (test 131 MG/DLest code = EAG) THROMBOPLASTIN TIME [id number] 04:06:00 Test Item Value Reference Range Interpretation Comments THROMBOPLASTIN TIME PARTIAL >400 SECONDS 26-35 HH (test code = PTT) CBC W/AUTO [id number] 03:48:00 Test Item Value Reference Range Interpretation Comments WHITE BLOOD CELL (test code = 6.8 K/mm3 3.5-11.0 N WBC) RED BLOOD CELL (test code = 4.41 M/mm3 4.70-6.10 L RBC) HEMOGLOBIN (test code = HGB) 12.3 G/DL 10.4-14.9 N HEMATOCRIT (test code = HCT) 38.5 % 31.5-44.1 N MEAN CELL VOLUME (test code = 87.3 Fl 84.5-98.6 N MCV) MEAN CELL HGB (test code = MCH) 27.9 pg 27.0-34.2 N MEAN CELL HGB CONCETRATION 31.9 G/DL 31.5-34.0 N (test code = MCHC) RED CELL DISTRIBUTION WIDTH 13.8 SD 11.5-14.5 N (test code = RDW) PLATELET COUNT (test code = 191 K/mm3 150-450 N PLT) MEAN PLATELET VOLUME (test code 10.00 fL 7.0-10.5 N = MPV) NEUTROPHIL % (test code = NT%) 52.5 % 40-76 N IMMATURE GRANULOCYTE % (test 0.3 % 0.0-5.0 N code = IG%) LYMPHOCYTE % (test code = LY%) 36.0 % 20.5-51.1 N MONOCYTE % (test code = MO%) 8.0 % 1.7-9.3 N EOSINOPHIL % (test code = EO%) 2.8 % 0.0-6.0 N BASOPHIL % (test code = BA%) 0.4 % 0.0-2.0 N NUCLEATED RBC % (test code = 0.0 /100WBC% 0.0-1.0 N NRBC%) NEUTROPHIL # (test code = NT#) 3.5 K/mm3 1.8-7.6 N IMMATURE GRANULOCYTE # (test 0.02 x10 3/uL 0.00-0.03 N code = IG#) LYMPHOCYTE # (test code = LY#) 2.4 K/mm3 0.6-3.2 N MONOCYTE # (test code = MO#) 0.5 K/mm3 0.3-1.1 N EOSINOPHIL # (test code = EO#) 0.2 K/mm3 0.0-0.4 N BASOPHIL # (test code = BA#) 0.0 K/mm3 0.0-0.1 N NUCLEATED RBC # (test code = 0.0 K/mm3 0.0-0.1 N NRBC#) MANUAL DIFF REQUIRED (test code NO DIFF/SCN CRITERIA = MDIFF) GLUCOSE BEDSIDE [id number] 20:41:00 Test Item Value Reference Range Interpretation Comments GLUCOSE BEDSIDE TESTING (test code 126 mg/dL 70-110 H = GLUBED) THROMBOPLASTIN TIME [id number] 18:25:00 Test Item Value Reference Range Interpretation Comments THROMBOPLASTIN TIME PARTIAL 41.3 SECONDS 26-35 H (test code = PTT) CBC W/AUTO [id number] 18:25:00 Test Item Value Reference Range Interpretation Comments WHITE BLOOD CELL (test code = 6.8 K/mm3 3.5-11.0 N WBC) RED BLOOD CELL (test code = 4.61 M/mm3 4.70-6.10 L RBC) HEMOGLOBIN (test code = HGB) 13.0 G/DL 10.4-14.9 N HEMATOCRIT (test code = HCT) 39.6 % 31.5-44.1 N MEAN CELL VOLUME (test code = 85.9 Fl 84.5-98.6 N MCV) MEAN CELL HGB (test code = MCH) 28.2 pg 27.0-34.2 N MEAN CELL HGB CONCETRATION 32.8 G/DL 31.5-34.0 N (test code = MCHC) RED CELL DISTRIBUTION WIDTH 13.7 SD 11.5-14.5 N (test code = RDW) PLATELET COUNT (test code = 236 K/mm3 150-450 N PLT) MEAN PLATELET VOLUME (test code 10.00 fL 7.0-10.5 N = MPV) NEUTROPHIL % (test code = NT%) 53.9 % 40-76 N IMMATURE GRANULOCYTE % (test 0.3 % 0.0-5.0 N code = IG%) LYMPHOCYTE % (test code = LY%) 36.7 % 20.5-51.1 N MONOCYTE % (test code = MO%) 6.8 % 1.7-9.3 N EOSINOPHIL % (test code = EO%) 1.9 % 0.0-6.0 N BASOPHIL % (test code = BA%) 0.4 % 0.0-2.0 N NUCLEATED RBC % (test code = 0.0 /100WBC% 0.0-1.0 N NRBC%) NEUTROPHIL # (test code = NT#) 3.6 K/mm3 1.8-7.6 N IMMATURE GRANULOCYTE # (test 0.02 x10 3/uL 0.00-0.03 N code = IG#) LYMPHOCYTE # (test code = LY#) 2.5 K/mm3 0.6-3.2 N MONOCYTE # (test code = MO#) 0.5 K/mm3 0.3-1.1 N EOSINOPHIL # (test code = EO#) 0.1 K/mm3 0.0-0.4 N BASOPHIL # (test code = BA#) 0.0 K/mm3 0.0-0.1 N NUCLEATED RBC # (test code = 0.0 K/mm3 0.0-0.1 N NRBC#) MANUAL DIFF REQUIRED (test code NO DIFF/SCN CRITERIA = MDIFF) [id number] 18:15:00 Test Item Value Reference Range Interpretation Comments HEMATOCRIT (test code = HCT) 39.9 % 31.5-44.1 N PLATELET [id number] 18:15:00 Test Item Value Reference Range Interpretation Comments PLATELET COUNT (test code = PLT) 219 K/mm3 150-450 N BASIC METABOLIC [id number] 13:09:00 Test Item Value Reference Range Interpretation Comments SODIUM (test code = NA) 139 mmol/L 134-147 N POTASSIUM (test code = 3.1 mmol/L 3.4-5.0 L K) CHLORIDE (test code = 104 mmol/L 100-108 N CL) CARBON DIOXIDE (test 30 mmol/L 21-32 N code = CO2) ANION GAP (test code = 5.0 GAP calc 4.0-15.0 N GAP) GLUCOSE (test code = 167 MG/DL 70-110 H GLU) BLOOD UREA NITROGEN 15 MG/DL 7-18 N (test code = BUN) GLOMERULAR FILTRATION >=60 max estimate >60 RATE (test code = GFR) estGFR CREATININE (test code = 1.0 MG/DL 0.6-1.0 N CREAT) CALCIUM (test code = CA) 9.1 MG/DL 8.5-10.1 N PROTHROMBIN [id number] 13:04:00 Test Item Value Reference Range Interpretation Comments PT PATIENT (test code = PTP) 13.9 SECONDS 9.3-12.9 H INTERNATIONAL NORMAL RATIO 1.23 INR Unit 0.8-1.2 H (test code = INR) THROMBOPLASTIN TIME [id number] 13:04:00 Test Item Value Reference Range Interpretation Comments THROMBOPLASTIN TIME PARTIAL 44.8 SECONDS 26-35 H (test code = PTT)
[2023-02-18] MEDS ORDERED: MORPHINE 4 MG/ML SYR ONE (02:24)
[2023-02-18] MEDS ORDERED: DIAZEPAM 5 MG TABLET ONE (02:24)
[2023-02-18] MEDS ORDERED: ONDANSETRON 4 MG/2 ML VIAL ONE (02:25)
[2023-02-18] MEDS ORDERED: NA CHLORIDE 0.9% 500 ML ONE (02:25)
[2023-02-18] MEDS ORDERED: dexAMETHasone 10 MG/ML VIAL ONE (02:25)
[2023-02-18 02:31] LABS: Absolute Lymphocytes (CBC) 1.5 K/uL (0.7-4.9); Hematocrit 33.9 % (36.0-45.0); Lymphocytes % 15.7 % (15.3-44.8); MCV 89.2 fL (80-100); MPV 7.4 fL (7.6-11.3); Platelets 277 thou/uL (152-406)
[2023-02-18 02:34] LABS: Protime INR 2.03
[2023-02-18 03:03] LABS: Albumin 3.2 g/dL (3.4-5.0); Bilirubin Total 1.2 mg/dL (0.2-1.0); Potassium 3.3 mEq/L (3.5-5.1); Protein, Total 7.8 g/dL (6.4-8.2)
[2023-02-18] MEDS ORDERED: POTASSIUM 25 MEQ EFFERV TAB ONE (03:39)
--- NOTE | 2023-02-18 03:59 | ER ---
Nurse's Notes [facility] Name: Isabel Mccabe Age: 58 yrs Sex: Female : 1965 Arrival Date: 02/18/2023 Time: 01:37 Bed 19 Private MD: Diagnosis: Low back pain;Other injury of muscle, fascia and tendon of lower back;Pain in left hip;FCI (current) use of anticoagulants;Hypokalemia;Obesity, unspecified;Anemia, unspecified Presentation: 02/18 01:40 Chief complaint: EMS states: 58 YEAR OLD FEMALE REPORTS PAIN ON THE LEFT HIP SINCE ha1 YESTERDAY. DENIES FALLING. Coronavirus screen: Vaccine status: Patient reports receiving the 2nd dose of the covid vaccine. [employer]. Ebola Screen: No symptoms or risks identified at this time. Initial Sepsis Screen: Does the patient meet any 2 criteria? No. Patient's initial sepsis screen is negative. Does the patient have a suspected source of infection? No. Patient's initial sepsis screen is negative. Risk Assessment: Do you want to hurt yourself or someone else? Patient reports no desire to harm self or others. Onset of symptoms was February 18, 2023. 01:40 Method Of Arrival: EMS: [facility] ha1 01:40 Acuity: PRADIP 3 ha1 Triage Assessment: 01:40 General: Appears uncomfortable, Behavior is calm, cooperative. Pain: Complains of pain ha1 in left hip Pain does not radiate. Pain currently is 10 out of 10 on a pain scale. Quality of pain is described as throbbing, Pain began 1 day ago. Neuro: Level of Consciousness is awake, alert, obeys commands, Oriented to person, place, time, situation. Cardiovascular: Patient's skin is warm and dry. Respiratory: Airway is patent Respiratory effort is even, unlabored, Respiratory pattern is regular, symmetrical. GI: No signs and/or symptoms were reported involving the gastrointestinal system. : No signs and/or symptoms were reported regarding the genitourinary system. Derm: Skin is moist, Skin is normal. Musculoskeletal: Circulation, motion, and sensation intact. Range of motion: limited in left hip. Historical: - Allergies: :45 No Known Allergies; ha1 - PMHx: :45 Hypertensive disorder; Arthritis; ha1 - Immunization history:: Adult Immunizations up to date. - Social history:: Smoking status: Patient denies any tobacco usage or history of. - Family history:: not pertinent. Screenin:40 [facility] ED Fall Risk Assessment (Adult) History of falling in the last 3 months, ha1 including since admission No falls in past 3 months (0 pts) Confusion or Disorientation No (0 pts) Intoxicated or Sedated No (0 pts) Impaired Gait No (0 pts) Mobility Assist Device Used Yes (1 pt) Altered Elimination No (0 pt) Score/Fall Risk Level 3 or more points = High Risk Oriented to surroundings, Maintained a safe environment, Educated pt \T\ family on fall prevention, incl call for assistance when getting out of bed. Abuse screen: Denies threats or abuse. Nutritional screening: No deficits noted. On. Tuberculosis screening: No symptoms or risk factors identified. Assessment: 01:40 Reassessment: see triage assessment. ha1 02:40 Reassessment: Patient and/or family updated on plan of care and expected duration. Pain ha1 level reassessed. Patient is alert, oriented x 3, equal unlabored respirations, skin warm/dry/pink. 03:40 Reassessment: Patient and/or family updated on plan of care and expected duration. Pain ha1 level reassessed. Patient is alert, oriented x 3, equal unlabored respirations, skin warm/dry/pink. 04:30 Reassessment: Patient and/or family updated on plan of care and expected duration. Pain ha1 level reassessed. Patient is alert, oriented x 3, equal unlabored respirations, skin warm/dry/pink. Vital Signs: 01:40 BP 118 / 65; Pulse 97; Resp 20 S; Temp 98.9(O); Pulse Ox 100% on R/A; Weight 123.83 kg; ha1 Height 5 ft. 5 in. ; 02:40 BP 115 / 80; Pulse 78; Resp 18 S; Pulse Ox 100% on R/A; ha1 03:40 BP 109 / 79; Pulse 84; Resp 16 S; Pulse Ox 100% on R/A; ha1 04:30 BP 104 / 78; Pulse 82; Resp 17 S; Pulse Ox 100% on R/A; ha1 01:40 Body Mass Index 45.43 (123.83 kg, 165.1 cm) ha1 ED Course: 01:40 Patient arrived in ED. ha1 01:40 Concepción Juarez RN is Primary Nurse. ha1 01:40 Arm band placed on right wrist. ha1 01:40 Patient has correct armband on for positive identification. Placed in gown. Bed in low ha1 position. Call light in reach. Side rails up X 1. 01:45 Triage completed. ha1 01:47 Shviam Omer MD is Attending Physician. laura 01:55 Inserted saline lock: 22 gauge in left antecubital area, using aseptic technique. Blood ha1 collected. 03:22 Hip Left 2 View In Process Unspecified. EDMS 03:23 Pelvis In Process Unspecified. EDMS 03:27 Spine Lumbar Wo Con In Process Unspecified. EDMS 03:57 Blair Kraus MD is Referral Physician. [facility] 04:33 Provided Education on: follow up with neurology . ha1 04:33 No provider procedures requiring assistance completed. IV discontinued, intact, ha1 bleeding controlled, No redness/swelling at site. Pressure dressing applied. Administered Medications: 02:08 Drug: NS 0.9% IV 500 ml IV at bolus once Route: IV; Rate: bolus; Site: left antecubital;ha1 04:32 Follow up: Response: No adverse reaction; IV Status: Completed infusion; IV Intake: ha1 500ml 02:08 Drug: Ondansetron IVP 4 mg IVP once; over 2 minutes Route: IVP; Site: left antecubital; ha1 02:10 Drug: morphine IVP or IV 4 mg IVP once over 4 mins Route: IVP; Infused Over: 4 mins; ha1 Site: left antecubital; 02:40 Follow up: Response: No adverse reaction; Pain is decreased; RASS: Alert and Calm (0) ha1 02:10 Drug: Diazepam PO 5 mg PO once Route: PO; ha1 03:00 Follow up: Response: No adverse reaction; Anxiety decreased ha1 02:12 Drug: Decadron - Dexamethasone IVP 10 mg IVP once Route: IVP; Site: left antecubital; ha1 03:00 Follow up: Response: No adverse reaction ha1 03:15 Drug: Potassium PO Effervescent Tablet 25 mEq PO once; dissolve in 4 ounces of water or ha1 juice Route: PO; 04:31 Follow up: Response: No adverse reaction ha1 Medication: 01:50 VIS not applicable for this client. ha1 Intake: 04:32 IV: 500ml; Total: 500ml. ha1 Outcome: 03:58 Discharge ordered by . laura 04:33 Discharged to home via wheelchair, ha1 04:33 Condition: stable 04:33 Discharge instructions given to patient, Instructed on discharge instructions, follow up and referral plans. medication usage, Demonstrated understanding of instructions, follow-up care, medications, Prescriptions given X 3, 04:34 Patient left the ED. ha1 Signatures: Dispatcher [employer] EDMS Shivam Omer MD MD cha Ayala, Heidy RN RN ha1
--- NOTE | 2023-02-18 03:59 | EDPHYS ---
Physician Documentation [facility] Name: Isabel Mccabe Age: 58 yrs Sex: Female : 1965 Arrival Date: 02/18/2023 Time: 01:37 Bed 19 Private MD: JORGE ALBERTO Physician Shivam Omer HPI: 02/18 02:01 This 58 yrs old Black Female presents to ER via EMS with complaints of low back, left laura hip pain. 02:01 The patient or guardian reports pain. that occurred at an unknown site, sustained from laura unknown reason, There is no obvious deformity, The patient is able to self ambulate. The patient is able to bear their full body weight. The patient's discomfort radiates to the left low back. The complaints affect the left low back. Onset: The symptoms/episode began/occurred 2 day(s) ago. Modifying factors: The symptoms are alleviated by nothing, remaining still, the symptoms are aggravated by nothing. The patient presents with pain that is acute. The symptoms are located in the left low back. Onset: The symptoms/episode began/occurred 2 day(s) ago. The pain radiates to the left low back. Associated signs and symptoms: The patient has no apparent associated signs or symptoms. The problem was sustained from unknown cause. Modifying factors: The patient symptoms are alleviated by nothing, remaining still, the patient symptoms are aggravated by any movement. Severity of symptoms: At their worst the symptoms were mild, in the emergency department the symptoms are unchanged. Associated signs and symptoms: Loss of consciousness: the patient experienced no loss of consciousness. Historical: - Allergies: 01:45 No Known Allergies; ha1 - PMHx: 01:45 Hypertensive disorder; Arthritis; ha1 - Immunization history:: Adult Immunizations up to date. - Social history:: Smoking status: Patient denies any tobacco usage or history of. - Family history:: not pertinent. ROS: 02:01 Constitutional: Negative for fever, chills, and weight loss, Eyes: Negative for injury, laura pain, redness, and discharge, ENT: Negative for injury, pain, and discharge, Neck: Negative for injury, pain, and swelling, Cardiovascular: Negative for chest pain, palpitations, and edema, Respiratory: Negative for shortness of breath, cough, wheezing, and pleuritic chest pain, Abdomen/GI: Negative for abdominal pain, nausea, vomiting, diarrhea, and constipation, : Negative for injury, bleeding, discharge, and swelling, MS/Extremity: Negative for injury and deformity, Skin: Negative for injury, rash, and discoloration, Neuro: Negative for headache, weakness, numbness, tingling, and seizure, Psych: Negative for depression, anxiety, suicide ideation, homicidal ideation, and hallucinations, Allergy/Immunology: Negative for hives, rash, and allergies, Endocrine: Negative for neck swelling, polydipsia, polyuria, polyphagia, and marked weight changes, Hematologic/Lymphatic: Negative for swollen nodes, abnormal bleeding, and unusual bruising, 02:01 Back: Positive for injury or acute deformity, of the left low back, Exam: 02:01 Constitutional: This is a well developed, well nourished patient who is awake, alert, laura and in no acute distress. Head/Face: Normocephalic, atraumatic. Eyes: Pupils equal round and reactive to light, extra-ocular motions intact. Lids and lashes normal. Conjunctiva and sclera are non-icteric and not injected. Cornea within normal limits. Periorbital areas with no swelling, redness, or edema. ENT: Nares patent. No nasal discharge, no septal abnormalities noted. Tympanic membranes are normal and external auditory canals are clear. Oropharynx with no redness, swelling, or masses, exudates, or evidence of obstruction, uvula midline. Mucous membranes moist. Neck: Trachea midline, no thyromegaly or masses palpated, and no cervical lymphadenopathy. Supple, full range of motion without nuchal rigidity, or vertebral point tenderness. No Meningismus. Chest/axilla: Normal chest wall appearance and motion. Nontender with no deformity. No lesions are appreciated. Cardiovascular: Regular rate and rhythm with a normal S1 and S2. No gallops, murmurs, or rubs. Normal PMI, no JVD. No pulse deficits. Respiratory: Lungs have equal breath sounds bilaterally, clear to auscultation and percussion. No rales, rhonchi or wheezes noted. No increased work of breathing, no retractions or nasal flaring. Abdomen/GI: Soft, non-tender, with normal bowel sounds. No distension or tympany. No guarding or rebound. No evidence of tenderness throughout. Female : Normal external genitalia. Skin: Warm, dry with normal turgor. Normal color with no rashes, no lesions, and no evidence of cellulitis. MS/ Extremity: Pulses equal, no cyanosis. Neurovascular intact. Full, normal range of motion. Neuro: Awake and alert, GCS 15, oriented to person, place, time, and situation. Cranial nerves II-XII grossly intact. Motor strength 5/5 in all extremities. Sensory grossly intact. Cerebellar exam normal. Normal gait. Psych: Awake, alert, with orientation to person, place and time. Behavior, mood, and affect are within normal limits. 02:01 Back: pain, that is mild, that is moderate, ROM is painful, normal spinal alignment noted, CVA tenderness, is absent, muscle spasm, is not present, Vital Signs: 01:40 BP 118 / 65; Pulse 97; Resp 20 S; Temp 98.9(O); Pulse Ox 100% on R/A; Weight 123.83 kg; ha1 Height 5 ft. 5 in. ; 02:40 BP 115 / 80; Pulse 78; Resp 18 S; Pulse Ox 100% on R/A; ha1 03:40 BP 109 / 79; Pulse 84; Resp 16 S; Pulse Ox 100% on R/A; ha1 04:30 BP 104 / 78; Pulse 82; Resp 17 S; Pulse Ox 100% on R/A; ha1 01:40 Body Mass Index 45.43 (123.83 kg, 165.1 cm) ha1 MDM: 01:47 Patient medically screened. laura 02:04 Differential diagnosis: bursitis, arthritis, strain, arthritis, chronic back pain, laura Fatigue Fracture Metastatic Disease Neoplasm Osteoarthritis. Data reviewed: vital signs, nurses notes, lab test result(s), radiologic studies, CT scan, plain films. Consideration of Admission/Observation Escalation of care including admission/observation considered. I considered the following discharge prescriptions or medication management in the emergency department Medications were administered in the Emergency Department. See MAR. Independent interpretation of the following test(s) in the Emergency Department X-Ray: My interpretation is pelvis, left hip. Test considered but Not performed: MRI: no mri spine. Historians other than the Patient: pt well informed. Care significantly affected by the following chronic conditions: Hypertension, Obesity, oa. Counseling: I had a detailed discussion with the patient and/or guardian regarding the historical points, exam findings, and any diagnostic results supporting the discharge/admit diagnosis, lab results, radiology results, the need for outpatient follow up, for definitive care, a family practitioner, a neurologist. 02/18 02:23 Order name: Comprehensive Metabolic Panel; Complete Time: 03:07 EDIN 02/18 02:23 Order name: CBC with Automated Diff; Complete Time: 03:07 EDIN 02/18 02:23 Order name: Protime (+INR); Complete Time: 02:49 EDIN 02/18 02:28 Order name: Hip Left 2 View EDMS 02/18 02:29 Order name: Pelvis EDMS 02/18 02:38 Order name: Spine Lumbar Wo Con EDMS Administered Medications: 02:08 Drug: NS 0.9% IV 500 ml IV at bolus once Route: IV; Rate: bolus; Site: left antecubital;ha1 04:32 Follow up: Response: No adverse reaction; IV Status: Completed infusion; IV Intake: ha1 500ml 02:08 Drug: Ondansetron IVP 4 mg IVP once; over 2 minutes Route: IVP; Site: left antecubital; ha1 02:10 Drug: morphine IVP or IV 4 mg IVP once over 4 mins Route: IVP; Infused Over: 4 mins; ha1 Site: left antecubital; 02:40 Follow up: Response: No adverse reaction; Pain is decreased; RASS: Alert and Calm (0) ha1 02:10 Drug: Diazepam PO 5 mg PO once Route: PO; ha1 03:00 Follow up: Response: No adverse reaction; Anxiety decreased ha1 02:12 Drug: Decadron - Dexamethasone IVP 10 mg IVP once Route: IVP; Site: left antecubital; ha1 03:00 Follow up: Response: No adverse reaction ha1 03:15 Drug: Potassium PO Effervescent Tablet 25 mEq PO once; dissolve in 4 ounces of water or ha1 juice Route: PO; 04:31 Follow up: Response: No adverse reaction ha1 Disposition Summary: 02/18/23 03:58 Discharge Ordered Notes: Location: Home laura Problem: new laura Symptoms: have improved laura Condition: Stable laura Diagnosis - Low back pain laura - Other injury of muscle, fascia and tendon of lower back laura - Pain in left hip laura - snf (current) use of anticoagulants laura - Hypokalemia laura - Obesity, unspecified laura - Anemia, unspecified laura Followup: laura - With: Private Physician - When: 2 - 3 days - Reason: Recheck today's complaints, Continuance of care, Re-evaluation by your physician Followup: laura - With: Blair Kraus MD - When: 2 - 3 days - Reason: Recheck today's complaints, Re-evaluation by your physician Discharge Instructions: - Discharge Summary Sheet laura - Anemia laura - Joint Pain laura - Acute Back Pain, Adult laura - Chronic Back Pain laura - Potassium Content of Foods laura - Musculoskeletal Pain laura - Chronic Back Pain, [id number] laura - Hip Pain laura - Atrial Fibrillation, [id number] laura - Hypokalemia [facility] Forms: - Medication Reconciliation Form [facility] - Thank You Letter [facility] - Antibiotic Education laura - Prescription Opioid Use laura - Patient Portal Instructions [facility] - Leadership Thank You Letter laura Prescriptions: - acetaminophen-codeine 300-30 mg Oral tablet - take 2 tablet ORAL route every 6 hours; 20 tablet; Refills: 0, Product [facility] Selection Permitted - dexamethasone 2 mg Oral tablet - take 1.5 tablet ORAL route every 12 hours; 10 tablet; Refills: 0, Product [facility] Selection Permitted - Valium 5 mg Oral Tablet - take 1 tablet ORAL route every 8 hours As needed; 20 tablet; Refills: 0, [facility] Product Selection Permitted Signatures: Dispatcher [employer] Shivam Cifuentes MD MD cha Ayala, Heidy RN RN ha1 Corrections: (The following items were deleted from the chart) 02:37 02:31 CT-SPINE LUMBAR W/O CONTRAST ordered. EDSON SANDHU
[2023-02-18 04:49] VITALS: TEMP 98.9; O2SAT 100
[2023-02-18 05:07] VITALS: BP 104/78
--- NOTE | 2023-02-18 14:17 | RAD REPORT ---
EXAM DESCRIPTION: XR Pelvis, 1 View CLINICAL HISTORY: Fall TECHNIQUE: Frontal view of the pelvis. COMPARISON: No relevant prior studies available. FINDINGS: Bones/joints: No acute fracture. Mild degenerative changes at the hip joints bilateral ly. Moderate degenerative changes at the lower lumbar spine. No dislocation. Soft tissues: Unremarkable. * A single impression for all exams can be found at the end of this report EXAM DESCRIPTION: XR Left Hip, 2 Views CLINICAL HISTORY: Fall TECHNIQUE: Two views of the left hip. COMPARISON: No relevant prior studies available. FINDINGS: Bones/joints: No acute fracture. Mild degenerative changes. No dislocation. Soft tissues: Unremarkable. * A single impression for all exams can be found at the end of this report IMPRESSION: XR Pelvis, 1 View: No acute injury. XR Left Hip, 2 Views: No acute injury. Electronically signed by: Michelle Gold MD 02/18/2023 3:37 AM CDT Due to temporary technical issues with the PACS/Fluency reporting system, reports are being signed by the in house radiologists without review as a courtesy to insure prompt reporting. The interpreting radiologist is fully responsible for the content of the report.
--- NOTE | 2023-02-18 14:19 | RAD REPORT ---
EXAM DESCRIPTION: CT Lumbar Spine Without Intravenous Contrast CLINICAL HISTORY: Fall TECHNIQUE: Axial computed tomography images of the lumbar spine without intravenous contrast. Sagi ttal and coronal reformatted images were created and reviewed. This CT exam was performed using one or more of the following dose reduction techniques: automated exposure control, adjustment of the mA and/or kV according to patient size, and/or use of iterative reconstruction technique. COMPARISON: No relevant prior studies available. FINDINGS: Vertebrae: There are 5 nonrib-bearing lumbar-type vertebral bodies. No acute fracture or subluxation. Discs/spinal canal/neural foramina: Mild to moderate multilevel disc degeneration most pronounced a t L5-S1 with vacuum disc phenomenon. Small to moderate multilevel anterior and lateral disc osteoph ytes. Mild multilevel broad-based disc bulges. Moderate to severe multilevel facet arthropathy. The central thecal sac is mildly narrowed at multiple levels. No critical canal stenosis. Soft tissues: Unremarkable. IMPRESSION: No acute injury. Electronically signed by: Michelle Gold MD 02/18/2023 3:44 AM CDT Due to temporary technical issues with the PACS/Fluency reporting system, reports are being signed by the in house radiologists without review as a courtesy to insure prompt reporting. The interpreting radiologist is fully responsible for the content of the report.
--- NOTE | 2023-02-18 14:51 | RAD REPORT ---
EXAM DESCRIPTION: XR Pelvis, 1 View CLINICAL HISTORY: Fall TECHNIQUE: Frontal view of the pelvis. COMPARISON: No relevant prior studies available. FINDINGS: Bones/joints: No acute fracture. Mild degenerative changes at the hip joints bilateral ly. Moderate degenerative changes at the lower lumbar spine. No dislocation. Soft tissues: Unremarkable. * A single impression for all exams can be found at the end of this report EXAM DESCRIPTION: XR Left Hip, 2 Views CLINICAL HISTORY: Fall TECHNIQUE: Two views of the left hip. COMPARISON: No relevant prior studies available. FINDINGS: Bones/joints: No acute fracture. Mild degenerative changes. No dislocation. Soft tissues: Unremarkable. * A single impression for all exams can be found at the end of this report IMPRESSION: XR Pelvis, 1 View: No acute injury. XR Left Hip, 2 Views: No acute injury. Electronically signed by: Michelle Gold MD 02/18/2023 3:37 AM CDT Due to temporary technical issues with the PACS/Fluency reporting system, reports are being signed by the in house radiologists without review as a courtesy to insure prompt reporting. The interpreting radiologist is fully responsible for the content of the report.
== END 2023-02-18 04:34 | disposition home or self-care (01) ==
LOC: ER 01:37
DX: S39.092A Other injury of muscle, fascia and tendon of lower back, initial encounter (principal); M25.552 Pain in left hip; E87.6 Hypokalemia; D64.9 Anemia, unspecified; E66.9 Obesity, unspecified; Z68.42 Body mass index [BMI] 45.0-49.9, adult; Z79.01 Long term (current) use of anticoagulants; I10 Essential (primary) hypertension
CPT/HCPCS: 96361; 85025; 36415; 85610; 80053; 72131; 72170; 73502; 96375; 96374; 99284; J1100; J2405; J7040

== ENCOUNTER 2023-04-02 04:14 | Emergency (ER) | payer OTHER ==
--- OUTSIDE RECORDS SUMMARY | 2023-04-02 04:18 | XMS REPORT | Clinical Summary ---
:1965 Author Organization [facility] MD [facility] Address [address] [place] [address] Care Team Providers Name Role Phone Shree Cardoso MD Unavailable Rosibel Mcdonald MD Unavailable Unavailable Jasmin Hugo MD Primary Care Provider Tomás Dykes MD Unavailable Ariella Hopkins MD Unavailable [phone] Allergies No known active allergies Medications Medication [...] EVERY DAY Active Problems Problem Noted Date Diagnosed Date Endometrium thickened 06/16/2019 Postmenopausal bleeding 09/28/2018 Morbid obesity 09/27/2018 Dysfunctional uterine bleeding 09/27/2018 Hypertension 09/27/2018 Encounters Date Type Department Care Team Description 02/22/2023 Orders Only MD Omer in [facility] Endo metrium thickened (Primary Dx); Mariann - Gynecology MD Alexi Postmenopausal bleeding [address] [place] [address] 02/10/2023 Orders Only MD Omer in [facility] Dilan, Pos tmenopausal bleeding [facility] - Breast Surgery KRISTIE Resendez (Prima ry Dx) Oncology [address] [place] [address] 05/29/2022 Orders Only MD Omer in [facility] - Breast Surgery KRISTIE Resendez Oncology [address] [place] [address] after 04/02/2022 Surgical History Surgery Date Site/Laterality Comments STOMACH [...] oz pure alcoho l) Occasional drinker Sex and Gender Information Value Date Recorded Sex Assigned at Not on file Gender Identity Not on file Sexual Orientation Not on file Job Start Date Occupation Industry Not on file Not on file Not on file Obstetrics History Para Term AB IAB SAB Ectopic Multiple Living Live Births 1 1 1 1 Date Outcome GA Total Labor/2nd/3rd Weight Sex Delivery Anes PTL Chitra A 1 A5 Name Clin Labor Term Comments Normal vaginal delivery Last Filed Vital Signs Not on file Plan of Treatment Date Type Department Care Team Description 04/07/2023 7:45 Ancillary Procedure Jorge Elder AM ASHELY Truong MD [address] [facility] [address] [id number] 04/07/2023 Ancillary Procedure Jasmin Elder 10:00 AM ASHELY Truong MD [address] [facility] [address] [id number] 04/09/2023 Consult MD Omer in [facility]asmin [place] 10:00 AM [facility] Mariann - Gynecology MD Alexi [address] [facility] [address] [place] [address] [place], [place] [phone] [facility] Health Maintenance Due Date Last Done Comments COVID-19 Vaccination ( season) 01/29/20232020, 08/17/2020 Results Not on fileafter 04/02/2022 Insurance Payer Benefit Plan / Subscriber ID Effective Dates Phone Addre ss Type Group [employer] MANAGED CIGNA HMO POS [id number] 2016-Present [id number] [place] [address] Care Teams Steamer Blocker Relationship Specialty Start Date End Date Shree Cardoso PCP - External Obstetrics/Gynecology 09/22/18 MD Omero Referring [address] [place] [address] Rosibel Mcdonald, PCP - External Primary Internal Medicine 09/22/18 MD Care Provider [address] [place] [address] Jasmin Hugo, PCP - General Gynecological Oncology 09/28/18 [address] [place] [address] Tomás Dykes Internal Medicine 04/17/22 MD Lillian [address] [place] [id number] Ariella Hopkins Consulting Physician Breast Surgery 01/30/22 Jeni Redding MD [address] [place] [address]
--- OUTSIDE RECORDS SUMMARY | 2023-04-02 04:20 | XMS REPORT | Continuity of Care Document ---
:1965 Author Organization [facility] t Address [address] [place] [address] Care Team Providers Name Role Phone Asked, No Pcp Primary Care Physician Unavailable SYSTEM, PROVIDER NOT IN Attending Clinician Unavailable Rosibel Mcdonald Attending Clinician Unavailable Richy Che Attending Clinician Unavailable Arsen Carballo Attending Clinician Unavailable Leonora Rain MD Attending Clinician Ela Mcneil Attending Clinician [phone] Iker HENAO, Pedro Kunz Attending Clinician [phone] Lalo LANGE, August Attending Clinician Unavailable ELA GUTIÉRREZ Attending Clinician Unavailable LEONORA RAIN Attending Clinician Unavailable CORONA DAVILA Attending Clinician Unavailable Only, Ang Db Test Attending Clinician Unavailable Kavon Fisher Attending Clinician KAVON RAYGOZA Attending Clinician Unavailable ALIN GARCIA Attending Clinician Unavailable Whitley Anglin Attending Clinician [phone] Alin Harley Attending Clinician Avinash LANGE, Shivam Attending Clinician Unavailable Only, Adc Test Attending Clinician Unavailable Dion Mcintyre MD Attending Clinician Talisha LANGE, Genny Desai Attending Clinician Unavailable Doctor Unassigned, Pana Attending Clinician Unavailable VANESSA EVERETT Attending Clinician [...] Date Endometriu Endometriu Disease Active 2020-0 U nivapple m m 1-17 ity of thickened thickened [...] Center Hypertensi Hypertensi Disease Active 2019-0 U huang on on 4-30 ity of 00:00: [place] 00 MD [facility] Primary Primary Problem Active Common osteoarthr osteoarthr Sp callie itis of itis of - [facility] left knee left knee [facility] Primary Primary Problem Active Common osteoarthr osteoarthr Sp callie itis of itis of - [facility] left foot left foot [facility] Primary Primary Problem Active Common osteoarthr osteoarthr Sp callie itis of itis of - [facility]I right foot right foot [facility] Posterior Posterior Problem Active 2018-12-06 Memoria tibial tibial 02:45:07 l tendon tendon Freddy dysfunctio dysfunctio n n Active Problem 12/06/2018 [facility] Posterior Posterior Problem Active 2018-12-06 Memoria Tibialis Tibialis 02:45:07 l Tendinitis Tendinitis He rmhilda Active Problem 12/06/2018 [facility] Type 2 Type 2 Problem Active 2018-12-06 Derik brian diabetes diabetes 02:45:07 l mellitus mellitus Ashkan n without without complicati complicati on, on, without without long-term long-term current current use of use of insulin insulin Active Problem 12/06/2018 [facility] Joint Joint Problem Active 2018-12-06 Memor ia Contractur Contractur 02:45:07 l e e Active [place] Problem 12/06/2018 [facility] Calcaneal Problem Active 2018-12-06 Me moria spur Calcaneal 02:45:07 l spur [place] Active Problem 12/06/2018 [facility] Arthritis Arthritis Problem Active 2018-12-06 Memoria - - 02:45:07 l Degenerati Degenerati He rmhilda ve ve Active Problem 12/06/2018 [facility] Allergies, Adverse Reactions, Alerts Allergy Allergy Status Severity Reaction(s) Onset Inactive Treating Comm ents Source Name Type Date Date Clinician No Known DA Active U 2020-1 [facility] 06[facility]20 [facility] 00:00: [facility] 00 [facility] No Known DA Active U 2020-1 [facility]ergie 06[facility]20 [facility] 00 are [facility] No Known DA Active U 2020-1 [facility] Allergie 18 [place] [facility] 00:00: Ashraf 00 [facility] No Known DA Active U 2020-1 [facility] Allergie 18 [place] 00:00: Ashraf 00 [facility] NO KNOWN Drug Active Univers ALLERGIE Class ity [facility] Family History Family Member Diagnosis Comments Start Date Stop Date Source Paternal aunt Breast cancer [facility] MD Kan Mae Natural sister -Breast cancer [facility] Tylersally [facility] MD Kan Mae Social History Social Habit Start Date Stop Date Quantity Comments Source Sexual orientation Saravanan clancy [facility] MD [facility] Tobacco use and 2022-12-21 2022-12-21 Smokeless tobacco [facility] exposure 00:00:00 00:00:00 non-user Hospital Alcohol intake 2022-01-30 2022-01-30 Current drinker Unive rsity of 00:00:00 00:00:00 of alcohol [facility] History of Social 2022-01-30 2022-01-30 Univers ity of function 00:00:00 00:00:00 Caden childers [facility] Exposure to 2021-12-12 2021-12-22 Not sure University SARS-CoV-2 (event) 00:00:00 09:26:00 [facility] Alcohol Comment 2018-09-28 2018-09-28 Occasional Universit y of 00:00:00 00:00:00 drinker Caden childers [facility] Center Sex Assigned At [birth year] Universit y of 00:00:00 00:00:00 Caden childers [facility] Smoking Status Start Date Stop Date Source Never smoked tobacco [facility] Medications Ordered Filled Start Stop Current Ordering Indication Dosage Frequency Signature Comments Components Source Medication Medication Date Date Medication? Clinician (SIG) Name Name cholecalcif 2022-05 Yes 1{tbl} Take 1 Un cristian rickie, 0-05 tablet by ity of vitamin D3, 20:07: mouth Caden (VITAMIN D3 45 daily. ORAL) [facility] aspirin 81 2022-05 Yes 81mg Take 81 mg U nivers mg EC 0-05 by mouth ity of tablet 20:07: daily. Caden Valentin MD [facility] aspirin 2022-0 Yes 81mg QD Take 1 Methodi (ECOTRIN) 7-24 tablet (81 st 81 MG 08:52: mg total) Hospita enteric 03 by mouth l coated daily. tablet aspirin 0 Yes 81mg QD Take 1 [facility] (ECOTRIN) 7-24 tablet (81 st 81 MG 08:52: mg total) Hospita enteric 03 by mouth l coated daily. tablet methylPREDN 2022- No [id number] follow Methodi ISolone 12-[id number] (Medrol, 00:00: 04:59 directions Ho bree Tahir,) 4 mg 00 :00 l tablet methylPREDN 2022- No [id number] follow Methodi ISolone 12-[id number] (Medrol, 00:00: 04:59 directions Didier Haro,) 4 mg 00 :00 l tablet Xarelto 20 2022-0 Yes 20mg QD Take 1 Metho di mg tablet 7-11 tablet (20 00:00: mg total) Hospita 00 by mouth l daily. Xarelto 20 2022-0 Yes 20mg QD Take 1 Metho di mg tablet 7-11 tablet (20 00:00: mg total) Hospita 00 by mouth l daily. gabapentin 2022-0 Yes Methodi (NEURONTIN) 7-05 st 300 mg 00:00: Hospita capsule 00 l gabapentin 2022-0 Yes [facility] (NEURONTIN) 7-05 st 300 mg 00:00: Hospita capsule 00 l lisinopriL- 2022-0 Yes 1{tbl} QD Take 1 Me thodi hydrochloro 7-[address] thiazide 00:00: mouth Hospita (PRINZIDE) 00 daily. l 20-25 mg per tablet lisinopriL- 2022-0 Yes 1{tbl} QD Take 1 Me thodi hydrochloro 7-[address] thiazide 00:00: mouth Hospita (PRINZIDE) 00 daily. l 20-25 mg per tablet allopurinoL 2022-0 Yes Method i (ZYLOPRIM) 5-19 st 100 MG 00:00: Hospita tablet 00 l allopurinoL 2022-0 Yes Method i (ZYLOPRIM) 5-19 st 100 MG 00:00: Hospita tablet 00 l traMADoL 2021-0 Yes 1{capsu Take 1 Univ ers 300 mg MP17 7-15 le} capsule by it y of 13:44: mouth [place] 16 daily. Medical Branch traMADoL 0 Yes 1{capsu Take 1 Univ ers 300 mg MP17 7-15 le} capsule by it y of 13:44: mouth [place] 16 daily. Medical Branch aspirin 81 0 Yes 81mg Take 81 mg U nivers mg EC 7-15 by mouth ity of tablet 13:43: daily. [address] Branch rivaroxaban 0 Yes 20mg Take 20 mg Univers 20 mg 7-15 by mouth. ity of tablet 13:43: [address] Branch aspirin 81 0 Yes 81mg Take 81 mg U nivers mg EC 7-15 by mouth ity of tablet 13:43: daily. [address] rivaroxaban Yes 20mg Take 20 mg Univers 20 mg 7-15 by mouth. ity of tablet 13:43: [address] clindamycin 2021- No [id number] 300mg Take 1 Univers 300 mg 7-15 - capsule by ity of capsule 00:00: 04:59 mouth 4 [place] 00 :00 ([facility]) [facility] times [place] daily for 10 days. clindamycin 2021- No [id number] 300mg Take 1 Univers 300 mg 7-15 - capsule by ity of capsule 00:00: 04:59 mouth 4 [place] 00 :00 ([facility]) [facility] times [place] daily for 10 days. lisinopriL Yes Univers 20 mg 6-02 ity of tablet 00:00: [address] lisinopriL Yes Univers 20 mg 6-02 ity of tablet 00:00: [address] Xarelto 20 Yes TAKE 1 Unive rs mg tablet 4-10 TABLET BY ity o f 00:00: MOUTH [place] 00 EVERY DAY [facility] Xarelto 20 Yes TAKE 1 Unive rs mg tablet 4-10 TABLET BY ity o f 00:00: MOUTH [place] 00 EVERY DAY [facility] PredniSONE PredniSONE 2019-0 2020- No Darius 1 tablet Common 02-11 Graf Spirit 00:00: 00:00 - [facility] 00 :00 [facility] cholecalcif 2019-0 Yes 1{tbl} Take 1 Un cristian rickie, 1-15 tablet by ity of vitamin D3, 14:10: mouth [place] (VITAMIN D3 09 daily. ORAL) [facility] aspirin 81 2019-0 Yes 81mg Take 81 mg U nivers mg EC 1-15 by mouth ity of tablet 14:10: daily. [place] [facility] aspirin 81 2017- Yes 81mg Take 81 mg U nivers mg EC 8-22 by mouth ity of tablet 18:26: daily. [address] aspirin 81 Yes 81mg Take 81 mg U nivers mg EC 8-22 by mouth ity of tablet 18:26: daily. [address] aspirin 81 2018-0 Yes 81mg Take 81 mg U nivers mg EC 8-22 by mouth ity of tablet 18:26: daily. [address] aspirin 81 2018-0 Yes 81mg Take 81 mg U nivers mg EC 8-22 by mouth ity of tablet 13:26: daily. [address] aspirin 81 2018-0 Yes 81mg Take 81 mg U nivers mg EC 8-22 by mouth ity of tablet 13:26: daily. [address] Tramadol 2018-0 Yes Ignacio one tab Memori a 8-20 [place] 00:00: [place] Tramadol 2018-0 Yes Ignacio one tab Memori a 8-20 [place] 00:00: [place] Tramadol 2018-0 Yes Ignacio one tab Memori a 8-20 [place] 00:00: [place] Tramadol 2018-0 Yes Ignacio one tab Memori a 8-20 [place] 00:00: [place] metFORMIN 2018-0 Yes Univers 500 mg 8-16 ity of tablet 00:00: [address] metFORMIN 2018-0 Yes Univers 500 mg 8-16 ity of tablet 00:00: [address] metFORMIN 2018-0 Yes Univers 500 mg 8-16 ity of tablet 00:00: [address] metFORMIN 2018-0 Yes Univers 500 mg 8-16 ity of tablet 00:00: [address] metFORMIN 2018-0 Yes Univers 500 mg 8-16 ity of tablet 00:00: [address] metFORMIN 2018-0 Yes Univers 500 mg 8-16 ity of tablet 00:00: [address] metFORMIN 2018-0 Yes Univers 500 mg 8-16 ity of tablet 00:00: [address] metFORMIN 2018-0 Yes Methodi (GLUCOPHAGE 8-16 st ) 500 mg 00:00: Hospita tablet 00 l metFORMIN 2018-0 Yes [facility] (GLUCOPHAGE 8-16 st ) 500 mg 00:00: Hospita tablet 00 l lisinopril- 0 Yes Univer s hydrochloro 7-29 ity of thiazide 00:00: [place] 20-12.5 mg 00 Medical per tablet Branch lisinopril- 0 Yes Univer s hydrochloro 7-29 ity of thiazide 00:00: [place] 20-12.5 mg 00 Medical per tablet Branch [...] tablet by ity of thiazide 00:00: mouth Caden (Jose HUNG 00 daily. MD KELLY) Anderso 20-12.5 mg n per tablet [facility] [place] lisinopril- Yes 1{tbl} Take 1 Un cristian hydrochloro 7-29 tablet by ity of thiazide 00:00: mouth Caden (Jose HUNG daily. MD KELLY) Anderso 20-12.5 mg n per tablet [facility] [place] Aspirin 81 Aspirin 81 Yes Darius not Common Graf defined [facility] Tramadol Tramadol Yes Darius not Comm on HCl HCl Graf defined [facility] Metformin Metformin Yes Darius not Co mmon HCl HCl Graf defined [facility] Lisinopril- Lisinopril- Yes Darius not Common Hydrochloro Hydrochloro Graf defined [facility] thiazide thiazide [facility] Vital Signs Vital Name Observation Time Observation Value Comments Source Systolic blood 2021-12-12 18:34:00 138 mm[Hg] Univer sity of pressure [facility] Diastolic blood 2021-12-12 18:34:00 85 mm[Hg] Unive rsity of pressure [facility] Heart rate 2021-12-12 18:34:00 90 /min [facility] Body temperature 2021-12-12 18:34:00 37.11 Jeanette [facility] Respiratory rate 2021-12-12 18:34:00 18 /min [facility] Body height 2021-12-12 18:34:00 165.1 cm [facility] Body weight 2021-12-12 18:34:00 154.722 kg [facility] BMI 2021-12-12 18:34:00 56.76 kg/m2 [facility] Oxygen saturation in 2021-12-12 18:34:00 97 /min [facility] Arterial blood by [facility] Pulse oximetry Branch Systolic blood 2022-12-21 13:41:00 127 mm[Hg] Method ist Hospital pressure Diastolic blood 2022-12-21 13:41:00 81 mm[Hg] [facility] dist Hospital pressure Heart rate 2022-12-21 13:41:00 117 /min [facility] Body height 2022-12-21 13:41:00 165.1 cm [facility] Body weight 2022-12-21 13:41:00 124.739 kg [facility] BMI 2022-12-21 13:41:00 45.76 kg/m2 [facility] Procedures Procedure Date / Time Performed Performing Clinician Sour e XR HAND 3+ VW RIGHT 2022-12-21 14:00:27 Dong Myphuong [facility] Joaquina ASSIGNMENT OF BENEFITS 2020-09-03 14:21:36 Doctor Unassigned, No [facility] Plan of Care Planned Activity Planned Date Details Comments Source Future Scheduled 2023-03-25 Screening [facility] Test 20:00:23 malignant neoplasm of colon (procedure) [code = 126582211] Future Scheduled 2023-03-25 [facility] Test 20:00:23 malignant neoplasm of colon (procedure) [code = 519487343] Future Scheduled 2023-03-25 [facility] Test 20:00:23 malignant neoplasm of colon (procedure) [code = 641472707] Future Scheduled 2023-03-25 Hepatitis C screening [facility] Test 20:00:23 (procedure) [code = 412610753] Future Scheduled 2023-03-25 [facility] Test 20:00:23 malignant neoplasm of cervix (procedure) [code = 313005013] Future Scheduled 2023-03-25 [facility] Test 20:00:23 malignant neoplasm of colon (procedure) [code = 126515788] Future Scheduled 2023-03-25 [facility] Test 20:00:23 malignant neoplasm of colon (procedure) [code = 740856519] Future Scheduled 2023-03-25 COVID-19 VACCINE [facility] 20:00:23 ) [code = COVID-19 VACCINE ()] Future Scheduled 2023-03-25 INFLUENZA VACCINE [facility] Test 20:00:23 (#1) [code = INFLUENZA VACCINE (#1)] Future Scheduled 2023-03-25 BREAST CANCER [facility] Test 20:00:23 SCREENING [code = BREAST CANCER SCREENING] Future Scheduled 2023-03-20 COVID-19 Vaccination [facility] Test 06:26:38 () MD Maki rsnelli [facility] [code = COVID-19 Center Vaccination ()] Future Scheduled 2023-02-12 [facility] Test 18:04:14 malignant neoplasm of colon (procedure) [code = 371173489] Future Scheduled 2023-02-12 [facility] Test 18:04:14 malignant neoplasm of colon (procedure) [code = 885638702] Future Scheduled 2023-02-12 [facility] Test 18:04:14 malignant neoplasm of colon (procedure) [code = 025698147] Future Scheduled 2023-02-12 Hepatitis C screening [facility] Test 18:04:14 (procedure) [code = 994121972] Future Scheduled 2023-02-12 [facility] Test 18:04:14 malignant neoplasm of cervix (procedure) [code = 094807092] Future Scheduled 2023-02-12 [facility] Test 18:04:14 malignant neoplasm of colon (procedure) [code = 805705019] Future Scheduled 2023-02-12 [facility] Test 18:04:14 malignant neoplasm of colon (procedure) [code = 748292478] Future Scheduled 2023-02-12 COVID-19 VACCINE (3 - [facility] Test 18:04:14 Pfizer series) [code = COVID-19 VACCINE (3 - Pfizer series)] Future Scheduled 2023-02-12 INFLUENZA VACCINE [facility] Test 18:04:14 (#1) [code = INFLUENZA VACCINE (#1)] Future Scheduled 2023-02-12 [facility] 18:04:14 SCREENING [code = BREAST CANCER SCREENING] Future Scheduled 2023-02-11 COVID-19 Vaccination [facility] Test 14:45:52 (3 - Pfizer series) Eduar [facility] [code = COVID-19 Center Vaccination (3 - Pfizer series)] Encounters Start End Encounter Admission Attending Care Care Encounter Source Date/Time Date/Time Type Type Clinicians Facility Department ID 2023-04-02 Outpatient [id number] Memoria 04:18:13 [id number] -[id number] Freddy [id number] 2023-02-18 Outpatient [id number] Memoria 01:41:50 [id number] Freddy [id number] 2022-12-21 Outpatient [id number] Memoria 20:29:09 [id number] -[id number] Freddy [id number] 2022-02-12 Outpatient SYSTEM, [facility] [id number] 08:03:19 PROVIDER Angel herrera 2022-02-03 Outpatient [id number] Memoria 10:32:42 [id number] -[id number] Freddy [id number] 2022-01-30 Outpatient [id number] Memoria 10:01:16 [id number]-[id number] -[id number] Freddy [id number] 2021-12-23 Outpatient SYSTEM, [facility] KRISTIN [id number] 14:16:48 PROVIDER Angel herrera 2021-06-25 Outpatient [facility] [id number] Common 11:39:04 Rosibel 88613 Spirit - [facility] 2020-07-03 Inpatient HCACL YADY [id number] [facility] 05:40:[address] [place] [address] 2020-04-20 Inpatient EM Yane, [facility] ADMI [id number] [facility] 22:15:[address] [place] [address] 2020-04-17 Inpatient UR Haris, [facility] MEDI.01 [id number] [facility] 08:48:00 Oladipo 20 [facility] 2023-02-22 2023-02-22 Orders Oanh, 1.2.840.1 [id number] Univers 00:00:00 00:00:00 Only Leonora Truong 94368.1.1 ity of 3.412.2.7 [place] .3.517696 .8 [facility] 2023-02-10 2023-02-10 Orders Conklin-Ebony 1.2.840.1 [id number] Univers 00:00:00 00:00:00 Only Ela rob 08893.1.1 ity of 3.412.2.7 [place] .3.505202 MD Atkins8 [facility] 2023-02-10 2023-02-10 Orders Conklin-Ebony 1.2.840.1 [id number] [facility] 00:00:00 00:00:00 Only Kassy robsy 08760.1.1 ity of 3.412.2.7 [place] .3.663166 MD Nguyen [facility] 2022-12-21 2022-12-21 Office Dong, 1.2.840.1 [id number] Methodi 09:20:00 09:49:25 Visit Myphuong 07456.1.[address] Joaquina 3.430.2.7 Hospit a .3.886205 l .8 2022-12-21 2022-12-21 Office Dong, 1.2.840.1 [id number] Methodi 09:20:00 09:49:25 Visit Myphuong 73092.1.[address] Joaquina 3.430.2.7 Hospit a .3.105193 l .8 2022-12-21 2022-12-21 Outpatient DONG, [facility] [id number] [address] [place] [address] 00:00:00 00:00:[address] 2022-05-29 2022-05-29 Orders Conklin-Ebony 1.2.840.1 [id number] Univers 00:00:00 00:00:00 Only Ela rob 48523.1.1 ity of 3.412.2.7 [place] .3.967843 MD Nguyen [facility] 2022-05-29 2022-05-29 Orders Conklin-Ebony 1.2.840.1 [id number] Univers 00:00:00 00:00:00 Only Kassy robsy 95272.1.1 ity of 3.412.2.7 [place] .3.045516 MD Nguyen [facility] 2022-03-30 2022-03-30 Telephone Lalo, 1.2.840.1 [id number] Univers 00:00:00 00:00:00 Oliva F 86165.1.1 ity of 3.412.2.7 [place] .3.086991 MD Nguyen [facility] 2022-02-03 2022-02-03 Outpatient JODI GONSALVES MDA MDA [id number] 11:45:58 11:45:58 IHRA ELA allenso n 2022-02-03 2022-02-03 Outpatient JODI RAIN MDA MDA [id number] 11:17:01 11:17:01 LEONORA herrera 2022-02-03 2022-02-03 Outpatient JODI RAIN MDA MDA [id number] 11:16:56 11:16:56 LEONORA herrera 2022-02-03 2022-02-03 Outpatient JODI GONSALVES MDA MDA [id number] 10:21:52 10:21:52 HIRA ELA allenso n 2022-01-30 2022-01-30 Outpatient JODI DAVILA MDA MDA [id number] 10:01:04 11:45:40 CORONA herrera 2021-12-22 2021-12-22 Laboratory Only, Ang Db Test [facility] 1.2.8 40.114 [id number] Univers 09:30:00 09:45:00 Only [facility] 350.1.13.10 ity [facility] 4.2.7.2.686 Paul as YOVANNY?BLEA [id number] [address] OFFICE [facility] 2021-12-22 2021-12-22 [facility] [id number] Univers 09:30:00 09:38:34 KAVON burgess [facility] 2021-12-12 2021-12-12 Outpatient R [place] [id number] Univers 13:20:00 13:58:14 BRANDONIA ity of [facility] 2021-12-12 2021-12-12 Urgent Whitley Germain [facility] 1.2. 840.114 [id number] Univers 13:20:00 13:58:14 [facility] 350.1.13.10 ity of [place] 4.2.7.2.686 Paul as YOVANNY?BLEA [id number] [address] MEDICAL OFFICE BUILDING 2021-05-27 2021-05-27 Telephone BEATRIZ Da Silva 1.2.840.114 [id number] Univers 00:00:00 00:00:00 Shivam LIMA 350.1.13.10 it y [facility] 4.2.7.2.686 Paul as [id number] [address] 2021-05-26 2021-05-26 Outpatient R [facility] [id number] Univers 15:15:00 16:20:21 KAVON greene o f [facility] 2021-05-26 2021-05-26 Laboratory Only, Ang Db Test [facility] 1.2.8 40.114 [id number] Univers 15:15:00 15:30:00 Only Kavon Raygoza [facility] 350.1.13.10 ity [facility] 4.2.7.2.686 Paul as YOVANNY?BLEA [id number] [address] MEDICAL OFFICE BUILDING 2021-05-19 2021-05-19 [facility] [id number] Univers 18:30:00 18:30:00 KAVON sally o [facility] 2020-09-03 2020-09-03 Laboratory Only, Adc Test [facility] 1.2.840. 114 [id number] Univers 09:21:28 09:36:28 Only Dion Mcintyre 350.1.13.10 ity [facility] 4.2.7.2.686 [place] [facility] [id number] [address] 2020-09-03 2020-09-03 Outpatient R [facility] [id number] Univers 09:30:00 09:30:00 ity [facility] 2020-09-03 2020-09-03 Telephone Marce HENDERSON 1.2.840.114 [id number] Univers 00:00:00 00:00:00 Genny truong 350.1.13.10 ity [facility] 4.2.7.2.686 Paul as [id number] [address] 2020-09-03 2020-09-03 Orders Doctor HENDERSON 1.2.840.114 [id number] Univers 00:00:00 00:00:00 Only Unassigned, JANIE 350.1.13.10 ity of Pana [facility] 4.2.7.2.686 Paul as [id number] [address] 2020-04-20 2020-04-20 Outpatient CAL CheTREVIN REF [id number] [facility] 21:37:00 21:37:00 Richyvalencia Robledo [facility] 2020-04-17 2020-04-17 Outpatient Haris INDIO LABO [id number] [facility] 23:25:00 23:25:[address] [place] [address] 2020-02-14 2020-02-14 Outpatient [facility] [id number] Common 08:26:00 08:26:00 [facility] 2020-02-12 2020-02-12 Outpatient [facility] [id number] Common 08:30:00 08:30:00 [facility] 2020-01-26 2020-01-26 Outpatient VANESSA SALDANA MDA, MDA [id number] 00:00:00 00:00:00 Angel herrera 2020-01-24 2020-01-24 Outpatient JODI REY MDA MDA [id number] 00:00:00 00:00:00 MAGNUS herrera 2020-01-19 2020-01-19 Outpatient [facility] [id number] Common 08:30:00 08:30:00 t [facility] 2019-12-13 2019-12-13 Outpatient VANESSA SALDANA MDA, MDA [id number] 00:00:00 00:00:00 Angel herrera 2019-12-13 2019-12-13 Outpatient JODI REY MDA MDA [id number] 00:00:00 00:00:00 MAGNUS herrrea 2018-11-30 2018-11-30 Outpatient [facility] [id number] eClinic 10:40:00 10:40:00 Podiatry Podiatry alAditya markham [facility] 2018-09-06 2018-09-06 [facility] [id number] Common 08:00:00 08:00:00 t [facility] - [facility] 2018-04-28 2018-04-28 Outpatient [facility] [id number] eClinic 09:00:00 09:00:00 Podiatry Podiatry alWo rks [facility] [place] 2018-01-17 2018-01-17 Outpatient [facility] [id number] eClinic 11:19:00 11:19:00 [facility] Results Test Description Test Time Test Comments [...] developed and its performance characteristics determined by [employer]. It has not been cleared or approvedby the [place] Food and Drug Administration. PTT LONG ACTING INCUB Test not performed () Testing Not IndicatedNot MIX (test code = sec indicatedTh is test was developed and PTTLAMI) its performance characteristics determined by [employer]. It has not been cleared or approvedby [...] in the absence of anticoagulanttherapy. Please contact [facility] if evaluationof the prolonged APTT or further clar ification is needed.Performe d At: [facility] [address] 8 [id number] Fermin Lopez MD RENAL FUNCTION [id number] 08:03:00 Test Item Value Reference Range Interpretation [...] 2.5-4.9 N PHOS) COVID 19 Asymptomatic IH [id number] 11:38:00 Test Item Value Reference Range Interpretation [...] not done this admission- CT ABD PELVIS W/[id number] 07:12:00 [facility] 1965 Sex: F Name: EMILY ARRINGTON [facility] : 1965 Age/S: 55 / F [address] [place] [address] Unit #: [id number] Loc: [place] [address] Phys: Scooter Martin MD Acct: [id number] Dis Date: Status: REG ER PHONE #: [phone] Exam Date: 07/03/2020 06 FAX #: [phone] Reason: PAIN WITH TRAUMA EXAMS: CPT CODE: [id number] CT ABD PELVIS W/CONT 54133 STUDY: - CT CHEST W/CONTRAST, - CT ABD PELVIS W/CONT 07/03/2020 5:55 AM Ordering Physician: Scooter Martin MD Patient Name: EMILY ARRINGTON MR: [id number] : 1965; Age: 55 years y/o Female [...] iterative reconstruction technique IV CONTRAST: [id number] Radiation Dose DLP: 1974.50 mGy-cm FINDINGS: CT CHEST WITH CONTRAST: LUNGS: Well inflated lungs associated with a moderately elevated right hemidiaphragm and mild bilateral basilar subsegmental atelectasis and scarring. No consolidation, pleural effusion, or pneumothorax. AIRWAY: Clear central tracheobronchial tree. HEART: Mild cardiomegaly. 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 No aneurysm or injury is appreciated. PULMONARY ARTERIES: Prominent central pulmonary arteries consistent with pulmonary arterial hypertension without central pulmonary embolus. PAGE 1 Signed Report (CONTINUED) Name: EMILY ARRINGTON [facility] [place] : 1965 Age/S: 55 / F [address] [place] [address] Unit #: [id number] Loc: [place] [address] Phys: Scooter Martin MD Acct: [id number] Dis Date: Status: REG ER PHONE #: [phone] Exam Date: 07/03/2020623 FAX #: [phone] Reason: PAIN WITH TRAUMA EXAMS: CPT CODE: [id number] CT ABD PELVIS W/[id number] <Continued> MEDIASTINUM AND YRN: No mediastinal lymphadenopathy or mass. Heterogeneous thyroid with indeterminate low- attenuation lesions measuring up to 8 mm. SOFT TISSUES: Mild induration and stranding seen in the soft tissues in the left anterior chest wall consistent with soft tissue injury. OSSEOUS STRUCTURES: Mild to moderate thoracic spondylosis and facet arthrosis greatest in themid and lower thoracic spine. Acute mildly displaced [...] without discrete lesion. PAGE 2 Signed Report (CONT INUED) Name: EMILY ARRINGTON [facility] : 1965 Age/S: 55 / F [address] [place], [place] [address]vd Unit #: [id number] Loc: [place] [address] Phys: Scooter Martin MD Acct: [id number] Dis Date: Status: REG ER PHONE #: [phone] Exam Date: 07/03/2020 0624 FAX #: [phone] Reason: PAIN WITH TRAUMA EXAMS: CPT CODE: [id number] CT ABD PELVIS W/CONT 58958 <Continued> Gallbladder: Postoperative change of cholecystectomy. Biliary [...] low-attenuation lesion measuring 5 mm inferiorly. PELVIC ORGANS:Urinary bladder: Normal nonenhanced appropriate for degree of distention. Reproductive organs: Normal uterus and adnexa. SOFT TISSUES: Focal soft tissue density in the subcutaneous fat in the right midabdomen likely represent medication injection. Moderate size umbilical hernia measuring 10.8 x 9.4 x10.3 cm containing omental fat and a portion of the transverse colon. Nonspecific small to mildly enlarged bilateral inguinal lymph nodes. Mild hazy induration is otherwise seen in the subcutaneous fatacross the anterior lower abdominal wall fat. OSSEOUS STRUCTURES: Mild to moderate lumbar spondylosis and facet arthrosis. Mild loss of vertebral body height multiple lumbar vertebral body levels appears to be related to degenerative change. No definite acute fracture or dislocation is appreciated. Noacute fracture or dislocation within the pelvis or hips. IMPRESSION: PAGE 3 Signed Report (CONTINUED) Name: EMILY ARRINGTON : 1965 Age/S: 55 / F [address] [place] [address] Unit #: [id number] Loc: [place] [address] Phys: Scooter Martin MD Acct: [id number] Dis Date: Status: REG ER PHONE #: [phone] Exam Date: 07/03/2020623 FAX #: [phone] Reason: PAIN WITH TRAUMA EXAMS: CPT CODE: [id number] CT ABD PELVIS W/CONT 07994 <Continued> Acute mildly displaced obliquely oriented fracture involving the T10 vertebral body extending into the posterior aspect of the T10-T11 intervertebral disc space or posterior margin of the spinal canal. Multiple mild 10% at maximum compression fractures in the remaining mid and lower thoracic spine are of indeterminate age, but likely oldmost notably at T6, T7, T8, T9. No acute internal injury in the chest, abdomen, or pelvis. Mild cardiomegaly. Suspected pulmonary arterial hypertension without central pulmonary embolus. Heterogeneous thyroid with subcentimeter indeterminate low- attenuation lesions. No follow-up required. Postoperative change of cholecystectomy with mildly to moderately dilated intrahepatic and extrahepatic bile ducts likely physiological in nature to reservoir effect. Clinical correlation is required. Indeterminatelow-attenuation splenic lesion measuring 5 mm cannot be better described. Moderate size umbilical hernia containing omental fat and a portion of the transverse colon. Mild soft tissue injury involving the anterior lower abdominal wall fat and the left upper chest wall fat. Critical findings were communicated to Dr. Coburn on 07/03/2020 7:07 AM. SL: MARY-H at 0712 Reported and signed by: Jorden Palmer M.D. PAGE 4 Signed Report (CONTINUED) Name: EMILY ARRINGTON : 1965 Age/S: 55 / F [address] [place] [address] Unit #: [id number] Loc: [place] [address] Phys: Scooter Martin MD Acct: [id number] Dis Date: Status: REG ER PHONE #: [phone] Exam Date: 07/03/2020623 FAX #: [phone] Reason: PAIN WITH TRAUMA EXAMS: CPT CODE: [id number] CT ABD PELVIS W/CONT 02611 <Continued> CC: Rosibel trevino; Scooter Martin MD Technologist:Dago Chen, RT(R) CTDI: DLP: Trnscb Date/Time: 07/03/2020 (711) [email or web address] Orig Print D/T: S: 07/03/2020 (714) PAGE 5 Signed Report- CT CHEST W/[id number] 07:12:00 [facility] 1965 Sex: F Name: EMILY ARRINGTON [facility] : 1965 Age/S: 55 / F [address] [place] [address] Unit #: [id number] Loc: [place] [address] Phys: Scooter Martin MD Acct: [id number] Dis Date: Status: REG ER PHONE #:[phone] Exam Date: 07/03/2020623 FAX #: [phone] Reason: PAIN WITH TRAUMA EXAMS: CPT CODE: [id number] CT CHEST W/CONTRAST 16793 STUDY: - CT CHEST W/CONTRAST, - CT ABD PELVIS W/CONT 07/03/2020 5:55 AM Ordering Physician: Scooter Martin MD Patient Name: EMILY ARRINGTON MR: [id number] : 1965; Age: 55 years y/o Female [...] iterative reconstruction technique IV CONTRAST: [id number] Radiation Dose DLP: 1974.50 mGy-cm FINDINGS: CT CHEST WITH CONTRAST: LUNGS: Well inflated lungs associated with a moderately elevated right hemidiaphragm and mild bilateral basilar subsegmental atelectasis and scarring. No consolidation, pleural effusion, or pneumothorax. AIRWAY: Clear central tracheobronchial tree. HEART: Mild cardiomegaly. 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 No aneurysm or injury is appreciated. PULMONARY ARTERIES: Prominent central pulmonary arteries consistent with pulmonary arterial hypertension without central pulmonary embolus. PAGE 1 Signed Report (CONTINUED) Name: EMIYL ARRINGTON [facility] : 1965 Age/S: 55 / F [address] [place] [address] Blvd Unit #: [id number] Loc: [place] [address] Phys: Scooter Martin MD Acct: [id number] Dis Date: Status: REG ER PHONE #: [phone] Exam Date: 07/03/2020 0624 FAX #: [phone] Reason: PAIN WITH TRAUMA EXAMS: CPT CODE: [id number] CT CHEST W/CONTRAST 28160 <Continued> MEDIASTINUM AND YRN: No mediastinal lymphadenopathy or mass. Heterogeneous thyroid with indeterminate low- attenuation lesions measuring up to 8 mm. SOFT TISSUES: Mild induration and stranding seen in the soft tissues in the left anterior chest wall consistent with soft tissue injury. OSSEOUS STRUCTURES: Mild to moderate thoracic spondylosis and facet arthrosis greatest in themid and lower thoracic spine. Acute mildly displaced [...] without discrete lesion. PAGE 2 Signed Report (CON TINUED) Name: EMILY ARRINGTON [facility] [place] : 1965 Age/S: 55 / F [address] [place] [address] Unit #: [id number] Loc: [place] [address] Phys: Scooter Martin MD Acct: [id number] Dis Date: Status: REG ER PHONE #: [phone] Exam Date: 07/03/2020 0624 FAX #: [phone] Reason: PAIN WITH TRAUMA EXAMS: CPT CODE: [id number] CT CHEST W/CONTRAST 82944 <Continued> Gallbladder: Postoperative change of cholecystectomy. Biliary [...] 3 Signed Report (CONTINUED) Name: EMILY ARRINGTON : 1965 Age/S: 55 / F [address] [place] [address] Unit #: [id number] Loc: [place] [address] Phys: Scooter Martin MD Acct: [id number] Dis Date: Status: REG ER PHONE #: [phone] Exam Date: 07/03/2020 06 FAX #: [phone] Reason: PAIN WITH TRAUMA EXAMS: CPT CODE: [id number] CT CHEST W/CONTRAST 63822 <Continued> Acute mildly displaced obliquely oriented fracture involving the T10 vertebral body extending into the posterior aspect of the T10-T11 interv ertebral disc space or posterior margin of the spinal canal. Multiple mild 10% at maximum compression fractures in the remaining mid and lower thoracic spine are of indeterminate age, but likely old most notably at T6, T7, T8, T9. No acute internal injury in the chest, abdomen, or pelvis. Mild cardiomegaly. Suspected pulmonary arterial hypertension without central pulmonary embolus. Heterogeneous thyroid with subcentimeter indeterminate low-attenuation lesions. No follow-up [...] 4 Signed Report (CONTINUED) Name: EMILY ARRINGTON : 1965 Age/S: 55 / F [address] [place] [address] Unit #: [id number] Loc: [place] [address] Phys: Scooter Martin MD Acct: [id number] Dis Date:Status: REG ER PHONE #: [phone] Exam Date: 07/03/2020623 FAX #: [phone] Reason: PAIN WITH TRAUMA EXAMS: CPT CODE: [id number] CT CHEST W/CONTRAST 84816 <Continued> CC: Rosibel Clemons; Scooter Martin MD Technologist:Dago Chen, RT(R) CTDI: DLP: Trnscb Date/Time: 07/2020 (711) [email or web address] Orig Print D/T: S: 07/03/2020 (0715) PAGE 5 Signed Report- CT C-SPINE W/O [id number] 06:45:00 [facility] : 1965 Sex: F Name: EMILY ARRINGTON [facility] : 1965 Age/S: 55 / F [address] [place] [address] Unit #: [id number] Loc: [place] [address] Phys: Scooter Martin MD Acct: [id number] Dis Date: Status: REG ER PHONE #: [phone] Exam Date: 07/03/2020623 FAX #: [phone] Reason: NECK PAIN EXAMS: CPT CODE: [id number] CT C-SPINE W/O CONT 40258 STUDY: - CT C-SPINE W/O CONT 07/03/2020 5:55 AM Ordering Physician: Scooter Martin MD Patient Name: EMILY ARRINGTON MR: [id number] : 1965; Age: 55 years y/o Female [...] iterative reconstruction technique CT Radiation Dose DLP: 295.66mGy-cm FINDINGS: ALIGNMENT AND GENERAL ASSESSMENT: Mild to [...] of the lung apices are clear. IMPRESSION: PAGE 1 Signed Report (CONTINUED) Name: EMILY ARRINGTON [facility] [place] : 1965 Age/S: 55 / F [address] [place] [address] Unit #: [id number] Loc: [place] [address] Phys: Scooter Martin MD Acct: [id number] Dis Date: Status: REG ER PHONE #: [phone] Exam Date: 07/03/2020623 FAX #: [phone] Reason: NECK PAIN EXAMS: CPT CODE: [id number] CT C-SPINE W/O CONT 94559 <Continued> Mild to moderate cervical spondylosis and facet arthrosis. No acute fracture or dislocation. SL: TPAINTER-H at 0645 Reported and signed by: Jorden Palmer M.D. CC: Rosibel Mcdonald; Scooter Martin MD Technologist:Dago Chen, RT( R) CTDI: DLP: Trnscb Date/Time: 07/03/2020 (0645) [email or web address] Orig Print D/T: S: 07/03/2020 (0648) PAGE 2 Signed Report- CT HEAD/BRAIN W/O [id number] 06:40:00[facility] ASHRAFName: EMILY ARRINGTON : 1965 Sex: F Name: EMILY ARRINGTON [facility] [place] : 1965 Age/S: 55 / F [address] [place] [address] Unit #: [id number] Loc: [place] [address] Phys: Scooter Martin MD Acct: [id number] Dis Date: Status: REG ER PHONE #: [phone] Exam Date: 07/03/2020623 FAX #: [phone] Reason: PAIN WITH TRAUMA EXAMS: CPT CODE: [id number] CT HEAD/BRAIN W/O CONT 94271 STUDY: - CT HEAD/BRAIN W/O CONT 07/03/2020 5:55 AM Ordering Physician: Scooter Martin MD Patient Name: EMILY ARRINGTON MR: [id number] : 1965; Age: 55 years y/o Female [...] of iterative reconstruction technique CT Radiation Dose DL P: 609.43 mGy-cm FINDINGS: BRAIN PARENCHYMA: Mildly limited examination secondary to patient positioning. 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 No evidence of acute intr acranial hemorrhage, mass lesion, mass effect, midline shift, or extra-axial fluid collection. VENTRICLES: The lateral ventricles, third ventricle, fourth ventricle, and basilar cisterns are appropriate for degree of atrophy present. PARANASAL SINUSES: Minimal mucoperiosteal thickening in the left maxillary sinus.. The visualized portions of the remaining paranasal sinuses are clear. MASTOIDS: Clear. PAGE 1 Signed Report (CONTINUED) Name: EMILY ARRINGTON : 1965 Age/S: 55 / F [address] [place] [address] Blvd Unit #: [id number] Loc: [place] [address] Phys: Scooter Martin MD Acct: [id number] Dis Date: Status: REG ER PHONE #: [phone] Exam Date: 07/03/2020623 FAX #: [phone] Reason: PAIN WITH TRAUMA EXAMS: CPT CODE: [id number] CT HEAD/BRAIN W/O CONT 58358 <Continued>ORBITS: The visualized portions of the orbits are normal. SOFT TISSUES: No significant abnormality. SKULL: No acute fracture or suspicious osseous lesion. 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 No acute intracranial abnormality. Multiple chronic sinusitis.SL: TPAINTER-H at 0640 Reported and signed by: Jorden Palmer M.D. CC: Rosibel Mcdonald; Scooter Martin MD Technologist:Dago Chen, RT(R) CTDI: DLP: Trnscb Date/Time: 07/03/2020 (639) [email or web address] Orig Print D/T: S: 07/03/2020 (0643) PAGE 2 Signed ReportBASIC METABOLIC [id number] 06:30:00 Test Item Value Reference Range Interpretation [...] 9.9 mg/dL 8.0-10.5 N CA) HEPATIC FUNCTION [id number] 06:30:00 Test Item Value Reference Range Interpretation [...] 86 IUnit/L 20-125 N code = ALKP) [id number] 06:30:00 Test Item Value Reference Range Interpretation [...] titative results may jolly y by method. [id number] 06:30:00 Test Item Value Reference Range Interpretation [...] Leg al orEmployment ev aluation purposes. PROTHROMBIN [id number] 06:18:00 Test Item Value Reference Range Interpretation [...] (to prevent recurrent infar ct). THROMBOPLASTIN TIME [id number] 06:18:00 Test Item Value Reference Range Interpretation Comments THROMBOPLASTIN TIME 32.2 Seconds 25.0-39.5 N Therape utic Range: PARTIAL (test code = 50.4 - 88.3 Seconds PTT) Effective 09/13/2018 PROTHROMBIN [id number] 06:17:00 Test Item Value Reference Range Interpretation [...] (to prevent recurrent infar ct). THROMBOPLASTIN TIME [id number] 06:17:00 Test Item Value Reference Range Interpretation Comments THROMBOPLASTIN TIME PARTIAL (test Seconds 25.0-39.5 code = PTT) - XR PELVIS 1/2 [id number] 06:14:00 [facility] : 1965 Sex: F FAX: Rosibel Dozier MD [phone] [place]: St: REG FAX: Scooter Aguila MD [phone] Name: EMILY ARRINGTON [facility] : 1965 Age/S: 55/F [address] [place] [address] Unit #: [id number] Loc: [place] [address] Phys: Scooter Martin MD Acct: [id number] Dis Date: Status: REG ER PHONE #: [phone] Exam Date: 07/03/2020 0600 FAX #: [phone] Reason: PELVIC PAIN EXAMS: CPT CODE: [id number] XR PELVIS 1/2 VIEWS 72136 Study: - XR PELVIS 1/2 VIEWS 07/03/2020 5:55 AM Patient Name: EMILY ARRINGTON MR: [id number] : 1965; Age: 55 years y/o Female Ordering Physician: Scooter Martin MD Clinical Indication:Pelvic pain related to trauma. Comparison: None PELVIS, 1 view: IMPRESSION: Mildly limited examination secondary to underpenetration greatest in the superior half of the pelvis. No acute fracture or dislocation is appreciated given limitations. 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 Moderate lumbosacral spondylosis and facet arthrosis. Normal soft tissues. SL: TPAINTER-H at 0614 Reported and signed by: Jorden Palmer M.D. CC: Rosibel Mcdonald; Scooter Martin MD Technologist: Radha Washington RT(R) Trnscrd Date/Time/By: 07/03/2020 (613) : By: [email or web address] Orig Print D/T: S: 07/03/2020 (0617) PAGE 1 Signed Report- XR CHEST 1 [id number] 06:12:00 [facility] : 1965 Sex: F FAX: Rosibel Dozier MD [phone] [place]: St: REG FAX: Scooter Aguila MD [phone] Name: EMILY ARRINGTON [facility] Sheila Ashraf : 1965 Age/S: 55/F [address] [place] [address] Unit #: [id number] Loc: [place] [address] Phys: Scooter Martin MD Acct: [id number] Dis Date: Status: REG ER PHONE #: [phone] Exam Date: 07/03/2020 0600 FAX #: [phone] Reason: CHEST PAIN EXAMS: CPT CODE: [id number] XR CHEST 1 V 20026 Study: - XR CHEST 1 V 07/03/2020 5:55 AM Patient Name: EMILY ARRINGTON MR: [id number] : 1965; Age: 55 years y/o Female [...] a mildly elevated right hemidiaphragm, and ill-defined leftlower lobe opacity and right perihilar opacity suggesting artifact, subsegmental atelectasis, or pneumonia. Question small left pleural effusion. Mild cardiomegaly. SL: TPAINTER-H PAGE 1 Signed Report (CONTINUED) FAX: Rosibel Samuel MD [phone] [place]: St: REG FAX: Scooter Aguila MD [phone] Name: [facility] 1965 Age/S: 55/F [address] [place] [address] Blvd Unit #: [id number] Loc: [place] [address] Phys: Scooter Martin MD Acct: [id number] Dis Date: Status: REG ER PHONE #: [phone] Exam Date: 07/03/2020 0600 FAX #: [phone] Reason: CHEST PAIN EXAMS: CPT CODE: [id number] XR CHEST 1 V 48564 <Continued> at 0612 Reported and signed by: Jorden Palmer M.D. CC: Rosibel Mcdonald; Scooter Martin MD Technologist: Radha Washington RT(R) Trnscrd Date/Time/By: 07/03/2020 (0612) : By:[email or web address] Orig Print D/T: S: 07/03/2020 (0615) PAGE [...] (test code NO = MDIFF) CBC W/AUTO [id number] 06:09:00 Test Item Value Reference Range Interpretation [...] REQUIRED (test code = MDIFF) LUPUS ANTICOAGULANT [id number] 18:08:00 Test Item Value Reference Interpretation Comments [...] the absence of anticoagulantth erapy. Please contact [facility] if evaluationof the prolonged APTT or further clarification is needed.Perfo rmed At: [employer] [address] [facility], [place] [id number] r Fermin Lopez MD Ph:[phone] ANTI PHOSPHOLIPID [id number] 19:41:00 Test Item Value Reference Interpretation Comments [...] clarifi cation isneeded.Perfor med At: [facility] [employer] Qag[address] [facility] [address] [place], [place] [id number] r Fermin Lopez MD Ph:[phone] sults are interpreted as indeterminate for the [...] Negative: <15 I ndeterminate: 15 - 20 Low-Me d Positive: >20 - 80 High P ositive: >80Reference Ra nge:Negative: <15Indeterminat e: 15 - 20Low to medium posit manuel: >20 - 80High positive : >80 Negative: <15 I ndeterminate: 15 - 20 Low-Med Positive: >20 - 80 High Positive: >80Previously r eported result: <10 GPL U/mLEdited by: INFCE on 05/06/20:1008Pr eviously reported result : <9 GPLEdited by: I NFCE on 05/06/20:1008Pr eviously reported result : <10 GPL U/mLEdited by: INFCE on 05/05/20:2005 HERBER IGA (test <9 APL U/mL 0-11 Reference Rang e:Negative: code = ACAA) <12Indeterminat e: 12 - 20Low to medium posit manuel: >20 - 80High positive : >80 Negative: <12 Indeterminate: 12 - 20 Low-Med Positiv e: >20 - 80 High Positive: >80Performed At: [facility] [address] [id number] ra Felicia HENAO Ph:[phone] ference Range:Negative: <12Indeterminat e: 12 - 20Low to medium posit manuel: >20 - 80High positive : >80 Negative: <12 I ndeterminate: 12 - 20 Low-Med Positive: >20 - 80 High P ositive: >80Performed At : [facility] Cda[address] [id number] r Fermin Lopez MD Ph:[phone] rformed At: [facility] [place], [place] [id number] ra Felicia HENAO Ph:[phone] eviously reported result : <10 APL U/mLEdited by: INFDALIA on 05/06/20:100Pr eviously reported result : <9 APLEdited by: I NFCE on 05/06/20:1007Pr eviously reported result : <10 APL U/mLEdited by: CHRIS on 05/05/20:2005 HERBER IGM (test <9 MPL U/mL 0-12 Reference Rang e:Negative: code = ACAM) <13Indeterminat e: 13 - 20Low to medium posit manuel: >20 - 80High positive : >80 Negative: <13 I ndeterminate: 13 - 20 Low-Med Positive: >20 - 80 High P ositive: >80Reference Ra nge:Negative: <13Indeterminat e: 13 - 20Low to medium posit manuel: >20 - 80High positive : >80 Negative: <13 I ndeterminate: 13 - 20 Low-Med Positive: >20 - 80 High Positive: >80Previously r eported result: <10 MPL U/mLEdited by: CHRIS on 05/06/20:1008Pr eviously reported result : <9 MPLEdited by: I NFCE on 05/06/20:100Pr eviously reported result : <10 MPL U/mLEdited [...] tive: 36 - 50High Positive : >50 WTSY-7-EKMKX I <10 SMU () The reference interval IGM (test code = reflects a 3SD or 99th GPIIGM) percentileinter amanda, which is thought to repr esent a potentiallyclin ically significant res ult in accordance with theInternationa l Consensus Statement on e classificationc riteria for definitive anti phospholipid syndrome (APS). JThromb Xiov0468;4:295- 306.Reference Range:Negative: <33 XVJD-3-CZRXM I <10 SGU () The reference interval IGG (test code = reflects a 3SD or 99th GPIIGG) percentileinter amanda, which is thought to repr esent a potentiallyclin ically significant res ult in accordance with theInternationa l Consensus Statement on e classificationc riteria for definitive anti phospholipid syndrome (APS). JThromb Zkln9293;4:295- 306.Reference Range:Negative: <21 BJAJ-6-HIRMC I <10 LORI () The reference interval IGA (test code = reflects a 3SD or 99th GPIIGA) percentileinter amanda.Reference Range:Negative: <26 FACTOR [id number] 19:41:00 Test Item Value Reference Range Interpretation Comments FACTOR V (test code = FAC5) ANTI PHOSPHOLIPID [id number] 10:08:00 Test Item Value Reference Interpretation Comments [...] clarifi cation isneeded.Perfor med At: [facility] [address] [facility], [place] [id number] r Fermin Lopez MD Ph:[phone] sults are interpreted as indeterminate for the [...] High Posit manuel: >80Performed At : [facility] [address] [id number] ra Felicia HENAO Ph:[phone] ference Range:Negative: <12Indeterminat e: 12 - 20Low [...] tive: 36 - 50High Positive : >50 DAUP-1-JWXKW I <10 SMU () The reference interval IGM (test code = reflects a 3SD or 99th GPIIGM) percentileinter amanda, which is thought to repr esent a potentiallyclin ically significant res ult in accordance with theInternationa l Consensus Statement on classificationc riteria for definitive anti phospholipid syndrome (APS). JThromb Fmkm5488;4:295- 306.Reference Range:Negative: <33 JLND-3-TIUBY I <10 SGU () The reference interval IGG (test code = reflects a 3SD or 99th GPIIGG) percentileinter amanda, which is thought to repr esent a potentiallyclin ically significant res ult in accordance with theInternationa l Consensus Statement on th e classificationc riteria for definitive anti phospholipid syndrome (APS). JThromb Wpbi5771;4:295- 306.Reference Range:Negative: <21 BUOJ-3-LIQHN I <10 LORI () The reference interval IGA (test code = reflects a 3SD or 99th GPIIGA) percentileinter amanda.Reference Range:Negative: <26 FACTOR [id number] 10:08:00 Test Item Value Reference Range Interpretation Comments FACTOR V (test code = FAC5) ANTI PHOSPHOLIPID [id number] 10:08:00 Test Item Value Reference Interpretation Comments [...] and i ts performance characteristics determined by [employer]. It has not been cleared or appr [...] clarifi cation isneeded.Perfor med At: [facility] [address] [facility], [place] [id number] r Brian F. MD Ph:[phone] sults are interpreted as indeterminate for the [...] Negative: <15 Indeterminate: 15 - 20 Low-Med Positive: >20 - 80 High Posit manuel: >80Reference Ra nge:Negative: <15Indeterminat e: 15 - 20Low to medium posit manuel: >20 - 80High positive : >80 Negative: <15 I ndeterminate: 15 - 20 Low-Me d Positive: >20 - [...] 80 High Posit manuel: >80Performed At : [facility] [id number] ra Felicia HENAO Ph:[phone] ference Range:Negative: <12Indeterminat e: 12 - 20Low to medium posit manuel: >20 - 80High positive : >80 Negative: <12 I ndeterminate: 12 - 20 Low-Med Positive: >20 - 80 High Posi tive: >80Performed At : [facility] [address] [id number] Lopez MD Ph:[phone] rformed At: [facility] [id number] ra Felicia HENAO Ph:[phone] eviously reported result : <10 APL U/mLEdited by: CHRIS on 05/06/20:1008Pr eviously reported result : <9 APLEdited by: INFDALIA on 05/06/20:1008Pr eviously reported result : <10 [...] result: <10 MPL U/mLEdited by: CHRIS on 05/06/20:1007Pr eviously reported result : <9 MPLEdited by: [...] tive: 36 - 50High Positive : >50 AKAJ-5-DKTCJ I <10 SMU () The reference interval IGM (test code = reflects a 3SD or 99th GPIIGM) percentileinter amanda, which is thought to repr esent a potentiallyclin ically significant res ult in accordance with theInternationa l Consensus Statement on e classificationc riteria for definitive anti phospholipid syndrome (APS). JThromb Tyhc5273;4:295- 306.Reference Range:Negative: <33 OGSZ-1-BFNML I <10 SGU () The reference interval IGG (test code = reflects a 3SD or 99th GPIIGG) percentileinter amanda, which is thought to repr esent a potentiallyclin ically significant res ult in accordance with theInternationa l Consensus Statement on th e classificationc riteria for definitive anti phospholipid syndrome (APS). JThromb Zlto1043;4:295- 306.Reference Range:Negative: <21 ZYJE-1-CBACL I <10 LORI () The reference interval IGA (test code = reflects a 3SD or 99th GPIIGA) percentileinter amanda.Reference Range:Negative: <26 FACTOR [id number] 10:08:00 Test Item Value Reference Range Interpretation Comments FACTOR V (test code = FAC5) ANTI PHOSPHOLIPID [id number] 20:06:00 Test Item Value Reference Interpretation Comments [...] and i ts performance characteristics determined by [employer]. It has not been cleared or appr [...] clarifi cation isneeded.Perfor med At: [facility] [address] [facility], [place] [id number] r Fermin Lopez MD Ph:[phone] HERBER IGG (test <9 GPL U/mL 0-14 Reference Rang e:Negative: code = ACAG) <15Indeterminat e: 15 - 20Low to medium posit manuel: >20 - 80High positive : >80 Negative: <15 I ndeterminate: 15 - 20 Low-Med Positive: >20 - 80 High Posit manuel: >80Previously r eported result: <10 GPL U/mLEdited by: INFCE on :2005 HERBER IGA (test <9 APL U/mL 0-11 Reference Rang e:Negative: code = ACAA) <12Indeterminat e: 12 - 20Low to medium posit manuel: >20 - 80High positive : >80 Negative: <12 Indeterminate: 12 - 20 Low-Med Positive: >20 - 80 High Posit manuel: >80Performed At : [facility] [address] [id number] ra Felicia HENAO Ph:[phone] eviously reported result : <10 APL U/mLEdited [...] tive: 36 - 50High Positive : >50 FOCM-5-NUOUU I <10 SMU () The reference interval IGM (test code = reflects a 3SD or 99th GPIIGM) percentileinter amanda, which is thought to repr esent a potentiallyclin ically significant res ult in accordance with theInternationa l Consensus Statement on e classificationc riteria for definitive anti phospholipid syndrome (APS). JThromb Cjhs2629;4:295- 306.Reference Range:Negative: <33 NREH-2-ZVTIZ I <10 SGU () The reference interval IGG (test code = reflects a 3SD or 99th GPIIGG) percentileinter amanda, which is thought to repr esent a potentiallyclin ically significant res ult in accordance with theInternationa l Consensus Statement on e classificationc riteria for definitive anti phospholipid syndrome (APS). JThromb Qjev1000;4:295- 306.Reference Range:Negative: <21 RYRV-2-FUQBH I <10 LORI () The reference interval IGA (test code = reflects a 3SD or 99th GPIIGA) percentileinter amanda.Reference Range:Negative: <26 FACTOR [id number] 20:06:00 Test Item Value Reference Range Interpretation Comments FACTOR V (test code = FAC5) ANTI PHOSPHOLIPID [id number] 15:08:00 Test Item Value Reference Interpretation Comments [...] and i ts performance characteristics determined by [employer]. It has not been cleared or appr [...] clarifi cation isneeded.Perfor med At: [facility] [address] [facility], [place] [id number] r Fermin Lopez MD Ph:[phone] HERBER IGG (test <10 GPL () Reference [...] tive: 36 - 50High Positive : >50 BJMV-1-JXAUK I <10 SMU () The reference interval IGM (test code = reflects a 3SD or 99th GPIIGM) percentileinter amanda, which is thought to repr esent a potentiallyclin ically significant res ult in accordance with theInternationa l Consensus Statement on th e classificationc riteria for definitive anti phospholipid syndrome (APS). JThromb Xxmg6102;4:295- 306.Reference Range:Negative: <33 GYTT-9-KACPZ I <10 SGU () The reference interval IGG (test code = reflects a 3SD or 99th GPIIGG) percentileinter amanda, which is thought to repr esent a potentiallyclin ically significant res ult in accordance with theInternationa l Consensus Statement on th e classificationc riteria for definitive anti phospholipid syndrome (APS). JThromb Lkvx4702;4:295- 306.Reference Range:Negative: <21 WPPZ-4-LURWN I <10 LORI () The reference interval IGA (test code = reflects a 3SD or 99th GPIIGA) percentileinter amanda.Reference Range:Negative: <26 FACTOR [id number] 15:08:00 Test Item Value Reference Range Interpretation Comments FACTOR V (test code = FAC5) [id number] 07:32:00 Test Item Value Reference Range Interpretation Comments GLUBED (test code = GLUBED) 113 MG/DL 70-105 H [id number] 05:56:00 Test Item Value Reference Range Interpretation Comments GLUBED (test code = GLUBED) 112 MG/DL 70-105 H [id number] 23:48:00 Test Item Value Reference Range Interpretation Comments GLUBED (test code = GLUBED) 117 MG/DL 70-105 H [id number] 20:18:00 Test Item Value Reference Range Interpretation Comments CKMB (test code = 2.67 ng/mL 0.97-3.77 INTERPRETA TIVE CKMBT) DATA:Negative o r inconclusive re sults do not exclude myocardialinfar ction. Serial tests at appropriate int ervals may benecessary. [id number] 20:18:00 Test Item Value Reference Range Interpretation Comments TROPONIN-I (test < 0.30 ng/mL 0.00-0.30 N INTERPRETAT MANUEL code = TROPI) DATA:Negative or inconclusive re uslts do not exclude myocardialinfar ction. Serial tests at appropriate int ervals may benecessary. [id number] 18:37:00 Test Item Value Reference Range Interpretation Comments GLUBED (test code = GLUBED) 115 MG/DL 70-105 H [id number] 12:06:00 Test Item Value Reference Range Interpretation Comments GLUBED (test code = GLUBED) 95 MG/DL 70-105 N [id number] 06:50:00 Test Item Value Reference Range Interpretation Comments GLUBED (test code = GLUBED) 108 MG/DL 70-105 H [id number] 00:37:00 Test Item Value Reference Range Interpretation Comments GLUBED (test code = GLUBED) 103 MG/DL 70-105 N [id number] 17:22:00 Test Item Value Reference Range Interpretation Comments GLUBED (test code = GLUBED) 130 MG/DL 70-105 H [id number] 11:17:00 Test Item Value Reference Range Interpretation Comments GLUBED (test code = GLUBED) 113 MG/DL 70-105 H - XR CHEST 1 [id number] 07:42:00 [facility] 1965 Sex: FPatient Name: EMILY ARRINGTON Unit No: [id number] EXAMS: CPT CODE: [id number] XR CHEST 1 V 14536 HISTORY: Shortness of breath Comparison to April 17, 2020 Location code: B2 FINDINGS: Frontal view of the chest demonstrates a mildly enlarged, but stable cardiomediastinal silhouette. The trachea is midline. Mild stable prominence of the pulmonary trunk and pulmonary arteries. The lungs are clear. There is no effusion or pneumothorax. The bones are intact. IMPRESSION: 1. Mild cardiomegaly, withoutacute decompensation. 2. Suggestion of mild pulmonary arterial hypertension at 0742 Reported and signed by: Shabbir Do M.D. CC: Richy Che MD; Pietro Rodney MD Technologist: Milena Brown Time: DAP (Gy m2): Air Kerma (mGy): TrscrDt/Tm: 04/22/2020 (0742) by:[email or web address] Printed Date/Time: 04/22/2020 (0745) Name: [facility] Phys: BOB.Pamela - Pietro Rodney MD [address] : 1965 Age: 55 Sex: [place] [address] Loc: P.0215 1 Exam Date: 04/22/2020 Status: ADM IN PH: FAX: PAGE 1 Signed ReportBASIC METABOLIC [id number] 07:10:00 Test Item Value Reference Range Interpretation [...] code 9.4 mg/dL 8.8-10.2 N = CA) [id number] 07:10:00 Test Item Value Reference Range Interpretation Comments PHOSPHOROUS (test code = PHOS) 3.6 mg/dL 2.7-4.5 N [id number] 07:10:00 Test Item Value Reference Range Interpretation Comments MAGNESIUM (test code = MAG) 2.2 mg/dL 1.4-2.6 N THROMBOPLASTIN TIME [id number] 06:28:00 Test Item Value Reference Range Interpretation Comments THROMBOPLASTIN TIME 70.5 SECONDS 23.8-34.8 H INTERPRE TATIVE PARTIAL (test code = : erapeutic PTT) range: Unfractionated heparin:55 - 80 seconds Argatroban:1.5 to 3 times the basel ine PTT CBC W/AUTO [id number] 06:01:00 Test Item Value Reference Range Interpretation [...] 0.03 x10 3/uL 0.0-0.20 N THROMBOPLASTIN TIME [id number] 22:53:00 Test Item Value Reference Range Interpretation Comments THROMBOPLASTIN TIME 83.5 SECONDS 23.8-34.8 H INTERPRE TATIVE PARTIAL (test code = DATA: erapeutic PTT) range: Unfractionated heparin:55 - 80 seconds Argatroban:1.5 to 3 times the basel ine PTT [id number] 18:01:00 Test Item Value Reference Range Interpretation Comments GLUBED (test code = GLUBED) 109 MG/DL 70-105 H THROMBOPLASTIN TIME [id number] 14:28:00 Test Item Value Reference Range Interpretation Comments THROMBOPLASTIN TIME 37.2 SECONDS 23.8-34.8 H INTERPRE TATIVE PARTIAL (test code = DATA: erapeutic PTT) range: Unfractionated heparin:55 - 80 seconds Argatroban:1.5 to 3 times the basel ine PTT - CTA CHEST FOR [id number] 13:26:00 [facility] 1965 Sex: FPatient Name: EMILY ARRINGTON Unit No: [id number] EXAMS: CPT CODE: [id number] CTA CHEST FOR PE CT angiogram chest with contrast (PE protocol) [...] Pulmonary arteries: There is adequate opacification. There isno filling defect within the pulmonary trunk. There [...] emboli extending from the distal main Name: EMILY ARRINGTON [facility] Phys: ROSAURA - Sebas Ferguson DO [address] : 1965 Age: 55 Sex: [place] [address] Loc: P.0215 1 Exam Date: 04/21/2020 Status: ADM IN PH: FAX: PAGE 1 Signed Report (CONTINUED) Patient Name: EMILY ARRINGTON Unit No: [id number] EXAMS: CPT CODE: [id number] [place] [address] <Continued> pulmonary arteries and into the segmental arteries. There is sparing of the pulmonary trunk. If prior imaging is available, then comparison is recommended. 2. Cardiomegaly. Preliminary findings weregiven to Ana Fonseca RN in the ICU at 1325 hours on 04/21/2020 FOR INTERNAL CODING PURPOSES ONLY RESULT CODE: CVR at 1326 Reported and signed by: BRUCE WARD M.D. CC: Sebas Ferguson DO; Richy Che MD Technologist: VERONIQUE Ruiz([place])(CT) CTDI: 60.88 DLP: 669.3 Trscr Dt/Tm: 04/21/2020 (1326) by:[email or web address] Printed Date/Time: 04/21/2020 (5116) Name: [facility] Phys: Sebas Ferguson DO [address] : 1965 Age: 55 Sex: [place] [address] [facility] [id number] Loc: P.0215 1 Exam Date: 04/21/2020 Status: ADM IN PH: FAX: PAGE 2 Signed [id number] 11:47:00 Test Item Value Reference Range Interpretation Comments GLUBED (test code = GLUBED) 96 MG/DL 70-105 N THROMBOPLASTIN TIME [id number] 05:41:00 Test Item Value Reference Range Interpretation Comments THROMBOPLASTIN TIME 134.8 SECONDS 23.8-34.8 HH Critica l Value PARTIAL (test code = reporte d toFirst PTT) Name:YARI Conway Name:JODI SO MARYLOU READ BACK AND VERIFIEDby HALINA, on 04/21/20, @ 0541.INTERPRETA TIVE DATA:Therapeuti c range: Unfractionated heparin:55 - 80 seconds Argatroban:1.5 to 3 times the basel ine PTT BASIC METABOLIC [id number] 05:37:00 Test Item Value Reference Range Interpretation [...] code 9.2 mg/dL 8.8-10.2 N = CA) [id number] 05:37:00 Test Item Value Reference Range Interpretation Comments PHOSPHOROUS (test code = PHOS) 3.4 mg/dL 2.7-4.5 N [id number] 05:37:00 Test Item Value Reference Range Interpretation Comments MAGNESIUM (test code = MAG) 2.1 mg/dL 1.4-2.6 N CBC W/AUTO [id number] 05:18:00 Test Item Value Reference Range Interpretation [...] = BA#) 0.02 x10 3/uL 0.0-0.20 N [id number] 00:57:00 Test Item Value Reference Range Interpretation Comments GLUBED (test code = GLUBED) 98 MG/DL 70-105 N THROMBOPLASTIN TIME [id number] 23:04:00 Test Item Value Reference Range Interpretation Comments THROMBOPLASTIN TIME 75.1 SECONDS 23.8-34.8 H INTERPRE TATIVE PARTIAL (test code = : erapeutic PTT) range: Unfractionated heparin:55 - 80 seconds Argatroban:1.5 to 3 times the basel ine PTT [id number] 17:41:00 Test Item Value Reference Range Interpretation Comments CKMB (test code = 2.20 ng/mL 0.97-3.77 N INTERPRETA TIVE CKMBT) DATA:Negative o r inconclusive re sults do not exclude myocardialinfar ction. Serial tests at appropriate int ervals may benecessary. [id number] 17:41:00 Test Item Value Reference Range Interpretation Comments TROPONIN-I (test < 0.30 ng/mL 0.00-0.30 N INTERPRETAT MANUEL code = TROPI) DATA:Negative or inconclusive re uslts do not exclude myocardialinfar ction. Serial tests at appropriate int ervals may benecessary. BASIC METABOLIC [id number] 16:57:00 Test Item Value Reference Range Interpretation [...] mg/dL 8.8-10.2 N = CA) COMPREHENSIVE METABOLIC [id number] 16:57:00 Test Item Value Reference Range Interpretation [...] code = 86 U/L 32-104 N ALKP) [id number] 16:57:00 Test Item Value Reference Range Interpretation Comments PHOSPHOROUS (test code = PHOS) 3.1 mg/dL 2.7-4.5 N CREATINE KINASE (CK)2020-04-20 16:57:00 Test Item Value Reference Range Interpretation Comments CREATINE KINASE (CK) (test code = CK) 34 U/L 24-204 N LACTIC DEHYDROGENASE(LDH)2020-04-20 16:57:00 Test Item Value Reference Range Interpretation Comments LACTIC DEHYDROGENASE(LDH) (test code 229 U/L 135-214 H = LDH) [id number] 16:57:00 Test Item Value Reference Range Interpretation Comments MAGNESIUM (test code = MAG) 2.0 mg/dL 1.4-2.6 N LACTIC [id number] 16:52:00 Test Item Value Reference Range Interpretation Comments LACTIC ACID (test 1.4 mmol/L 0.5-2.0 N Effective 03/23/2020, code = LACT) units of measur ement for lactic acidrepo rting switched to mmo l/L from mg/dL. Please n ote the reference range has changed accordi ngly PROTHROMBIN [id number] 16:42:00 Test Item Value Reference Range Interpretation [...] 2.5-3.5recurren t systemic emboli sm. THROMBOPLASTIN TIME [id number] 16:42:00 Test Item Value Reference Range Interpretation Comments THROMBOPLASTIN TIME 36.7 SECONDS 23.8-34.8 H INTERPRE TATIVE PARTIAL (test code = DATA: erapeutic PTT) range: Unfractionated heparin:55 - 80 seconds Argatroban:1.5 to 3 times the basel ine PTT [id number] 16:42:00 Test Item Value Reference Range Interpretation Comments D-DIMER (test 07798 ng/mL 0-500 H THE DDIMER MET HOD IS USED IN code = DDIMER) THE EXCLUSION OF DEEP VEINTHROMBOSIS AND/OR PULMONARY EMBOL ISM AND THE CLINICAL CUT-OF F VALUE FOR EXCLUSION (500 NG/ML FEU) OF THESE CONDITION SIS VALIDATED BY THE MANUFACT URER OF THE METHOD. A NEGAT MANUEL DDIMER RESULT WHEN COM BINED WITH A CLINICALASSESSM ENT OF LOW PRETEST PROBABI LITY HAS BEEN SHOWN TO HAVEA HIGH NEGATIVE PREDICTIVE VALU E OF DVT OR PE. D-DIMER AMANDA UES >500 ng/mL ARE NOT D IAGNOSTIC FOR DVT,PEOR DIC WI THOUT OTHER CONFIRMATORY TE STS AND APPROPRIATECLIN ICAL EVALUATIONS. CBC W/AUTO [id number] 16:31:00 Test Item Value Reference Range Interpretation [...] 0.03 x10 3/uL 0.0-0.20 N ARTERIAL BLOOD [id number] 16:15:00 Test Item Value Reference Range Interpretation [...] <0.8 % 0-1.5 N METHGB) GLUCOSE BEDSIDE [id number] 14:30:00 Test Item Value Reference Range Interpretation Comments GLUCOSE BEDSIDE TESTING (test code = 97 mg/dL 70-110 N GLUBED) GLUCOSE BEDSIDE [id number] 08:08:00 Test Item Value Reference Range Interpretation Comments GLUCOSE BEDSIDE TESTING (test code = 96 mg/dL 70-110 N GLUBED) THROMBOPLASTIN TIME [id number] 04:46:00 Test Item Value Reference Range Interpretation Comments THROMBOPLASTIN TIME PARTIAL 74.3 SECONDS 26-35 H (test code = PTT) CBC W/AUTO [id number] 04:14:00 Test Item Value Reference Range Interpretation [...] NO DIFF/SCN CRITERIA = MDIFF) THROMBOPLASTIN TIME [id number] 20:59:00 Test Item Value Reference Range Interpretation Comments THROMBOPLASTIN TIME PARTIAL 74.2 SECONDS 26-35 H (test code = PTT) GLUCOSE BEDSIDE [id number] 20:20:00 Test Item Value Reference Range Interpretation Comments GLUCOSE BEDSIDE TESTING (test code 122 mg/dL 70-110 H = GLUBED) GLUCOSE BEDSIDE [id number] 17:18:00 Test Item Value Reference Range Interpretation Comments GLUCOSE BEDSIDE TESTING (test code 117 mg/dL 70-110 H = GLUBED) GLUCOSE BEDSIDE [id number] 11:41:00 Test Item Value Reference Range Interpretation Comments GLUCOSE BEDSIDE TESTING (test code = 96 mg/dL 70-110 N GLUBED) GLUCOSE BEDSIDE [id number] 08:05:00 Test Item Value Reference Range Interpretation Comments GLUCOSE BEDSIDE TESTING (test code 105 mg/dL 70-110 N = GLUBED) CBC W/AUTO [id number] 06:29:00 Test Item Value Reference Range Interpretation [...] NO DIFF/SCN CRITERIA = MDIFF) THROMBOPLASTIN TIME [id number] 06:27:00 Test Item Value Reference Range Interpretation Comments THROMBOPLASTIN TIME PARTIAL 46.1 SECONDS 26-35 H (test code = PTT) CBC W/AUTO [id number] 06:25:00 Test Item Value Reference Range Interpretation [...] code = DIFF/SCN CRITERIA MDIFF) THROMBOPLASTIN TIME [id number] 22:38:00 Test Item Value Reference Range Interpretation Comments THROMBOPLASTIN TIME PARTIAL 155.1 SECONDS 26-35 HH (test code = PTT) GLUCOSE BEDSIDE [id number] 20:22:00 Test Item Value Reference Range Interpretation Comments GLUCOSE BEDSIDE TESTING (test code 142 mg/dL 70-110 H = GLUBED) THROMBOPLASTIN TIME [id number] 16:44:00 Test Item Value Reference Range Interpretation Comments THROMBOPLASTIN TIME PARTIAL 88.2 SECONDS 26-35 H (test code = PTT) GLUCOSE BEDSIDE [id number] 15:59:00 Test Item Value Reference Range Interpretation Comments GLUCOSE BEDSIDE TESTING (test code 111 mg/dL 70-110 H = GLUBED) - DUP VEIN [id number] 15:55:00 [facility] : 1965 Sex: F Name: EMILY ARRINGTON [facility] : 1965 Age/S: 55 / F [address] Unit #: [id number] Loc: [place] [address] Phys: Arsen Carballo MD Acct: [id number] Dis Date: Status: ADM IN PHONE #: [phone] Exam Date: 04/18/2020 1530 FAX #: Reason: R/O DVT EXAMS: CPT: [id number] [facility] VEIN [place]T [address] Exam:Bilateral lower extremity duplex venous ultrasound Location: S17 Clinical Indication:55-year-old with tenderness and PE Comparison:None Findings:Duplex ultrasound of the lower extremity veins was performed, including grayscale, color-flow, and spectral waveform analysis. There is lack of compressibility and increased intraluminal echogenicity within the popliteal vein, consistent with nonocclusive DVT. The thrombus extends down into the posterior tibial vein in the calf. The right superficial femoral and common femoral veins are patent. No evidence of DVT in the left lower extremity. Impression: Acute DVT of the right popliteal vein and posterior tibial vein. Findings discussed with Dr. Carballo at 1554 hours. at 1555 Reported and signed by: Liang Duong M.D. CC: Arsen Carballo MD Technologist: Rashmi Pierce [facility] Date/Time: 04/18/2020 (3891) [email or web address] PAGE 1 Signed Report Name: EMILY ARRINGTON : 1965 Age/S: 55 / F [address] Unit #: [id number] Loc: [place] [address] Phys: Arsen Carballo MD Acct: [id number] Dis Date: Status: ADM IN PHONE #: [phone] Exam Date: 04/18/2020 1533 FAX #: Reason: R/O DVT EXAMS: CPT: [id number] DUP VEIN ANT 85242 (Continued) Orig Print D/T: S: 04/18/2020 (5792) Probe: PAGE 2 Signed ReportGLUCOSE BEDSIDE [id number] 11:04:00 Test Item Value Reference Range Interpretation Comments GLUCOSE BEDSIDE TESTING (test code 123 mg/dL 70-110 H = GLUBED) THROMBOPLASTIN TIME [id number] 10:36:00 Test Item Value Reference Range Interpretation Comments THROMBOPLASTIN TIME PARTIAL 205.8 SECONDS 26-35 HH (test code = PTT) GLUCOSE BEDSIDE [id number] 08:11:00 Test Item Value Reference Range Interpretation Comments GLUCOSE BEDSIDE TESTING (test code 110 mg/dL 70-110 N = GLUBED) GLYCOSYLATED HEMOGLOBIN [id number] 04:31:00 Test Item Value Reference Range Interpretation Comments GLYCOSYLATED HEMOGLOBIN (HA1C) 6.2 % A1C 0.0-5.7 H (test code = GLYHGB) ESTIMATED AVERAGE GLUCOSE (test 131 MG/DLest code = EAG) THROMBOPLASTIN TIME [id number] 04:06:00 Test Item Value Reference Range Interpretation Comments THROMBOPLASTIN TIME PARTIAL >400 SECONDS 26-35 HH (test code = PTT) CBC W/AUTO [id number] 03:48:00 Test Item Value Reference Range Interpretation [...] NO DIFF/SCN CRITERIA = MDIFF) GLUCOSE BEDSIDE [id number] 20:41:00 Test Item Value Reference Range Interpretation Comments GLUCOSE BEDSIDE TESTING (test code 126 mg/dL 70-110 H = GLUBED) THROMBOPLASTIN TIME [id number] 18:25:00 Test Item Value Reference Range Interpretation Comments THROMBOPLASTIN TIME PARTIAL 41.3 SECONDS 26-35 H (test code = PTT) CBC W/AUTO [id number] 18:25:00 Test Item Value Reference Range Interpretation [...] (test code NO DIFF/SCN CRITERIA = MDIFF) [id number] 18:15:00 Test Item Value Reference Range Interpretation Comments HEMATOCRIT (test code = HCT) 39.9 % 31.5-44.1 N PLATELET [id number] 18:15:00 Test Item Value Reference Range Interpretation Comments PLATELET COUNT (test code = PLT) 219 K/mm3 150-450 N BASIC METABOLIC [id number] 13:09:00 Test Item Value Reference Range Interpretation [...] = CA) 9.1 MG/DL 8.5-10.1 N PROTHROMBIN [id number] 13:04:00 Test Item Value Reference Range Interpretation Comments PT PATIENT (test code = PTP) 13.9 SECONDS 9.3-12.9 H INTERNATIONAL NORMAL RATIO 1.23 INR Unit 0.8-1.2 H (test code = INR) THROMBOPLASTIN TIME [id number] 13:04:00 Test Item Value Reference Range Interpretation Comments THROMBOPLASTIN TIME PARTIAL 44.8 SECONDS 26-35 H (test code = PTT)
--- NOTE | 2023-04-02 05:08 | EDPHYS ---
Physician Documentation [facility] Name: Isabel Mccabe Age: 58 yrs Sex: Female : 1965 Arrival Date: 04/02/2023 Time: 04:14 Bed 13 Private MD: ED Physician Shivam Omer HPI: 04/02 05:04 This 58 yrs old Black Female presents to ER via Ambulatory with complaints of Leg Pain. laura Historical: - Allergies: 04:32 No Known Allergies; vc1 - PMHx: 04:32 Arthritis; Hypertensive disorder; vc1 - PSHx: 04:32 None; vc1 - Immunization history:: Client reports receiving the 2nd dose of the Covid vaccine. - Social history:: Smoking status: Patient denies any tobacco usage or history of. ROS: 05:05 Constitutional: Negative for fever, chills, and weight loss, Eyes: Negative for injury, laura pain, redness, and discharge, ENT: Negative for injury, pain, and discharge, Neck: Negative for injury, pain, and swelling, Cardiovascular: Negative for chest pain, palpitations, and edema, Respiratory: Negative for shortness of breath, cough, wheezing, and pleuritic chest pain, Abdomen/GI: Negative for abdominal pain, nausea, vomiting, diarrhea, and constipation, : Negative for injury, bleeding, discharge, and swelling, MS/Extremity: Negative for injury and deformity, Skin: Negative for injury, rash, and discoloration, Neuro: Negative for headache, weakness, numbness, tingling, and seizure, Psych: Negative for depression, anxiety, suicide ideation, homicidal ideation, and hallucinations, Allergy/Immunology: Negative for hives, rash, and allergies, Endocrine: Negative for neck swelling, polydipsia, polyuria, polyphagia, and marked weight changes, Hematologic/Lymphatic: Negative for swollen nodes, abnormal bleeding, and unusual bruising, 05:05 Back: Positive for decreased range of motion, pain at rest, pain with movement, radiated pain, of the lumbar area and left low back, Exam: 05:05 Constitutional: This is a well developed, well nourished patient who is awake, alert, laura and in no acute distress. Head/Face: Normocephalic, atraumatic. Eyes: Pupils equal round and reactive to light, extra-ocular motions intact. Lids and lashes normal. Conjunctiva and sclera are non-icteric and not injected. Cornea within normal limits. Periorbital areas with no swelling, redness, or edema. ENT: Nares patent. No nasal discharge, no septal abnormalities noted. Tympanic membranes are normal and external auditory canals are clear. Oropharynx with no redness, swelling, or masses, exudates, or evidence of obstruction, uvula midline. Mucous membranes moist. Neck: Trachea midline, no thyromegaly or masses palpated, and no cervical lymphadenopathy. Supple, full range of motion without nuchal rigidity, or vertebral point tenderness. No Meningismus. Chest/axilla: Normal chest wall appearance and motion. Nontender with no deformity. No lesions are appreciated. Cardiovascular: Regular rate and rhythm with a normal S1 and S2. No gallops, murmurs, or rubs. Normal PMI, no JVD. No pulse deficits. Respiratory: Lungs have equal breath sounds bilaterally, clear to auscultation and percussion. No rales, rhonchi or wheezes noted. No increased work of breathing, no retractions or nasal flaring. Abdomen/GI: Soft, non-tender, with normal bowel sounds. No distension or tympany. No guarding or rebound. No evidence of tenderness throughout. Female : Normal external genitalia. Skin: Warm, dry with normal turgor. Normal color with no rashes, no lesions, and no evidence of cellulitis. MS/ Extremity: Pulses equal, no cyanosis. Neurovascular intact. Full, normal range of motion. Neuro: Awake and alert, GCS 15, oriented to person, place, time, and situation. Cranial nerves II-XII grossly intact. Motor strength 5/5 in all extremities. Sensory grossly intact. Cerebellar exam normal. Normal gait. Psych: Awake, alert, with orientation to person, place and time. Behavior, mood, and affect are within normal limits. 05:05 Back: pain, that is mild, that is moderate, ROM is painful, normal spinal alignment noted, CVA tenderness, is absent, vertebral tenderness, is not appreciated, muscle spasm, is appreciated in the left low back, left mid back, right mid back and right low back, Straight leg raises: left lower extremity illicits pain, at 45 degrees, Vital Signs: 04:30 BP 138 / 91; Pulse 96; Resp 20; Temp 98.6; Pulse Ox 99% ; Weight 122.47 kg; Height 5 vc1 ft. 5 in. ; Pain 10/10; 05:00 BP 125 / 82; Pulse 89; Resp 20; Pulse Ox 100% ; vc1 04:30 Body Mass Index 44.93 (122.47 kg, 165.1 cm) vc1 04:30 Pain Scale: Adult vc1 MDM: 04:21 Patient medically screened. [facility] 05:06 Differential diagnosis: contusion, abrasion, tendonitis. Data reviewed: vital signs, [facility] nurses notes, old medical records, lab test result(s). Consideration of Admission/Observation Escalation of care including admission/observation considered. I considered the following discharge prescriptions or medication management in the emergency department Medications were administered in the Emergency Department. See MAR. Test considered but Not performed: Labs: no labs, 02/18. Care significantly affected by the following chronic conditions: Hypertension, Obesity, oa. Administered Medications: 05:27 Drug: Ketorolac IM 60 mg IM once Route: IM; Site: left ventrogluteal; jw7 05:28 Drug: Dexamethasone IM 10 mg IM once Route: IM; Site: left deltoid; jw7 Disposition Summary: 04/02/23 05:07 Discharge Ordered Notes: Location: Home [facility] Problem: new laura Symptoms: have improved laura Condition: Stable laura Diagnosis - Sciatica, left side laura - Obesity, unspecified laura Followup: laura - With: Private Physician - When: 2 - 3 days - Reason: Recheck today's complaints, Continuance of care, Re-evaluation by your physician Discharge Instructions: - Discharge Summary Sheet laura - Obesity, Adult laura - Sciatica laura - Sciatica, [id number] laura - Back Exercises, [id number]-[id number] laura - Exercising to Lose Weight laura - Obesity, Adult, [id number] [facility] Forms: - Medication Reconciliation Form [facility] - Thank You Letter [facility] - Antibiotic Education [facility] - Prescription Opioid Use [facility] - Patient Portal Instructions [facility] - Leadership Thank You Letter [facility] Prescriptions: - acetaminophen-codeine 300-30 mg Oral tablet - take 2 tablet ORAL route every 6 hours; 20 tablet; Refills: 0, Product laura Selection Permitted - dexamethasone 2 mg Oral tablet - take 1 tablet ORAL route every 12 hours; 8 tablet; Refills: 0, Product laura Selection Permitted - diclofenac sodium 25 mg Oral tablet, delayed release (enteric coated) - take 1 tablet ORAL route 3 times per day; 30 tablet; Refills: 0, Product [facility] Selection Permitted - Valium 5 mg Oral Tablet - take 1 tablet ORAL route every 8 hours As needed; 20 tablet; Refills: 0, [facility] Product Selection Permitted Signatures: Shivam Omer, Hanna Delgado MD, cha RN RN vc1 Rosa Hagen RN RN jw7
--- NOTE | 2023-04-02 05:08 | ER ---
Nurse's Notes [facility] Name: Isabel Mccabe Age: 58 yrs Sex: Female : 1965 Arrival Date: 04/02/2023 Time: 04:14 Bed 13 Private MD: Diagnosis: Sciatica, left side;Obesity, unspecified Presentation: 04/02 04:30 Chief complaint: Patient states: I was here the for the same thing. Sciatic nerve vc1 pain to my left hip that radiates down my thigh and leg. I was referred to a nerve Dr. but they can't get me in until the . Coronavirus screen: Vaccine status: Patient reports receiving the 2nd dose of the covid vaccine. all boosters; [employer] Client denies travel out of the [place] in the last 14 days. At this time, the client does not indicate any symptoms associated with coronavirus-19. Ebola Screen: Patient negative for fever greater than or equal to 101.5 degrees Fahrenheit, and additional compatible Ebola Virus Disease symptoms Patient denies exposure to infectious person. Patient denies travel to an Ebola-affected area in the 21 days before illness onset. No symptoms or risks identified at this time. Initial Sepsis Screen: Does the patient meet any 2 criteria? HR > 90 bpm. No. Patient's initial sepsis screen is negative. Does the patient have a suspected source of infection? No. Patient's initial sepsis screen is negative. Risk Assessment: Do you want to hurt yourself or someone else? Patient reports no desire to harm self or others. Onset of symptoms is unknown. 04:30 Method Of Arrival: Ambulatory vc1 04:30 Acuity: PRADIP 3 vc1 Triage Assessment: 04:33 General: Appears in no apparent distress. uncomfortable, obese, Behavior is calm, vc1 cooperative, appropriate for age. Pain: Complains of pain in left hip Pain radiates to left leg Pain currently is 10 out of 10 on a pain scale. Quality of pain is described as sharp, Pain began week Noted to be grimacing, resistant to movement. EENT: No deficits noted. No signs and/or symptoms were reported regarding the EENT system. Neuro: Level of Consciousness is awake, alert, obeys commands, Oriented to person, place, time, situation, Appropriate for age. Cardiovascular: No deficits noted. Respiratory: Airway is patent Respiratory effort is even, unlabored, Respiratory pattern is regular, symmetrical. GI: No deficits noted. No signs and/or symptoms were reported involving the gastrointestinal system. : No deficits noted. No signs and/or symptoms were reported regarding the genitourinary system. Derm: No deficits noted. No signs and/or symptoms reported regarding the dermatologic system. Musculoskeletal: Reports pain in left leg. Historical: - Allergies: 04:32 No Known Allergies; vc1 - PMHx: 04:32 Arthritis; Hypertensive disorder; vc1 - PSHx: 04:32 None; vc1 - Immunization history:: Client reports receiving the 2nd dose of the Covid vaccine. - Social history:: Smoking status: Patient denies any tobacco usage or history of. Screenin:34 [facility] ED Fall Risk Assessment (Adult) History of falling in the last 3 months, vc1 including since admission No falls in past 3 months (0 pts) Confusion or Disorientation No (0 pts) Intoxicated or Sedated No (0 pts) Impaired Gait Yes (1 pt) Mobility Assist Device Used Yes (1 pt) Altered Elimination No (0 pt) Score/Fall Risk Level 0 - 2 = Low Risk Oriented to surroundings, Maintained a safe environment, Educated pt \T\ family on fall prevention, incl call for assistance when getting out of bed. Abuse screen: Denies threats or abuse. Nutritional screening: No deficits noted. Tuberculosis screening: No symptoms or risk factors identified. Assessment: 05:44 Reassessment: Patient and/or family updated on plan of care and expected duration. Pain vc1 level reassessed. Patient is alert, oriented x 3, equal unlabored respirations, skin warm/dry/pink. Patient states feeling better. Patient states symptoms have improved. Vital Signs: 04:30 BP 138 / 91; Pulse 96; Resp 20; Temp 98.6; Pulse Ox 99% ; Weight 122.47 kg; Height 5 vc1 ft. 5 in. ; Pain 10/10; 05:00 BP 125 / 82; Pulse 89; Resp 20; Pulse Ox 100% ; vc1 04:30 Body Mass Index 44.93 (122.47 kg, 165.1 cm) vc1 04:30 Pain Scale: Adult vc1 ED Course: 04:18 Patient arrived in ED. gm2 04:21 Shivam Omer MD is Attending Physician. [facility] 04:32 Triage completed. vc1 04:33 Arm band placed on right wrist. vc1 04:35 Patient has correct armband on for positive identification. Bed in low position. Call vc1 light in reach. Pulse ox on. NIBP on. 04:49 Rosa Hagen, RN is Primary Nurse. jw 05:44 No provider procedures requiring assistance completed. Patient did not have IV access vc1 during this emergency room visit. Administered Medications: 05:27 Drug: Ketorolac IM 60 mg IM once Route: IM; Site: left ventrogluteal; jw7 05:28 Drug: Dexamethasone IM 10 mg IM once Route: IM; Site: left deltoid; jw7 Medication: 04:35 VIS not applicable for this client. vc1 Outcome: 05:07 Discharge ordered by . [facility] 05:44 Discharged to home ambulatory, vc1 05:44 Condition: improved 05:44 Discharge instructions given to patient, Instructed on discharge instructions, follow up and referral plans. medication usage, Demonstrated understanding of instructions, follow-up care, medications, Prescriptions given X 4, 05:44 Patient left the ED. vc1 Signatures: Shivam Omer MD MD cha Calcote, Vanessa, RN RN vc1 Rosa Hagen, RN RN [facility] Serenity Mirza 2
[2023-04-02] MEDS ORDERED: KETOROLAC 30 MG/ML INJ ONE (05:24)
[2023-04-02] MEDS ORDERED: dexAMETHasone 10 MG/ML VIAL ONE (05:24)
[2023-04-02 05:49] VITALS: TEMP 98.6
[2023-04-02 05:51] VITALS: BP 125/82; O2SAT 100
== END 2023-04-02 05:44 | disposition home or self-care (01) ==
LOC: ER 04:14
DX: M54.32 Sciatica, left side (principal); E66.9 Obesity, unspecified; Z68.41 Body mass index [BMI] 40.0-44.9, adult
CPT/HCPCS: 96372; 99284; J1100

== ENCOUNTER 2024-04-02 19:48 | Emergency (ER) | payer OTHER ==
--- OUTSIDE RECORDS SUMMARY | 2024-04-02 19:51 | XMS REPORT | Clinical Summary ---
Author Name Unknown Organization [facility] Address [address] [place] [address] Care Team Providers Care Lead Laying And Gluing Machine Operator Name Role Phone Shree Cardoso MD Unavailable [phone] Rosibel Mcdonald MD Unavailable Unavailable Jasmin Hugo MD Primary Care Provider + [phone] Tomás Dykes MD Unavailable [phone] Ariella Hopkins MD Unavailable + Allergies No known active allergies Medications Medication Sig Dispensed Refills Start Date End Date Status aspirin 81 mg EC tablet Take 1 tablet (81 mg) by mouth daily. Active Xarelto 20 mg tablet TAKE 1 TABLET BY MOUTH EVERY DAY 09/07/2021 Active allopurinol (ZYLOPRIM) 100 mg tablet Take 1 tablet (100 mg) by mouth as needed. 10/16/2022 Active diazePAM (VALIUM) 5 mg tablet Take 1 tablet (5 mg) by mouth as needed. 04/02/2023 Active gabapentin (NEURONTIN) 600 mg tablet Take 1 tablet (600 mg) by mouth twice daily. 07/05/2023 Active metoprolol succinate (TOPROL XL) 50 mg 24 hr tablet Take 1 tablet (50 mg) by mouth daily. 07/03/2023 Active pregabalin (LYRICA) 50 mg capsule Take 1 capsule (50 mg) by mouth daily. 07/07/2023 Active Mounjaro 15 mg/0.5 mL injection Inject 15 mg under the skin once a week. 07/07/2023 Active magnesium oxide (MAOX) 400 mg tablet Take 1 tablet (400 mg) by mouth daily. Active multivit-minerals/ folic acid (ONE-A-DAY WOMEN'S 50 PLUS ORAL) Take 1 capsule by mouth daily. Active cholecalciferol, vitamin D3, (VITAMIN D3 ORAL) Take 1 tablet by mouth daily. 07/30/2023 Discontinued lisinopril-hydroch lorothiazide (PRINZIDE,ZESTORET IC) 20-12.5 mg per tablet Take 1 tablet by mouth daily. 12/26/2017 07/30/2023 Discontinued Active Problems Problem Noted Date Diagnosed Date Endometrium thickened 06/16/2019 Postmenopausal bleeding 09/28/2018 Morbid obesity 09/27/2018 Dysfunctional uterine bleeding 09/27/2018 Hypertension 09/27/2018 Encounters Date Type Department Care Team Description 02/09/2024 3:30 PM CDT POEM Appointments [facility] [address] [place] [address], [facility] [place] [address] Jasmin Hugo MD 12/22/2023 Telephone MD [facility] in [address] [address] Renetta Degroot RN 11/23/2023 11:59 PM CDT Anesthesia Event [facility] [address] [place] [address], [facility] [place] [address] Romina Farrar, RN 10/28/2023 Orders Only MD [facility] in [address] [address] Yi Merlos PA Screening mammography (Primary Dx) 10/18/2023 9:05 AM CDT Ancillary Procedure MD [facility]mer [address] [address] Yi Merlos PA Screening mammography 10/18/2023 Travel 08/17/2023 Prep for Surgery MD [facility] in [address] [address] Gely Oneill PA Postmenopausal bleeding (Primary Dx); Endometrium thickened; Hypertension; Morbid obesity 08/17/2023 Orders Only MD [facility] in [facility] [address] [place] [address] Gely Oneill PA Postmenopausal bleeding (Primary Dx); Endometrium thickened; Hypertension; Morbid obesity 08/09/2023 Telephone MD [facility] in [address] [address] Renetta Degroot RN 07/30/2023 10:00 AM DJANGO DEVELOPER Consult MD [facility] in [address] [address] Jasmin Hugo MD Postmenopausal bleeding (Primary Dx); Screening mammography 07/30/2023 Travel 07/16/2023 2:15 PM DJANGO DEVELOPER Ancillary Procedure MD [facility]mer [address] [address] Jasmin Hugo MD Endometrium thickened; Postmenopausal bleeding 07/16/2023 1:15 PM DJANGO DEVELOPER Ancillary Procedure MD [facility]mer [address] [address] Jasmin Hugo MD Endometrium thickened; Postmenopausal bleeding 07/16/2023 Travel after 04/03/2023 Surgical History Surgery Date Site/Laterality Comments CHOLECYSTECTOMY 05/31/1988 - 05/30/1989 open Medical History Medical History Date Comments Hypertension Cyst of breast Arthritis Other pulmonary embolism without acute cor pulmo nale 2019 vs 2020 Type 2 diabetes mellitus with hyperglycemia Family History Medical History Relation Name Comments Breast cancer Paternal Aunt Breast cancer Sister Lexie Miller Relation Name Status Comments Paternal Aunt Sister Lexie Miller Social History Tobacco Use Types Packs/Day Years Used Date Smoking Tobacco: Never Smokeless Tobacco: Never Tobacco Cessation:Counseling Given: Not Answered Alcohol Use Standard Drinks/Week Comments Yes 0 (1 standard drink = 0.6 oz pur e alcohol) Occasional drinker Sex and Gender Information Value Date Recorded Sex Assigned at Not on file Gender Identity Not on file Sexual Orientation Not on file Job Start Date Occupation Industry Not on file Not on file Not on file Obstetrics History Para Term AB IAB SAB Ectopic Multiple Livin g Live Births Date Outcome GA Total Labor Labor/2nd/3rd Weight Sex Type Anes PTL Chitra A1 A5 Name Clin Term Comments Normal vaginal delivery- 199 1 Last Filed Vital Signs Vital Sign Reading Time Taken Comments Blood Pressure 139/79 07/30/2023 9:33 AM DJANGO DEVELOPER Pulse 82 07/30/2023 9:33 AM DJANGO DEVELOPER Temperature 36.7 C (98 F) 07/30/2023 9:33 AM DJANGO DEVELOPER Respiratory Rate 18 07/30/2023 9:33 AM DJANGO DEVELOPER Oxygen Saturation - - Inhaled Oxygen Concentration - - Weight 122.3 kg (269 lb 10 oz) 07/30/2023 9:33 A M DJANGO DEVELOPER Height - - Body Mass Index 51.17 09/28/2018 2:22 PM CDT Plan of Treatment Upcoming Encounters Date Type Department Care Team (Late st Contact Info) Description 10/19/2024 10:05 AM CDT Appointment Mammography [address] [facility], [address] [place] [address] Yi Merlos PA [facility] [place] [address] [email or web address] Maintenance Due Date Last Done Comments COVID-19 Vaccine (2023-2 5 season) 2024 09/07/2020, 08/17/2020 Influenza Vaccine (#1) 2024 05/10/2020 Pneumococcal Vaccine: Pediatrics (0 to 5 Years) and At-Risk Patients (6 to 64 Years) Aged Out No longer eligible b ased on patient's age to complete this topic Procedures Procedure Name Priority Date/Time Associated Diagnosis Comments MAMMO DIGITAL SCREENING BILATERAL W JACK Routine 10/18/2023 9:27 AM CDT Screening mammography PATHOLOGY BIOPSY INTERPRETATION Routine 07/30/2023 10:50 AM DJANGO DEVELOPER Postmenopausal bleeding US TRANSVAGINAL Routine 07/16/2023 2:40 PM DJANGO DEVELOPER Endometrium thickened Postmenopausal bleeding US PELVIS LIMITED Routine 07/16/2023 2:3 0 PM DJANGO DEVELOPER Endometrium thickened Postmenopausal bleeding after 04/03/2023 Results * Screening Mammogram w Jack - Bilateral (10/18/2023 9:27 AM CDT) Anatomical Region Laterality Modality Breast Bilateral Mammography 10/18/2023 9:53 AM CDT Impressions 10/18/2023 9:53 AM CDT There is no mammographic evidence of malignancy. Follow-up mammogram in 1 year is recommended. BI-RADS Category 2: Benign Finding(s) Narrative 10/18/2023 9:53 AM CDT CLINICAL INDICATION: Patient is a 58 year old female and is seen for screening. MAMMO DIGITAL SCREENING BILATERAL W JACK Digital Mammogram evaluated with Computer Aided Detection (CAD). COMPARISON: The present examination has been compared to prior imaging studies performed at an outside location on 04/04/2018 and 06/19/2019, and at [facility] on 02/03/2022. FINDINGS: The breasts are almost entirely fatty. 1: There is a post surgical scar in the upper inner region of the right breast. 2: There are multiple similar stable oval masses in both breasts. No dominant mass, distortion, or suspicious calcifications are identified. Tomosynthesis performed in CC and MLO projections. Procedure Note Salvatore Fuller MD - 10/18/2023 CLINICAL INDICATION: Patient is a 58 year old female and is seen for screening. MAMMO DIGITAL SCREENING BILATERAL W JACK Digital Mammogram evaluated with Computer Aided Detection (CAD). COMPARISON: The present examination has been compared to prior imaging studiesperformed at an outside location on 04/04/2018 and 06/19/2019, and at [facility] on 02/03/2022. FINDINGS: The breasts are almost entirely fatty. 1: There is a post surgical scar in the upper inner region of the rightbreast. 2: There are multiple similar stable oval masses in both breasts. No dominant mass, distortion, or suspicious calcifications areidentified. Tomosynthesis performed in CC and MLO projections. IMPRESSION: There is no mammographic evidence of malignancy. Follow-up mammogram in 1 year is recommended. BI-RADS Category 2: Benign Finding(s) Yi FLOWERS G MAMMOGRAPHY ORDE LUZ ELENA * Pathology Biopsy Interpretation (07/30/2023 10:50 AM DJANGO DEVELOPER) Submitted Clinical History Postmenopausal bleeding [N95.0] 08/03/2023 1:24 PM DJANGO DEVELOPER [facility] Diagnosis A: Endometrium: Fragments of endometrial polyp. Background inactive endometrium with marked tubal metaplasia. Fragments of squamous epithelium with metaplastic changes. NH/FQS 08/03/2023 1:24 PM DJANGO DEVELOPER [facility] Gross Description A: Endometrium: Multiple fontenot-pink to red-brown pieces of tissue and blood clot measuring 1.5 x 1.0 x 0.3 cm in aggregate, entirely submitted in A1. GM 08/03/2023 1:24 PM DJANGO DEVELOPER [facility] Biomarker Block(s) N/A 08/03/2023 1:24 PM DJANGO DEVELOPER [facility] Disclaimer "Some tests reported here may have been developed and performance characteristics determined by [facility]. These tests have not been specifically cleared or approved by the U.S. Food and Drug Administration. If applicable, controls were reviewed and showed appropriate reactivity." 08/03/2023 1:24 PM DJANGO DEVELOPER [facility] Tissue (Endometrium) Non-blood Collection / Unknown 07/30/2023 10:50 AM DJANGO DEVELOPER 07/30/2023 12:48 PM DJANGO DEVELOPER [facility] PATHOLOGY ORDERA [facility] Organization Address City/State/ZIP Co de Phone Number [facility] [address] [place] [id number], [place] * US Transvaginal (07/16/2023 2:40 PM DJANGO DEVELOPER) Anatomical Region Laterality Modality Pelvis Ultrasound 07/16/2023 4:26 PM DJANGO DEVELOPER Impressions 07/16/2023 4:30 PM DJANGO DEVELOPER Minimal thickening of the endometrium is noted, measuring up to 0.7 cm in maximal thickness. Numerous fibroids are seen in the uterus. The ovaries appear normal. ACTIONABLE ITEMS/RECOMMENDATIONS*: See Impression [This document was created using a voice recognition transcribing system. Incorrect words or phrases may have been missed during proof reading. Please interpret accordingly. Please contact me for clarifications if necessary] Narrative 07/16/2023 4:30 PM DJANGO DEVELOPER FULL RESULT: Examination: US PELVIS LIMITED, US TRANSVAGINAL on 07/16/2023 2:30 PM Clinical History: Endometrium thickened. Indication: Postmenopausal bleeding Comparison: None. Technique: Transabdominal and transvaginal ultrasound scan of the pelvis was performed. Findings: Uterus: The uterus measures 7.9 x 4.3 x 5.4 cm. Numerous fibroids are noted in the myometrium. The cervix is within normal limits. Endometrium: Minor distortion of the endometrium is noted due to fibroids. The endometrium measures up to 0.7 cm in maximal thickness, upper limits of normal. The right ovary: The right ovary measures 2.1 x 1.1 x 2.3 cm and is within normal limits. The left ovary: The left ovary measures 2.6 x 1.1 x 2.4 cm and is within normal limits. Fluid: No free fluid in the pelvis. Procedure Note Giovanni Sifuentes MD - 07/16/2023 FULL RESULT: Examination: US PELVIS LIMITED, US TRANSVAGINAL on 07/16/2023 2:30 PM Clinical History: Endometrium thickened. Indication: Postmenopausal bleeding Comparison: None. Technique: Transabdominal and transvaginal ultrasound scan of the pelviswas performed. Findings: Uterus: The uterus measures 7.9 x 4.3 x 5.4 cm. Numerous fibroids arenoted in the myometrium. The cervix is within normal limits. Endometrium: Minor distortion of the endometrium is noted due to fibroids.The endometrium measures up to 0.7 cm in maximal thickness, upper limitsof normal. The right ovary: The right ovary measures 2.1 x 1.1 x 2.3 cm and is withinnormal limits. The left ovary: The left ovary measures 2.6 x 1.1 x 2.4 cm and is withinnormal limits. Fluid: No free fluid in the pelvis. IMPRESSION: Minimal thickening of the endometrium is noted, measuring up to 0.7 cm inmaximal thickness. Numerous fibroids are seen in the uterus. The ovaries appear normal. ACTIONABLE ITEMS/RECOMMENDATIONS*: See Impression [This document was created using a voice recognition transcribing system.Incorrect words or phrases may have been missed during proof reading.Please interpret accordingly. Please contact me for clarifications ifnecessary] Jasmin Hugo MD IMG US ORDERABLES * US Pelvis Limited (07/16/2023 2:30 PM DJANGO DEVELOPER) Anatomical Region Laterality Modality Pelvis Ultrasound 07/16/2023 4:26 PM DJANGO DEVELOPER Impressions 07/16/2023 4:30 PM DJANGO DEVELOPER Minimal thickening of the endometrium is noted, measuring up to 0.7 cm in maximal thickness. Numerous fibroids are seen in the uterus. The ovaries appear normal. ACTIONABLE ITEMS/RECOMMENDATIONS*: See Impression [This document was created using a voice recognition transcribing system. Incorrect words or phrases may have been missed during proof reading. Please interpret accordingly. Please contact me for clarifications if necessary] Narrative 07/16/2023 4:30 PM DJANGO DEVELOPER FULL RESULT: Examination: US PELVIS LIMITED, US TRANSVAGINAL on 07/16/2023 2:30 PM Clinical History: Endometrium thickened. Indication: Postmenopausal bleeding Comparison: None. Technique: Transabdominal and transvaginal ultrasound scan of the pelvis was performed. Findings: Uterus: The uterus measures 7.9 x 4.3 x 5.4 cm. Numerous fibroids are noted in the myometrium. The cervix is within normal limits. Endometrium: Minor distortion of the endometrium is noted due to fibroids. The endometrium measures up to 0.7 cm in maximal thickness, upper limits of normal. The right ovary: The right ovary measures 2.1 x 1.1 x 2.3 cm and is within normal limits. The left ovary: The left ovary measures 2.6 x 1.1 x 2.4 cm and is within normal limits. Fluid: No free fluid in the pelvis. Procedure Note Giovanni Sifuentes MD - 07/16/2023 FULL RESULT: Examination: US PELVIS LIMITED, US TRANSVAGINAL on 07/16/2023 2:30 PM Clinical History: Endometrium thickened. Indication: Postmenopausal bleeding Comparison: None. Technique: Transabdominal and transvaginal ultrasound scan of the pelviswas performed. Findings: Uterus: The uterus measures 7.9 x 4.3 x 5.4 cm. Numerous fibroids arenoted in the myometrium. The cervix is within normal limits. Endometrium: Minor distortion of the endometrium is noted due to fibroids.The endometrium measures up to 0.7 cm in maximal thickness, upper limitsof normal. The right ovary: The right ovary measures 2.1 x 1.1 x 2.3 cm and is withinnormal limits. The left ovary: The left ovary measures 2.6 x 1.1 x 2.4 cm and is withinnormal limits. Fluid: No free fluid in the pelvis. IMPRESSION: Minimal thickening of the endometrium is noted, measuring up to 0.7 cm inmaximal thickness. Numerous fibroids are seen in the uterus. The ovaries appear normal. ACTIONABLE ITEMS/RECOMMENDATIONS*: See Impression [This document was created using a voice recognition transcribing system.Incorrect words or phrases may have been missed during proof reading.Please interpret accordingly. Please contact me for clarifications ifnecessary] Jasmin Hugo MD [facility] ORDERABLES after 04/03/2023 Care Teams Lead Laying And Gluing Machine Operator Relationship Specialty Start Date End Date Shree Cardoso [place] [place] [address] [email or web address] PCP - External Referring Obstetrics/Gynecology 09/22/18 Rosibel Mcdonald MD [address] [place] [address] PCP - External Primary Care Provider Internal Medicine 09/22/18 Jasmin Hugo MD [address] [place] [address] [email or web address] PCP - General Gynecological Oncology 09/28/18 Tomás Dykes MD [address] [place] [id number] [email or web address] 04/17/22 Ariella Hopkins MD [address] [place] [phone] [email or web address] Consulting Physician Breast Surgery 01/30/22
[2024-04-02] MEDS ORDERED: methocarbamoL 750 MG TAB ONE (20:12)
[2024-04-02] MEDS ORDERED: IBUPROFEN 400 MG TAB ONE (20:13)
[2024-04-02] MEDS ORDERED: HYDROCODONE/APAP 5/325 MG TAB ONE (20:13)
[2024-04-02 20:29] LABS: Absolute Eosinophils 0.1 K/uL (0-0.5); Absolute Monocytes 0.4 K/uL (0.1-1.3); Absolute Neutrophil 4.5 K/uL (1.8-8.0); Basophils % 0.5 % (0-1.3); Eosinophils % 1.4 % (0-4.4); Hematocrit 39.1 % (36.0-45.0); Hemoglobin 12.9 g/dL (12.0-15.0); Lymphocytes % 16.4 % (15.3-44.8); MCH 29.3 pg (27.0-35.0); MCHC 33.1 g/dL (32.0-36.0); MCV 88.7 fL (80-100); Monocytes % 5.9 % (3.3-12.3); Neutrophils % 75.8 % (41.7-73.7); Platelets 210 thou/uL (152-406); Red Cell Distribution Width 14.1 % (12.1-15.2)
[2024-04-02 20:32] LABS: PT Prothrombin Time 19.2 SECONDS (9.4-12.5); Protime INR 1.74
--- NOTE | 2024-04-02 20:47 | RAD REPORT ---
EXAM: Knee Left 2 View INDICATION: pain in left knee , arthritis COMPARISON: None FINDINGS: No acute fracture. No significant knee effusion. Tricompartmental degenerative changes which are at least moderate in all 3 compartments Other: n/a IMPRESSION: No evidence of acute osseous abnormality involving the imaged knee.
--- NOTE | 2024-04-02 20:48 | RAD REPORT ---
EXAM: Knee Right 2 View INDICATION: pain in knee COMPARISON: None FINDINGS: No acute fracture. Small to moderate knee effusion. Tricompartmental degenerative changes which are [id number] in the medial compartment, mild late ral compartment, and moderate in the patellofemoral compartment. Other: n/a IMPRESSION: No evidence of acute osseous abnormality involving the imaged knee. Tricompartmental dege nerative changes. Small to moderate nonspecific knee effusion.
[2024-04-02 20:50] LABS: Albumin 2.9 g/dL (3.4-5.0); Albumin/Globulin Ratio 0.6 (1.1-1.8); Anion Gap 6.7 mEq/L (5.0-15.0); Bilirubin Direct 0.2 mg/dL (0-0.2); Bilirubin Indirect, Calculated 0.8 mg/dL (0.2-0.8); Globulin 4.6 g/dL (2.3-3.5); Potassium 3.7 mEq/L (3.5-5.1); Protein, Total 7.5 g/dL (6.4-8.2); Troponin High Sensitivity 4.1 pg/mL (<58.9)
--- NOTE | 2024-04-02 21:55 | ER ---
Nurse's Notes [facility] Name: Isabel Mccabe Age: 59 yrs Sex: Female : 1965 Arrival Date: 04/02/2024 Time: 19:48 Bed 7 Private MD: Diagnosis: Right knee degenerative arthritis, left knee degenerative arthritis, acute musculoskeletal pain of the right thigh and knee, physical deconditioning Presentation: 04/02 19:52 Chief complaint: EMS states: patient c/o bilat knee pain, has been an ongoing issue but al5 had an ultrasound done to r/o DVT on Wednesday and the pain has only gotten worse. Coronavirus screen: At this time, the client does not indicate any symptoms associated with coronavirus-19. Ebola Screen: No symptoms or risks identified at this time. Initial Sepsis Screen: Does the patient meet any 2 criteria? No. Patient's initial sepsis screen is negative. Does the patient have a suspected source of infection? No. Patient's initial sepsis screen is negative. Risk Assessment: Do you want to hurt yourself or someone else? Patient reports no desire to harm self or others. Onset of symptoms was March 31, 2024. 19:52 Method Of Arrival: EMS: [facility] al5 19:52 Acuity: PRADIP 3 al5 Triage Assessment: 19:59 General: Appears in no apparent distress. uncomfortable, Behavior is calm, cooperative. al5 Pain: Complains of pain in right leg and left leg Pain currently is 10 out of 10 on a pain scale. EENT: No signs and/or symptoms were reported regarding the EENT system. Neuro: Level of Consciousness is awake, alert, obeys commands, Oriented to person, place, time, situation. Cardiovascular: Capillary refill < 3 seconds Patient's skin is warm and dry. bilateral lower extremity edema. Respiratory: Airway is patent Respiratory effort is even, unlabored, Respiratory pattern is regular, symmetrical. GI: Abdomen is obese. : No signs and/or symptoms were reported regarding the genitourinary system. Derm: Skin is intact, is healthy with good turgor, Skin is pink, warm \T\ dry. normal, bilateral lower extremity edema. Musculoskeletal: Reports pain in right knee and left knee since wednesday. Historical: - Allergies: 19:58 No Known Allergies; al5 - PMHx: 19:58 Arthritis; Hypertensive disorder; Diabetes mellitus; Congestive heart failure; al5 - PSHx: 19:58 None; al5 - Immunization history:: Adult Immunizations up to date. - Infectious Disease History:: Denies. - Social history:: Smoking status: Patient denies any tobacco usage or history of. Screenin:01 [facility] ED Fall Risk Assessment (Adult) History of falling in the last 3 months, al5 including since admission No falls in past 3 months (0 pts) Confusion or Disorientation No (0 pts) Intoxicated or Sedated No (0 pts) Impaired Gait Yes (1 pt) Mobility Assist Device Used Yes (1 pt) Altered Elimination No (0 pt) Score/Fall Risk Level 0 - 2 = Low Risk Oriented to surroundings, Maintained a safe environment, Hourly rounding (assess needs \T\ fall precautionary measures) done. Abuse screen: Denies threats or abuse. Denies injuries from another. Nutritional screening: No deficits noted. Tuberculosis screening: No symptoms or risk factors identified. Assessment: 20:01 Reassessment: see triage assessment. al5 21:05 Reassessment: Patient appears in no apparent distress at this time. No changes from al5 previously documented assessment. Patient and/or family updated on plan of care and expected duration. Pain level reassessed. Patient is alert, oriented x 3, equal unlabored respirations, skin warm/dry/pink. 22:58 Reassessment: Patient appears in no apparent distress at this time. No changes from al5 previously documented assessment. Patient and/or family updated on plan of care and expected duration. Pain level reassessed. Patient is alert, oriented x 3, equal unlabored respirations, skin warm/dry/pink. pain has decreased. 23:21 Reassessment: Patient is alert/active/playful, equal unlabored respirations, skin mt4 warm/dry/pink. General: Appears in no apparent distress. obese, Behavior is calm, cooperative, appropriate for age. Pain: Complains of pain in right leg and left leg. Vital Signs: 19:40 BP 139 / 59; Pulse 96; Resp 18; Pulse Ox 99% on R/A; al5 19:52 BP 139 / 59; Pulse 93; Resp 18; Temp 100; Pulse Ox 100% on R/A; Weight 131.54 kg; al5 Height 5 ft. 5 in. ; 20:00 BP 136 / 95; Pulse 94; Resp 18; Pulse Ox 98% on R/A; al5 20:30 BP 121 / 78; Pulse 87; Resp 18; Pulse Ox 99% on R/A; al5 21:00 BP 117 / 68; Pulse 83; Resp 18; Pulse Ox 100% on R/A; al5 22:03 BP 114 / 67; Pulse 83; Resp 17 S; Pulse Ox 98% on R/A; Pain 8/10; mt4 22:57 BP 107 / 81; Pulse 84; Resp 20; Pulse Ox 99% on R/A; mt4 19:52 Body Mass Index 48.26 (131.54 kg, 165.1 cm) al5 22:03 Pain Scale: Adult mt4 [place] Coma Score: 20:28 Eye Response: spontaneous(4). Motor Response: obeys commands(6). Verbal Response: sp4 oriented(5). Total: 15. ED Course: 19:52 Patient arrived in ED. al5 19:53 Jez Lui MD is Attending Physician. sp4 19:55 Triage completed. al5 20:00 Arm band placed on right wrist. Patient placed in the treatment room, on a stretcher. al5 20:02 Patient has correct armband on for positive identification. Bed in low position. Call al5 light in reach. Side rails up X2. Provided Education on: plan of care. 20:02 No provider procedures requiring assistance completed. al5 20:10 Ana Mayen, ANISA is Primary Nurse. al5 20:42 Knee Right 2 View XRAY In Process Unspecified. EDMS 20:42 Knee Left 2 View XRAY In Process Unspecified. EDMS 21:55 Siva Saldana MD is Referral Physician. sp4 23:21 No apparent distress. Resting quietly. mt4 23:21 IV discontinued, intact, bleeding controlled, No redness/swelling at site. Pressure mt4 dressing applied. 23:21 Patient maintains SpO2 saturation greater than 95% on room air. mt4 Administered Medications: 20:18 Drug: HYDROcodone-acetaminophen PO 5 mg-325 mg 2 tabs PO once Route: PO; al5 21:39 Follow up: Response: No adverse reaction; Pain is unchanged, physician notified al5 20:18 Drug: Ibuprofen PO 800 mg PO once Route: PO; al5 21:39 Follow up: Response: No adverse reaction; Pain is decreased al5 20:18 Drug: Methocarbamol PO 1500 mg PO once Route: PO; al5 21:39 Follow up: Response: Pain is unchanged, physician notified al5 22:03 Drug: Mcpherson PO 10 mg-325 mg 1 tabs PO once Route: PO; mt4 22:52 Follow up: Response: No adverse reaction mt4 Medication: 20:01 VIS not applicable for this client. al5 Outcome: 21:54 Discharge ordered by . sp4 23:21 Discharged to home via ambulance, mt4 23:21 Condition: stable 23:21 Discharge instructions given to patient, Instructed on discharge instructions, follow up and referral plans. medication usage, Demonstrated understanding of instructions, follow-up care, medications, Prescriptions given X 2, 23:25 Patient left the ED. mt4 Addendum: 04/04/2024 12:20 Addendum: Other [facility] called to confirm RX for mathocarbamol 750 mg, q8h x10 days, j l7 dispense amount #6. Dr. Phillip authorized dispense of 30 tablets. Signatures: Dispatcher [employer] EDMS Shasta Buitrago RN RN jl7 Paola Fisher, RN RN kb3 Jez Lui MD MD sp4 Wilmer Valentino RN RN mt4 Ana Mayen RN RN al5 Corrections: (The following items were deleted from the chart) 04/02 23:22 23:21 Oxygen administration via nasal cannula va4 va4 04/04 12:22 12:20 Addendum: Other [facility] called to confirm RX for mathocarbamol 750 mg, q8h x10 days, jl7 dispense amount #6. Dr. Phillip authorized dispense of 30 tablets kb3
--- NOTE | 2024-04-02 21:55 | EDPHYS ---
Physician Documentation [facility] Name: Emily Mccabe Age: 59 yrs Sex: Female : 1965 Arrival Date: 04/02/2024 Time: 19:48 Bed 7 Private MD: ED Physician Jez Lui HPI: 04/02 19:54 This 59 yrs old Black Female presents to ER via Unassigned with complaints of Knee Pain.sp4 20:27 Patient is 59-year-old female with past medical history of diabetes, degenerative sp4 arthritis, hypertension, congestive heart failure presents with bilateral knee pain for several days. Patient reports she had ultrasound 2 weeks ago here to rule out DVT. Ever since her ultrasounds she has been feeling unwell and having worsening knee pains. Right knee hurts worse than left. Historical: - Allergies: 19:58 No Known Allergies; al5 - PMHx: 19:58 Arthritis; Hypertensive disorder; Diabetes mellitus; Congestive heart failure; al5 - PSHx: 19:58 None; al5 - Immunization history:: Adult Immunizations up to date. - Infectious Disease History:: Denies. - Social history:: Smoking status: Patient denies any tobacco usage or history of. ROS: 20:30 Constitutional: Negative for fever, chills, and weight loss, positive for bilateral sp4 knee pain, positive for bilateral lower extremity worsening swelling. 20:30 All other systems are negative, Exam: 20:28 Constitutional: This is a well developed, well nourished patient who is awake, alert, sp4 and in no acute distress. Patient is overweight female with bilateral lower extremity swelling without pitting. Signs of moderate physical deconditioning. Head/Face: Normocephalic, atraumatic. Eyes: Pupils equal round and reactive to light, extra-ocular motions intact. Lids and lashes normal. Conjunctiva and sclera are not injected. Cornea within normal limits. Periorbital areas with no swelling, redness, or edema. ENT: Nares patent. No nasal discharge, no septal abnormalities noted. Tympanic membranes are normal and external auditory canals are clear. Oropharynx with no redness, swelling, or masses, exudates, or evidence of obstruction, uvula midline. Mucous membranes moist. Neck: Trachea midline, no thyromegaly or masses palpated, and no cervical lymphadenopathy. Supple, full range of motion without nuchal rigidity, or vertebral point tenderness. Chest/axilla: Normal chest wall appearance and motion. Nontender with no deformity. No lesions are appreciated. Cardiovascular: Regular rate and rhythm with a normal S1 and S2. No gallops, murmurs, or rubs. Normal PMI, no JVD. No pulse deficits. Respiratory: Lungs have equal breath sounds bilaterally, clear to auscultation and percussion. No rales, rhonchi or wheezes noted. No increased work of breathing, no retractions or nasal flaring. Abdomen/GI: Soft, with normal bowel sounds. No distension or tympany. No guarding or rebound. No evidence of tenderness throughout. Back: No spinal tenderness. No costovertebral tenderness. Skin: Warm, dry with normal turgor. Normal color with no rashes, no lesions, and no evidence of cellulitis. MS/ Extremity: Pulses equal, no cyanosis. Neurovascular intact. Full, normal range of motion. Positive for bilateral lower extremity edema without pitting. Equally distributed bilateral lower extremity edema. Patient has signs of poor mobility and moderate physical deconditioning. Neuro: Awake and alert, GCS 15, oriented to person, place, time, and situation. Cranial nerves II-XII grossly intact. Motor strength 5/5 in all extremities. Sensory grossly intact. Psych: Awake, alert, with orientation to person, place and time. Behavior, mood, and affect are within normal limits 20:28 ECG was reviewed by the Attending Physician. EKG normal sinus rhythm left axis deviation otherwise normal. Vital Signs: 19:40 BP 139 / 59; Pulse 96; Resp 18; Pulse Ox 99% on R/A; al5 19:52 BP 139 / 59; Pulse 93; Resp 18; Temp 100; Pulse Ox 100% on R/A; Weight 131.54 kg; al5 Height 5 ft. 5 in. ; 20:00 BP 136 / 95; Pulse 94; Resp 18; Pulse Ox 98% on R/A; al5 20:30 BP 121 / 78; Pulse 87; Resp 18; Pulse Ox 99% on R/A; al5 21:00 BP 117 / 68; Pulse 83; Resp 18; Pulse Ox 100% on R/A; al5 22:03 BP 114 / 67; Pulse 83; Resp 17 S; Pulse Ox 98% on R/A; Pain 8/10; mt4 22:57 BP 107 / 81; Pulse 84; Resp 20; Pulse Ox 99% on R/A; mt4 19:52 Body Mass Index 48.26 (131.54 kg, 165.1 cm) al5 22:03 Pain Scale: Adult mt4 [place] Coma Score: 20:28 Eye Response: spontaneous(4). Motor Response: obeys commands(6). Verbal Response: sp4 oriented(5). Total: 15. MDM: 19:57 Medical Screening Exam initiated sp4 20:35 ED course: CLINICAL HISTORY: Fall TECHNIQUE: Frontal view of the pelvis. COMPARISON: No sp4 relevant prior studies available. FINDINGS: Bones/joints: No acute fracture. Mild degenerative changes at the hip joints bilaterally. Moderate degenerative changes at the lower lumbar spine. No dislocation. Soft tissues: Unremarkable. * A single impression for all exams can be found at the end of this report EXAM DESCRIPTION: XR Left Hip, 2 Views CLINICAL HISTORY: Fall TECHNIQUE: Two views of the left hip. COMPARISON: No relevant prior studies available. FINDINGS: Bones/joints: No acute fracture. Mild degenerative changes. No dislocation. Soft tissues: Unremarkable. * A single impression for all exams can be found at the end of this report IMPRESSION: XR Pelvis, 1 View: No acute injury. XR Left Hip, 2 Views: No acute injury. Electronically signed by: Michelle Gold MD 02/18/2023 3:37 AM CDT Workstation . 21:56 ED course: RADIOLOGYSERVICES REPORT Name: EMILY MCCABE Acct Number: [id number] [facility] :1965 Age:59 Sex:F Ord Phys: Jez Lui MD Unit Number: [id number] [place] [address]: NONE Status: REG ER ER Exam Date: 04/02/24 EXAM: Knee Left 2 View INDICATION: pain in left knee , arthritis COMPARISON: None FINDINGS: No acute fracture. No significant knee effusion. Tricompartmental degenerative changes which are at least moderate in all 3 compartments Other: n/a IMPRESSION: No evidence of acute osseous abnormality involving the imaged knee. . ED course: EXAM: Knee Right 2 View INDICATION: pain in knee COMPARISON: None FINDINGS: No acute fracture. Small to moderate knee effusion. Tricompartmental degenerative changes which are [id number] in the medial compartment, mild lateral compartment, and moderate in the patellofemoral compartment. Other: n/a IMPRESSION: No evidence of acute osseous abnormality involving the imaged knee. Tricompartmental degenerative changes. Small to moderate nonspecific knee effusion. . 22:36 Differential diagnosis: closed fracture, contusion, abrasion, tendonitis, sp4 Musculoskeletal pain. Data reviewed: vital signs, nurses notes, lab test result(s), CBC, electrolytes, hepatic panel, radiologic studies, plain films. Consideration of Admission/Observation Escalation of care including admission/observation considered. ED course: Positive for bilateral arthritic knee changes.. No sign of DVT based on examination. Will recommend low impact exercise like careful walking to circulate fluid. Will recommend to continue p.o. Lasix at home. Patient also advised to see orthopedist Dr. Saldana for evaluation and possibly intra-articular knee injections. . 04/02 19:54 Order name: Basic Metabolic Panel; Complete Time: 21:40 4 04/02 19:54 Order name: CBC with Diff; Complete Time: 21:40 4 04/02 19:54 Order name: LFT's; Complete Time: 21:40 4 04/02 19:54 Order name: NT PRO-BNP; Complete Time: 21:40 4 04/02 19:54 Order name: PT-INR; Complete Time: 21:40 [facility] 04/02 19:54 Order name: Troponin HS; Complete Time: 21:40 4 04/02 19:58 Order name: Knee Right 2 View XRAY; Complete Time: 21:40 4 04/02 19:59 Order name: Knee Left 2 View XRAY; Complete Time: 21:40 4 04/02 19:54 Order name: EKG; Complete Time: 19:54 [facility] 04/02 19:54 Order name: Cardiac monitoring; Complete Time: 20:18 4 04/02 19:54 Order name: EKG - Nurse/Tech; Complete Time: 20:18 4 04/02 19:54 Order name: IV Saline Lock; Complete Time: 20:10 4 04/02 19:54 Order name: Labs collected and sent; Complete Time: 20:18 sp4 04/02 19:54 Order name: O2 Per Protocol; Complete Time: 20: sp4 04/02 19:54 Order name: O2 Sat Monitoring; Complete Time: 20: sp4 04/02 22:50 Order name: Knee Immobilizer; Complete Time: 22:58 sp4 EC:28 Rate is 83 beats/min. Rhythm is regular, Normal Sinus Rhythm. Left axis deviation sp4 noted. LA interval is normal. QRS interval is normal. QT interval is normal. No Q waves. T waves are Normal. No ST changes noted. Clinical impression: No evidence of ischemia. Interpreted by me. Reviewed by me. Administered Medications: 20:18 Drug: HYDROcodone-acetaminophen PO 5 mg-325 mg 2 tabs PO once Route: PO; al5 21:39 Follow up: Response: No adverse reaction; Pain is unchanged, physician notified al5 20:18 Drug: Ibuprofen PO 800 mg PO once Route: PO; al5 21:39 Follow up: Response: No adverse reaction; Pain is decreased al5 20:18 Drug: Methocarbamol PO 1500 mg PO once Route: PO; al5 21:39 Follow up: Response: Pain is unchanged, physician notified al5 22:03 Drug: [place] PO 10 mg-325 mg 1 tabs PO once Route: PO; mt4 22:52 Follow up: Response: No adverse reaction mt4 Disposition Summary: 04/02/24 21:54 Discharge Ordered Notes: Location: Home sp4 Problem: new sp4 Symptoms: have improved sp4 Condition: Stable sp4 Diagnosis - Right knee degenerative arthritis, left knee degenerative arthritis, acute sp4 musculoskeletal pain of the right thigh and knee, physical deconditioning Followup: sp4 - With: Private Physician - When: 7 - 10 days - Reason: Recheck today's complaints Followup: sp4 - With: Siva Saldana MD - When: 7 - 10 days - Reason: Recheck today's complaints Discharge Instructions: - Discharge Summary Sheet sp4 - Musculoskeletal Pain sp4 Forms: - Patient Portal Instructions sp4 Prescriptions: - methocarbamol 750 mg Oral tablet - take 2 tablets ORAL route every 8 hours for 10 days PRN pain; 6 tablet; sp4 Refills: 0, Product Selection Permitted Signatures: Dispatcher [employer] Jez Guevara MD MD sp4 Wilmer Valentino RN RN mt4 Ana Mayen, RN RN al5 Corrections: (The following items were deleted from the chart) 19 19:54 BASIC METABOLIC PANEL+C.LAB.BRZ ordered. EDMS EDMS 19:54 CBC+H.LAB.BRZ ordered. EDMS EDMS 19:54 HEPATIC FUNCTION+C.LAB.BRZ ordered. EDMS EDMS 19:54 PROBNP+C.LAB.BRZ ordered. EDMS EDMS : 19:54 PROTIME (+INR)+COAG.LAB.BRZ ordered. EDMS EDMS 19:54 Troponin High Sensitivity+C.LAB.BRZ ordered. EDMS EDMS
[2024-04-02] MEDS ORDERED: HYDROCODONE/APAP 10/325 TAB ONE (21:59)
[2024-04-03 00:17] VITALS: BP 107/81; TEMP 100; O2SAT 99
--- NOTE | 2024-04-04 12:22 | EKG ---
Test Date: 2024-04-02 Test Time: 21:17:28 [employer] Planner: [employer] MEASUREMENT RESULTS: Intervals: Rate: 83 DC: 188 QRSD: 98 QT: 402 QTc: 472 [place]: P: 75 DC: 188 QRS: -56 T: 74 INTERPRETIVE STATEMENTS: Normal sinus rhythm Left axis deviation Low voltage QRS Abnormal ECG Compared to ECG 05/21/2013 14:16:50 Left-axis deviation now present Low QRS voltage now present Myocardial infarct finding no longer present Electronically Signed On 04-04-24 12:17:52 CHIEF ENVIRONMENTAL COMMITMENT OFFICER by Arturo Collazo
== END 2024-04-02 23:25 | disposition home or self-care (01) ==
LOC: ER 19:48
DX: M17.0 Bilateral primary osteoarthritis of knee (principal); M79.651 Pain in right thigh; E11.9 Type 2 diabetes mellitus without complications; I10 Essential (primary) hypertension; I50.9 Heart failure, unspecified; R53.81 Other malaise
CPT/HCPCS: 36415; 80048; 80076; 83880; 84484; 85025; 85610; 93005; 99284